=== PATIENT | female | born 1975 | race Caucasian/White ===

== ENCOUNTER 2016-08-12 08:06 | Emergency (ER) | payer OTHER ==
[2016-08-12 08:18] VITALS: BP 113/76; TEMP 98.7; BMI 28.3
--- NOTE | 2016-08-12 08:26 | PDOC ---
History of Present Illness - General Chief Complaint: Substance Abuse Stated Complaint: OVERDOSE Time Seen by Provider: 08/12/16 08:26 History Source: Patient - History of Present Illness Initial Comments: 08/12/16 09:09 Ms. Aragon is a dishevelled 40 y/o female with no reported PMH presenting to the ED today complaining of SOB. Pt. states that she has been out partying since Friday08/09/16 and stopped partying this morning 08/12/16. She states that she was drinking alcohol and experimenting with crack cocaine and dope all weekend. She denies IV drug use. Pt. states that once she stopped partying this morning she noticed she was short of breath. Pt. states she is short of breath at rest and it becomes worse with walking. Also admits to light headedness, dizziness, anxiety and palpitations. Denies chest pain, edema, N/V/ D. Pt. is an everyday smoker (10 cigarettes) with a 10 pack year history. Denies any sick contacts. In regards to her , Ms. Aragon is unsure of her LMP, but believes it to be around 05/20/16. She has not had any medical care regarding her . GENERAL/CONSTITUTIONAL: No fever or chills. No weakness. No weight change. HEAD, EYES, EARS, NOSE AND THROAT: No change in vision. No ear pain or discharge. No sore throat. CARDIOVASCULAR: No chest pain or palpitations. RESPIRATORY: (+) cough, shortness of breath, (-) wheezing. GASTROINTESTINAL: No nausea, vomiting, diarrhea or constipation. GENITOURINARY: No dysuria, frequency, or change in urination. MUSCULOSKELETAL: No joint or muscle swelling or pain. No neck or back pain. SKIN: No rash or easy bruising. NEUROLOGIC: No headache, vertigo, loss of consciousness, or loss of sensation. PSYCHIATRIC: (+) drug and alcohol abuse, anxiety. No depression. ENDOCRINE: No increased thirst. No abnormal weight change. HEMATOLOGIC/LYMPHATIC: No anemia, easy bleeding, or history of blood clots. ALLERGIC/IMMUNOLOGIC: No hives or skin allergy. No latex allergy. 08/12/16 10:52 08/12/16 13:38 Past History - Past Medical History Allergies/Adverse Reactions: Allergies Allergy/AdvReac Type Severity Reaction Status Date / Time No Known Allergies Allergy Verified 08/12/16 08:11 Home Medications: Ambulatory Orders NK [No Known Home Medication] 04/17/16 Anemia: Yes Asthma: Yes ( A CHILD-TEEN) Cancer: No Cardiac Disorders: No CVA: No COPD: No CHF: No Dementia: No Diabetes: No GI Disorders: No Disorders: No HTN: No Hypercholesterolemia: No Kidney Stones: No Liver Disease: No Suicide Attempt (Hx): No Seizures: No Thyroid Disease: No Other medical history: durg abuse - Surgical History Abdominal Surgery: Yes (gastric bypass) Appendectomy: No Cardiac Surgery: No Cholecystectomy: No Lung Surgery: No Neurologic Surgery: No Orthopedic Surgery: No - Reproductive History PID: No - Psycho/Social/Smoking Cessation Hx Anxiety: Yes Suicidal Ideation: No Smoking Status: Yes Smoking History: Current every day smoker Have you smoked in the past 12 months: Yes Number of Cigarettes Smoked Daily: 10 Information on smoking cessation initiated: Yes 'Breaking Loose' booklet given: 08/12/16 Hx Alcohol Use: Yes Drug/Substance Use Hx: Yes (alex,heroin,coccaine) Substance Use Type: Cocaine, Heroin, Marijuana Hx Substance Use Treatment: Yes ([facility] 05/01/12 TO 05/03/12) *Physical Exam - Vital Signs Last Vital Signs Temp Pulse Resp BP Pulse Ox 98.7 F 80 18 113/76 100 08/12/16 08:14 08/12/16 08:14 08/12/16 08:14 08/12/16 08:14 08/12/16 08:14 - Physical Exam Comments: 08/12/16 09:16 GENERAL: Anxious, dishevelled 40 y/o female AAOx3, pacing ED. NAD HEAD: Normal with no signs of trauma. ENT: Pupils equal, round and reactive to light, extraocular movements intact, sclera anicteric, conjunctiva clear. Neck supple. (-) erythema/ swelling in the posterior pharynx/nasal passages. LUNGS: Pt. speaking softly. Able to speak in full sentences. Clear to auscultation bilaterally. Normal excursion. No respiratory distress or use of accessory muscles. CV: RRR, S1/S2, no MRG. Cap refill < 2 sec. ABDOMEN: Soft, non-distended, non-tender. EXTREMITIES: Normal range of motion, no edema. NEUROLOGICAL: Normal speech, normal gait. CN II-XII grossly intact. PSYCH: Anxious, pacing ED. (+) opioid and alcohol abuse SKIN: Warm, dry, normal turgor, no rashes or lesions noted. ED Treatment Course - LABORATORY CBC & Chemistry Diagram: 08/12/16 09:08 08/12/16 09:08 Medical Decision Making - Medical Decision Making 08/12/16 09:20 Pt. is a 40 y/o female who is withdrawing from opioids and alcohol abuse. 1. Will order labs including CBC, CMP, Cardiac panel, EKG to rule out ACS. 2. Urine analysis with UTOX and ordered. 3. Symptomatic treatment including valium for anxiety, duoneb for shortness of breath and IV hydration 4. Will re-evaluate. 08/12/16 10:08 Pt. is at this time. Informed of status. 08/12/16 10:54 Pt. to be sent for transvaginal pelvic ultrasound to confirm status. 08/12/16 11:14 Drug screen is positive for cocaine, PCP, opiates, and marijuana. Pt. offered detox, but pt. denies needing it at this time. She is not interested in perusing detox further. 08/12/16 13:39 Transvaginal US shows a live IUP approximatley 6 weeks and 3 days in age. *DC/Admit/Observation/Transfer Diagnosis at time of Disposition: Polysubstance abuse Conjunctivitis Qualifiers: Conjunctivitis type: acute Acute conjunctivitis type: viral Laterality: bilateral Qualified Code(s): B30.9 - Viral conjunctivitis, unspecified - Discharge Dispostion Disposition: HOME Condition at time of disposition: Improved - Referrals Referrals: Betito Coy MD [Primary Care Provider] - - Patient Instructions Printed Discharge Instructions: Getting Treatment for Drug Addiction, DI for Conjunctivitis, Managing Symptoms of Additional Instructions: Blood tests today showed no acute abnormalities in the heart or lungs. The difficulty breathing was likely a reaction to the substances used this weekend. Avoid any and all drug use and alcohol use, especially since blood tests today confirmed you are (about 6 weeks based on the ultrasound). Seek help with a detox facility if needed. Consider calling our [facility] pavilion. Take over the counter benadryl for eye irritation. If symptoms persist after another 2 or 3 days, apply bacitracin twice daily to the affected eyes. Return to the Emergency Department for any new or concerning symptoms, including chest pain or shortness of breath, abdominal pain or vaginal discharge /bleeding, fever/chills, cough.
[2016-08-12] MEDS ORDERED: diazePAM CARPU-JECT 10 MG/2 ML DISP.SYRIN IVPUSH ONE (08:47)
[2016-08-12] MEDS ORDERED: SODIUM CHLORIDE 1,000 ML IV STA (08:50)
[2016-08-12] MEDS ORDERED: ALBUTEROL SO4 2.5/IPRATROPIUM 0.5 INH SOL 3 ML VIAL.NEB. NEB ONE (08:50)
[2016-08-12] MEDS ORDERED: diazePAM CARPU-JECT 10 MG/2 ML DISP.SYRIN ONE (08:56)
[2016-08-12 09:35] LABS: EOSINOPHIL 0.7 % (0-4.5); MCH 26.5 pg (25.7-33.7); MCHC 32.1 g/dl (32.0-36.0); MEAN CELL VOLUME 82.7 fl (80-96); MEAN PLT VOLUME 6.9 fl (7.5-11.1); PLATELET COUNT 287 K/MM3 (134-434); RDW 18.8 % (11.6-15.6); WHITE BLOOD COUNT 9.8 K/mm3 (4.0-10.0)
[2016-08-12 09:36] LABS: URINE APPEARANCE CLEAR; URINE BILIRUBIN NEGATIVE (NEGATIVE); URINE BLOOD NEGATIVE (NEGATIVE); URINE COLOR YELLOW; URINE GLUCOSE (UA) NEGATIVE (NEGATIVE); URINE KETONE NEGATIVE (NEGATIVE); URINE LEUK ESTERASE NEGATIVE (NEGATIVE); URINE NITRITE NEGATIVE (NEGATIVE); URINE PROTEIN NEGATIVE (NEGATIVE); URINE UROBILINOGEN NEGATIVE E.U./dl (0.2-1.0)
[2016-08-12 09:54] LABS: ALBUMIN 3.6 g/dl (3.4-5.0); ANION GAP 9 (8-16); BILIRUBIN,TOTAL 0.5 mg/dL (0.2-1.0); CALCIUM 8.2 mg/dL (8.5-10.1); CO2 25 mmol/L (21-32); CREATININE 0.5 mg/dL (0.55-1.02); GLUCOSE,RANDOM 98 mg/dL (74-106); SGOT/AST 30 U/L (15-37); SGPT/ALT 26 U/L (12-78); TOT PROT 6.9 g/dl (6.4-8.2)
[2016-08-12 09:55] LABS: TROPONIN I < 0.02 ng/ml (0.00-0.05)
--- NOTE | 2016-08-12 10:04 | PDOC ---
*Physical Exam - Vital Signs Last Vital Signs Temp Pulse Resp BP Pulse Ox 98.7 F 80 18 113/76 100 08/12/16 08:14 08/12/16 08:14 08/12/16 08:14 08/12/16 08:14 08/12/16 08:14 - Physical Exam Comments: 08/12/16 10:02 Vitals as noted. Ambulating comfortably, speaking full sentences, lungs are clear Heart Score/ECG Review #1 ECG reviewed & interpreted by me at: 09:33 General ECG Interpretation: Sinus Rhythm, Normal Rate (68), Normal Intervals ( qtc 489), No acute ischemic changes ED Treatment Course - LABORATORY CBC & Chemistry Diagram: 08/12/16 09:08 08/12/16 09:08 - ADDITIONAL ORDERS Additional order review: Laboratory Results 08/12/16 08/12/16 08/12/16 09:08 09:08 09:08 Sodium 140 Potassium 3.8 Chloride 106 Carbon Dioxide 25 Anion Gap 9 BUN 8 D Creatinine 0.5 L Creat Clearance w eGFR > 60 Random Glucose 98 Calcium 8.2 L Total Bilirubin 0.5 D AST 30 ALT 26 Creatine Kinase 581 H Troponin I < 0.02 Total Protein 6.9 Albumin 3.6 Urine Color Yellow Urine Appearance Clear Urine pH 7.0 Ur Specific [place] 1.024 Urine Protein Negative Urine Glucose (UA) Negative Urine Ketones Negative Urine Blood Negative Urine Nitrite Negative Urine Bilirubin Negative Urine Urobilinogen Negative Ur Leukocyte Esterase Negative Urine HCG, Qual 08/12/16 08:55 Sodium Potassium Chloride Carbon Dioxide Anion Gap BUN Creatinine Creat Clearance w eGFR Random Glucose Calcium Total Bilirubin AST ALT Creatine Kinase Troponin I Total Protein Albumin Urine Color Urine Appearance Urine pH Ur Specific [place] Urine Protein Urine Glucose (UA) Urine Ketones Urine Blood Urine Nitrite Urine Bilirubin Urine Urobilinogen Ur Leukocyte Esterase Urine HCG, Qual Positive 08/12/16 09:08 RBC 4.07 MCV 82.7 MCHC 32.1 RDW 18.8 H D MPV 6.9 L Neutrophils % 70.0 Lymphocytes % 19.5 Monocytes % 8.8 Eosinophils % 0.7 Basophils % 1.0 - Medications Given in the ED: ED Medications Discontinued Medications Generic Name Dose Route Start Last Admin Trade Name Freq PRN Reason Stop Dose Admin Albuterol/Ipratropium 1 amp 08/12/16 08:50 08/12/16 09:17 Duoneb - NEB 08/12/16 08:51 1 amp ONCE ONE Administration Diazepam 5 mg 08/12/16 08:47 08/12/16 09:17 Valium Injection - IVPUSH 08/12/16 08:48 5 mg ONCE ONE Administration Sodium Chloride 1,000 mls @ 1,000 mls/hr 08/12/16 08:50 08/12/16 09:17 Normal Saline - IV 08/12/16 09:49 1,000 mls/hr ASDIR STA Administration Medical Decision Making - Medical Decision Making 08/12/16 10:02 Patient seen and evaluated with the nurse practitioner. I agree with the overall evaluation, assessment, and management with the following summary of visit: 40-year-old female presents after weekend of polysubstance abuse with difficulty breathing, agitation. Rule out cardiopulmonary injury and substance abuse, likely has early withdrawal as well. Full set of labs including troponin EKG is nonischemic Chest x-ray Trial of nebulizers, Valium intravenously for withdrawal Will reassess, admission versus detox *DC/Admit/Observation/Transfer Diagnosis at time of Disposition: Polysubstance abuse - Referrals Referrals: Betito Coy MD [Primary Care Provider] -
[2016-08-12 10:12] LABS: ALK PHOS 75 U/L (45-117)
--- NOTE | 2016-08-12 10:59 | EKG ---
Test Reason : Blood Pressure : / mmHG Vent. Rate : 068 BPM Atrial Rate : 068 BPM P-R Int : 132 ms QRS Dur : 086 ms QT Int : 460 ms P-R-T Axes : 062 048 046 degrees QTc Int : 489 ms NORMAL SINUS RHYTHM PROLONGED QT ABNORMAL ECG NO PREVIOUS ECGS AVAILABLE Confirmed by MARTIN CANTRELL MD ([id number]) on 08/12/2016 10:59:14 AM Referred By: Confirmed By:MARTIN CANTRELL MD
[2016-08-12 11:01] LABS: URINE MARIJUANA THC POSITIVE ng/ml (CUTOFF=50)
[2016-08-12] MEDS ORDERED: BACITRACIN 0.9 GM PACKET ONE (13:51)
[2016-08-12 13:55] VITALS: PULSE 90
== END 2016-08-12 13:55 | disposition home or self-care (01) ==
LOC: JER 08:06
PROC: 3E0F7GC Introduction of Other Therapeutic Substance into Respiratory Tract, Via Natural or Artificial Opening (ICD-10-PCS; principal; 2016-08-12)
PROC: 3E0337Z Introduction of Electrolytic and Water Balance Substance into Peripheral Vein, Percutaneous Approach (ICD-10-PCS; 2016-08-12)
PROC: 3E033NZ Introduction of Analgesics, Hypnotics, Sedatives into Peripheral Vein, Percutaneous Approach (ICD-10-PCS; 2016-08-12)
DX: F19.10 Other psychoactive substance abuse, uncomplicated (principal); H10.33 Unspecified acute conjunctivitis, bilateral; B30.9 Viral conjunctivitis, unspecified; F17.210 Nicotine dependence, cigarettes, uncomplicated; Z3A.01 Less than 8 weeks gestation of pregnancy
CPT/HCPCS: 36415; 71020-TC; 76801-TC; 80053; 80307; 81003; 82550; 82553; 84484; 84702; 85025; 93005; 93010; 94640; 96361; 96374; 99285-25

== ENCOUNTER 2017-01-13 23:54 | Emergency (ER) | payer OTHER ==
--- NOTE | 2017-01-14 00:02 | PDOC ---
History of Present Illness - General Chief Complaint: Psychiatric Stated Complaint: STATES SHE CANT BREATHE Time Seen by Provider: 01/13/17 23:58 History Source: Patient Exam Limitations: No Limitations ((Awais rincon) - History of Present Illness Initial Comments: 01/13/17 23:58 This is a 41-year-old female who comes in with her significant other. Patient is heavily intoxicated and having an anxiety/panic attack. Patient is asking for benzos for her anxiety panic attack. Patient's significant other said she is an alcoholic and needs detox. Otherwise patient is complaining of shortness of breath. Patient is not had any recent upper respiratory tract infections. There is been no chest pain, nausea, vomiting, diarrhea, fever, chills or any other complaints. PAST MEDICAL HISTORY: Alcohol dependence PAST SURGICAL HISTORY: no significant history FAMILY HISTORY: no pertinant history SOCIAL HISTORY: Pt lives with family MEDICATIONS: reviewed ALLERGIES: As per nursing notes Review of Systems General: No fevers or chills, no weakness, no weight loss HEENT: No change in vision. No sore throat,. No ear pain CardioVascular: No chest pain or shortness of breath Respiratory:No cough, or wheezing. Gastrointestinal: no nausea, vomitting, diarrhea or constipation, No rectal bleeding Genitourinary: No dysuria, hematuria, or frequency Musculoskeletal: No joint or muscle pain or swelling Neurologic: No headache, vertigo, dizziness or loss of consciousness Psychiatric: Alcohol on breath Skin: No rashes or easy bruising Endocrine: no increased thirst or abnormal weight change Allergic: no skin or latex allergy All other systems reviewed and normal Exam: General: Well-nourished well-developed individual, no acute distress, positive alcohol on breath HEENT: Throat: Normal, tonsils normal, no erythema or exudate Neck: Supple, no meningeal signs, no lymphadenopathy Eyes::Pupils equal reactive and round, extraocular motion intact Chest: Nontender to palpation Cardiac: S1-S2 normal, regular rate and rhythm, no murmurs rubs or gallops Respiratory: Lungs clear to auscultation bilateral Abdomen: Soft, nondistended, normal bowel sounds, nontender to palpation diffusely Extremities: Warm, dry, no cyanosis, clubbing, or edema Skin: No rashes Neuro: Alert and oriented x3, nonfocal exam, grossly intact, normal gait Psych: Normal mood and affect Assessment and plan: This is a 41-year-old female with alcohol intoxication. Patient comes in with her significant other, is ambulatory in the emergency room with somewhat unsteady gait. Patient otherwise has minimally slurred speech. Patient's significant other is willing to take her home watch her overnight and take her to [facility] in the morning for alcohol detox. Past History - Past Medical History Allergies/Adverse Reactions: Allergies Allergy/AdvReac Type Severity Reaction Status Date / Time No Known Allergies Allergy Verified 01/13/17 23:55 Home Medications: Ambulatory Orders NK [No Known Home Medication] 04/17/16 Anemia: Yes Asthma: Yes ( A CHILD-TEEN) Cancer: No Cardiac Disorders: No CVA: No COPD: No CHF: No Dementia: No Diabetes: No GI Disorders: No Disorders: No HTN: No Hypercholesterolemia: No Kidney Stones: No Liver Disease: No Suicide Attempt (Hx): No Seizures: No Thyroid Disease: No - Surgical History Abdominal Surgery: Yes (gastric bypass) Appendectomy: No Cardiac Surgery: No Cholecystectomy: No Lung Surgery: No Neurologic Surgery: No Orthopedic Surgery: No - Reproductive History PID: No - Psycho/Social/Smoking Cessation Hx Anxiety: Yes Suicidal Ideation: No Smoking Status: Yes Smoking History: Current every day smoker Have you smoked in the past 12 months: Yes Number of Cigarettes Smoked Daily: 10 'Breaking Loose' booklet given: 08/12/16 Hx Alcohol Use: Yes Drug/Substance Use Hx: Yes (alex,heroin,coccaine) Substance Use Type: Cocaine, Heroin, Marijuana Hx Substance Use Treatment: Yes ([facility] 05/01/12 TO 05/03/12) *DC/Admit/Observation/Transfer Diagnosis at time of Disposition: Alcohol intoxication - Discharge Dispostion Disposition: HOME Condition at time of disposition: Stable Admit: No - Patient Instructions Additional Instructions: You need alcohol detox. In the morning go to [facility] [address] in [facility]. The phone number is [phone] Return to the emergency department immediately with ANY new, persistent or worsening symptoms. Continue any medications as previously prescribed by your physician. You should follow up with your primary doctor as soon as possible regarding today's emergency department visit. . Please make sure your doctor reviews the results of your emergency evaluation. Thank you for coming to the Emergency Department today for your care. It was a pleasure to see you today. Please note that your evaluation is INCOMPLETE until you follow-up with your doctor.
[2017-01-14 00:03] VITALS: BP 103/66; PULSE 73; TEMP 97
== END 2017-01-14 00:16 | disposition home or self-care (01) ==
LOC: FER 23:54
DX: F10.120 Alcohol abuse with intoxication, uncomplicated (principal); F17.210 Nicotine dependence, cigarettes, uncomplicated; Z98.84 Bariatric surgery status; J45.909 Unspecified asthma, uncomplicated
CPT/HCPCS: 99281-25

== ENCOUNTER 2017-04-14 09:59 | Emergency (ER) | payer OTHER ==
[2017-04-14 10:07] VITALS: BP 119/70; PULSE 76; TEMP 98.6; BMI 30.2
[2017-04-14] MEDS ORDERED: IBUPROFEN 600 MG TABLET (FP) PO ONE ×2 (12:14→12:26)
--- NOTE | 2017-04-14 12:22 | PDOC ---
History of Present Illness - General Chief Complaint: Wound Stated Complaint: RT FINGER PAIN Time Seen by Provider: 04/14/17 11:33 History Source: Patient Exam Limitations: No Limitations - History of Present Illness Initial Comments: 04/14/17 19:49 My chief complaint: Tenderness and redness around nailbed right middle finger History of present illness: Patient is a 41-year-old female with h/o anemia here today complaining of worsening tenderness or redness around her right middle nailbed for one week. Patient denies getting any manicure however despite her cuticles at times. Patient is up-to-date with tetanus. Patient denies any fever. 04/14/17 19:50 04/14/17 19:52 Timing/Duration: getting worse Severity: moderate Associated Symptoms: reports: denies symptoms Past History - Past Medical History Allergies/Adverse Reactions: Allergies Allergy/AdvReac Type Severity Reaction Status Date / Time No Known Allergies Allergy Verified 04/14/17 10:04 Home Medications: Ambulatory Orders Cephalexin Monohydrate [Keflex -] 500 mg PO Q8H #20 capsule 04/14/17 Anemia: Yes Asthma: Yes ( A CHILD-TEEN) Cancer: No Cardiac Disorders: No CVA: No COPD: No CHF: No Dementia: No Diabetes: No GI Disorders: No Disorders: No HTN: No Hypercholesterolemia: No Kidney Stones: No Liver Disease: No Seizures: No Thyroid Disease: No - Surgical History Abdominal Surgery: Yes (gastric bypass) Appendectomy: No Cardiac Surgery: No Cholecystectomy: No Lung Surgery: No Neurologic Surgery: No Orthopedic Surgery: No - Reproductive History PID: No - Immunization History Immunization Up to Date: Yes - Suicide/Smoking/Psychosocial Hx Smoking Status: Yes Smoking History: Current every day smoker Have you smoked in the past 12 months: Yes Number of Cigarettes Smoked Daily: 10 Information on smoking cessation initiated: No 'Breaking Loose' booklet given: 08/12/16 Hx Alcohol Use: No Drug/Substance Use Hx: No Substance Use Type: Cocaine, Heroin, Marijuana Hx Substance Use Treatment: Yes ([facility] 05/01/12 TO 05/03/12) Review of Systems - Review of Systems Able to Perform ROS?: Yes Constitutional: No: Symptoms Reported HEENTM: No: Symptoms Reported Respiratory: No: Symptoms reported Cardiac (ROS): No: Symptoms Reported ABD/GI: No: Symptoms Reported : No: Symptoms Reported Musculoskeletal: No: Symptoms Reported Integumentary: Yes: Other (redness and edema rt. middle finger around nailbed) Neurological: No: Symptoms reported *Physical Exam - Vital Signs Last Vital Signs Temp Pulse Resp BP Pulse Ox 98.6 F 76 18 119/70 98 04/14/17 10:04 04/14/17 10:04 04/14/17 10:04 04/14/17 10:04 04/14/17 10:04 - Physical Exam General Appearance: Yes: Appropriately Dressed Integumentary: positive: Erythema (edema, tenderness eponchium rt. middle finger ), Swelling (rt. middle finger around nailbed) Procedures - Consent Consent obtained: From Patient - Incision and Drainage I&D Site: Right: Other (around nailbed middle) Betadine cleansed: Yes Attempts: 1 (18 gauge) Progress: 04/14/17 12:20 Medical Decision Making - Medical Decision Making 04/14/17 19:51 Patient is a 41-year-old female with h/'o anemia here today complaining of worsening tenderness or redness around her right middle nailbed for one week. Patient denies getting any manicure however despite her cuticles at times. Patient is up-to-date with tetanus. Patient denies any fever. Middle finger Paronychiium PLAN: Wound C& S right middle finger I&D of right middle finger abscess around nailbed using an 18-gauge needle with moderate amount of purulent discharge. Keflex 500 mg by mouth now then every 8 hours 7 days Patient instructed to go home and soak finger in warm salt water every few hours today 04/14/17 19:53 *DC/Admit/Observation/Transfer Diagnosis at time of Disposition: Paronychia of right middle finger - Discharge Dispostion Disposition: HOME Condition at time of disposition: Stable - Prescriptions Prescriptions: Cephalexin Monohydrate [Keflex -] 500 mg PO Q8H #20 capsule - Referrals Referrals: Betito Coy MD [Primary Care Provider] - - Patient Instructions Additional Instructions: Follow up with your primary care provider in 2 days ' Your finger in warm salt water mix half a teaspoon of salt with 8 ounces of water every 2 hours today while awake and gently squeeze the area around her nail to help drainage of finger Return to emergency room if any increased swelling of finger or redness or fever Take ibuprofen as needed as to by documentation spec for pain thank you for choosing [facility] emergency room for your medical needs today - Post Discharge Activity Forms/Work/School Notes: Back to Work
[2017-04-14] MEDS ORDERED: CEPHALEXIN MONOHYDRATE 500 MG CAPSULE (UD) PO ONE (12:26)
== END 2017-04-14 12:31 | disposition home or self-care (01) ==
LOC: JERFT 09:59
PROC: 0H9QXZZ Drainage of Finger Nail, External Approach (ICD-10-PCS; principal; 2017-04-14)
DX: L03.011 Cellulitis of right finger (principal)
CPT/HCPCS: 10160; 87070; 87186; 87205; 99281-25

== ENCOUNTER 2017-05-26 15:40 | Inpatient (IN) | payer OTHER ==
[2017-05-26 17:22] VITALS: BMI 30.9
--- NOTE | 2017-05-26 19:44 | HP ---
Admission ROS [facility] Chief Complaint: I WANT TO GO TO REHAB Allergies/Adverse Reactions: Allergies Allergy/AdvReac Type Severity Reaction Status Date / Time No Known Allergies Allergy Verified 05/26/17 17:46 History of Present Illness: 41 YEARS OLD FEMALE WITH LONG HISTORY OF ALCOHOL, COCAINE NICOTINE DEPENDENCE DENIES MEDICAL ISSUE HAS ANXIETY CONSTIPATION IS ADMITTED TO REHAB Exam Limitations: No Limitations - Ebola screening Have you traveled outside of the country in the last 21 days: No Have you had contact with anyone from an Ebola affected area: No Have you been sick,other than usual withdrawal symptoms: No Do you have a fever: No - Review of Systems Constitutional: No Symptoms Reported EENT: reports: No Symptoms Reported Respiratory: reports: No Symptoms reported Cardiac: reports: No Symptoms Reported GI: reports: Constipated : reports: No Symptoms Reported Musculoskeletal: reports: No Symptoms Reported Integumentary: reports: No Symptoms Reported Neuro: reports: No Symptoms reported Endocrine: reports: No Symptoms Reported Hematology: reports: No Symptoms Reported Psychiatric: reports: No Sypmtoms Reported, Judgement Intact, Mood/Affect Appropiate, Orientated x3 Other Systems: Reviewed and Negative Patient History - Patient Medical History Hx Anemia: Yes (NO TREATMENT) Hx Asthma: Yes ( A CHILD-TEEN) Hx Chronic Obstructive Pulmonary Disease (COPD): No Hx Cancer: No Hx Cardiac Disorders: No Hx Congestive Heart Failure: No Hx Hypertension: No Hx Hypercholesterolemia: No Hx Pacemaker: No HX Cerebrovascular Accident: No Hx Seizures: No Hx Dementia: No Hx Diabetes: No Hx Gastrointestinal Disorders: No Hx Liver Disease: No Hx Genitourinary Disorders: No Hx Sexually Transmitted Disorders: No Hx Renal Disease (ESRD): No Hx Thyroid Disease: No Hx Human Immunodeficiency Virus (HIV): No (LAST 02/02 NEGATIVE) Hx Hepatitis C: No Hx Depression: Yes Hx Suicide Attempt: Yes (2006 OVERDOSE) Hx Bipolar Disorder: No Hx Schizophrenia: No - Patient Surgical History Past Surgical History: Yes Hx Neurologic Surgery: No Hx Cataract Extraction: No Hx Cardiac Surgery: No Hx Lung Surgery: No Hx Breast Surgery: No Hx Breast Biopsy: No Hx Abdominal Surgery: Yes (gastric bypass 2002) Hx Appendectomy: No Hx Cholecystectomy: No Hx Genitourinary Surgery: No Hx Section: Yes (2) Hx Orthopedic Surgery: No Hx Hysterectomy: No Other Surgical History: Gastric bypass in 2002,surgery for carpel tunnel left wrist Anesthesia Reaction: No - PPD History Previous Implant?: Yes Documented Results: Negative w/proof Implanted On Prior [facility] Admission?: Yes Date: 02/25/16 PPD to be Administered?: Yes - Reproductive History Patient is a Female of Child Bearing Age (11 -55 yrs old): Yes Last Menstrual Period: 04/25/17 Patient : No - Smoking Cessation Smoking history: Current every day smoker Have you smoked in the past 12 months: Yes Aproximately how many cigarettes per day: 10 Cigars Per Day: 0 Hx Chewing Tobacco Use: No Initiated information on smoking cessation: Yes 'Breaking Loose' booklet given: 05/26/17 - Substance & Tx. History Hx Alcohol Use: Yes Hx Substance Use: Yes Substance Use Type: Alcohol, Cocaine Hx Substance Use Treatment: Yes (2015 [facility]) - Substances Abused Alcohol Route: Oral Frequency: 3-6 times per week (2 PINT) Amount used: PINTS VODKA Age of first use: 28 Date of Last Use: 05/22/17 Family Disease History - Family Disease History Family Disease History: CA: Father (), Other: Father Admission Physical Exam S - Vital Signs Vital Signs: Vital Signs - 24 hr 05/26/17 17:20 Temperature 98.2 F Pulse Rate 122 H Respiratory 20 Rate Blood Pressure 106/67 - Physical General Appearance: Yes: No Apparent Distress, Appropriately Dressed, Obese HEENTM: Yes: Hearing grossly Normal, Normal ENT Inspection, Normocephalic, Normal Voice Respiratory: Yes: Chest Non-Tender, Lungs Clear, Normal Breath Sounds, No Respiratory Distress, No Accessory Muscle Use Neck: Yes: Supple, Trachea in good position Breast: Yes: Breasts Symetrical Cardiology: Yes: Regular Rhythm, S1, S2, Tachycardia Abdominal: Yes: Non Tender, Soft, Decreased BS Genitourinary: Yes: Within Normal Limits Back: Yes: Normal Inspection Musculoskeletal: Yes: full range of Motion, Gait Steady Extremities: Yes: Normal Inspection, Normal Range of Motion, Non-Tender Neurological: Yes: Fully Oriented, Alert, Motor Strength 5/5, Normal Mood/Affect , Normal Response Integumentary: Yes: Warm Lymphatic: Yes: Within Normal Limits - Diagnostic (1) Alcohol dependence with uncomplicated withdrawal Current Visit: Yes Status: Acute (2) Nicotine dependence Current Visit: Yes Status: Acute Qualifiers: Nicotine product type: cigarettes Substance use status: in withdrawal Qualified Code(s): F17.213 - Nicotine dependence, cigarettes, with withdrawal; F17.213 - Nicotine dependence, cigarettes, with withdrawal (3) Constipation Current Visit: Yes Status: Chronic Qualifiers: Constipation type: slow transit constipation Qualified Code(s): K59.01 - Slow transit constipation; K59.01 - Slow transit constipation (4) Depression (emotion) Current Visit: Yes Status: Suspected Qualifiers: Depression Type: dysthymia Qualified Code(s): F34.1 - Dysthymic disorder; F34.1 - Dysthymic disorder; F34.1 - Dysthymic disorder Cleared for Admission [facility] - Detox or Rehab [facility] Level of Care: Observation Bed Detox Regimen/Protocol: Not Applicable Claeared for Rehab Admission: Yes [facility] Breath Alcohol Content Breath Alcohol Content: 0 Urine Pregancy Test - Result Urine Test Results: Negative- NO Line Present Urine Drug Screen - Results Drug Screen Negative: Yes Inpatient Rehab Admission - Initial Determination Are CD services needed?: Yes Free of communicable disease: Yes Not in need of hospitalization: Yes - Rehab Admission Criteria Previous failed treatment: Yes Poor recovery environment: Yes Comorbidities: Yes Lacks judgement: No Patient is meeting Inpatient Rehab admission criteria:: Yes
[2017-05-26] MEDS ORDERED: guaiFENesin/D-METHORPHAN HB 10 ML UNIT-DOSE CUPS PO PRN (19:50)
[2017-05-26] MEDS ORDERED: MAG HYDROX/AL HYDROX/SIMETH 30 ML UNIT-DOSE CUP PO PRN (19:50)
[2017-05-26] MEDS ORDERED: ACETAMINOPHEN 325 MG TABLET (FP) PO PRN (19:50)
[2017-05-26] MEDS ORDERED: MAGNESIUM CITRATE 300 ML BOTTLE PO PRN (19:50)
[2017-05-26] MEDS ORDERED: MENTHOL/PHENOL 1 EACH UD MM PRN (19:50)
[2017-05-26] MEDS ORDERED: P-EPHED 60MG/TRIPROLIDI 2.5MG TABLET PO PRN (19:50)
[2017-05-26] MEDS ORDERED: LOPERAMIDE HCL 2 MG CAPSULE PO PRN (19:50)
[2017-05-26] MEDS: DOCUSATE SODIUM 100 MG CAPSULE (FP) PO SCH (22:21)
[2017-05-26] MEDS: GABAPENTIN 300 MG CAPSULE (FP) PO SCH (22:21)
[2017-05-26] MEDS: THIAMINE HCL 100 MG TABLET (FP) PO SCH (22:22)
[2017-05-26] MEDS ORDERED: hydrOXYzine PAMOATE 50 MG CAPSULE (FP) PO ONE (22:31)
[2017-05-27 00:28] LABS: PH,URINE 5.5 (5.0-8.0); URINE APPEARANCE CLEAR; URINE BILIRUBIN NEGATIVE (NEGATIVE); URINE BLOOD TRACE-INTA (NEGATIVE); URINE COLOR LT. YELLOW; URINE GLUCOSE (UA) NEGATIVE (NEGATIVE); URINE KETONE NEGATIVE (NEGATIVE); URINE NITRITE NEGATIVE (NEGATIVE); URINE PROTEIN NEGATIVE (NEGATIVE); URINE UROBILINOGEN 0.2 mg/dL (0.2-1.0)
[2017-05-27] MEDS: GABAPENTIN 300 MG CAPSULE (FP) PO SCH ×3 (06:51→21:18)
[2017-05-27 09:35] LABS: URINE LEUK ESTERASE 1+ (NEGATIVE); URINE RBC 0-3 /hpf (0-3)
[2017-05-27 09:36] LABS: URINE BACTERIA FEW /hpf (NEGATIVE)
[2017-05-27] MEDS: PRENATAL VITAMINS W/ FOLIC ACID TABLET (FP) PO SCH (10:04)
[2017-05-27] MEDS: DOCUSATE SODIUM 100 MG CAPSULE (FP) PO SCH ×2 (10:04→21:18)
[2017-05-27] MEDS: NICOTINE 14 MG/24 HOURS TOPICAL PATCH TD SCH (10:05)
[2017-05-27] MEDS: DULoxetine HCL 60 MG CAPSULE.DR PO SCH (12:37)
[2017-05-27 14:36] LABS: MCH 20.7 pg (25.7-33.7); MCHC 29.9 g/dl (32.0-36.0); MEAN CELL VOLUME 69.3 fl (80-96); MEAN PLT VOLUME 7.2 fl (7.5-11.1); PLATELET COUNT 340 K/MM3 (134-434); RDW 21.4 % (11.6-15.6); WHITE BLOOD COUNT 8.6 K/mm3 (4.0-10.0)
[2017-05-27 15:17] LABS: ALBUMIN 3.6 g/dl (3.4-5.0); ALK PHOS 81 U/L (45-117); ANION GAP 11 (8-16); BILIRUBIN,TOTAL 0.2 mg/dL (0.2-1.0); CALCIUM 8.3 mg/dL (8.5-10.1); CO2 21 mmol/L (21-32); CREATININE 0.7 mg/dL (0.55-1.02); GLUCOSE,RANDOM 53 mg/dL (74-106); SGOT/AST 15 U/L (15-37); SGPT/ALT 19 U/L (12-78); TOT PROT 7.2 g/dl (6.4-8.2)
[2017-05-27] MEDS: THIAMINE HCL 100 MG TABLET (FP) PO SCH (21:18)
[2017-05-27] MEDS: MIRTAZAPINE 15 MG TABLET (FP) PO SCH (21:21)
--- NOTE | 2017-05-27 21:30 | EKG ---
Test Reason : Blood Pressure : / mmHG Vent. Rate : 091 BPM Atrial Rate : 091 BPM P-R Int : 142 ms QRS Dur : 082 ms QT Int : 372 ms P-R-T Axes : 071 056 054 degrees QTc Int : 457 ms NORMAL SINUS RHYTHM BASELINE ARTIFACTS WHEN COMPARED WITH ECG OF 12-AUG-2016 09:33, NO SIGNIFICANT CHANGE WAS FOUND Confirmed by LIAM SAWANT MD ([id number]) on 05/27/2017 9:29:29 PM Referred By: Confirmed By:LIAM SAWANT MD
[2017-05-27] MEDS ORDERED: traZODone HCL 50 MG TABLET (FP) PO SCH (22:00)
[2017-05-28] MEDS: GABAPENTIN 300 MG CAPSULE (FP) PO SCH ×2 (07:29→13:12)
[2017-05-28] MEDS ORDERED: PT OWN MED DRAWER 7, Y5N ONE (08:42)
[2017-05-28] MEDS: PRENATAL VITAMINS W/ FOLIC ACID TABLET (FP) PO SCH (10:20)
[2017-05-28] MEDS: DOCUSATE SODIUM 100 MG CAPSULE (FP) PO SCH ×2 (10:20→21:19)
[2017-05-28] MEDS: DULoxetine HCL 60 MG CAPSULE.DR PO SCH (10:21)
[2017-05-28] MEDS: NICOTINE 14 MG/24 HOURS TOPICAL PATCH TD SCH (10:21)
[2017-05-28] MEDS: FERROUS SO4 325 MG TABLET (FP) PO SCH ×2 (12:15→17:33)
[2017-05-28 13:44] LABS: HIV 1 & 2 AB NEGATIVE; HIV 1 AGp24 NEGATIVE
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
[2017-05-28] MEDS ORDERED: GABAPENTIN 300 MG CAPSULE (FP) PO PRN (14:02)
[2017-05-28] MEDS ORDERED: hydrOXYzine PAMOATE 50 MG CAPSULE (FP) PO PRN (14:04)
[2017-05-28] MEDS: traZODone HCL 50 MG TABLET (FP) PO SCH (21:19)
[2017-05-28] MEDS: MIRTAZAPINE 15 MG TABLET (FP) PO SCH (21:19)
[2017-05-28] MEDS: THIAMINE HCL 100 MG TABLET (FP) PO SCH (21:20)
[2017-05-29] MEDS: FERROUS SO4 325 MG TABLET (FP) PO SCH ×3 (07:33→17:54)
[2017-05-29] MEDS: NICOTINE 14 MG/24 HOURS TOPICAL PATCH TD SCH (10:09)
[2017-05-29] MEDS: PRENATAL VITAMINS W/ FOLIC ACID TABLET (FP) PO SCH (10:09)
[2017-05-29] MEDS: DOCUSATE SODIUM 100 MG CAPSULE (FP) PO SCH ×2 (10:09→21:17)
[2017-05-29] MEDS: DULoxetine HCL 60 MG CAPSULE.DR PO SCH (10:09)
[2017-05-29] MEDS ORDERED: FLUCONAZOLE 100 MG TABLET (UD) PO ONE (14:37)
--- NOTE | 2017-05-29 14:43 | PN ---
S Progress Note (SOAP) Subjective: c/o vaginal discharge , lightheaded Objective: 05/29/17 14:39 Vital Signs - 8 hr 05/29/17 07:05 Temperature 97.8 F Pulse Rate 87 Respiratory 18 Rate Blood Pressure 111/74 Laboratory Tests 05/26/17 05/27/17 05/27/17 22:43 08:30 08:30 WBC 8.6 RBC 4.41 Hgb 9.1 L D Hct 30.5 L MCV 69.3 L MCH 20.7 L MCHC 29.9 L RDW 21.4 H D Plt Count 340 MPV 7.2 L Hypersegmented Neuts Cancelled Hypochromia Cancelled Toxic Granulation Cancelled Dohle Bodies Cancelled Polychromasia Cancelled Poikilocytosis Cancelled Basophilic Stippling Cancelled Anisocytosis Cancelled Microcytosis Cancelled Macrocytosis Cancelled Spherocytes Cancelled Siderocytes Cancelled Sickle Cells Cancelled Target Cells Cancelled Tear Drop Cells Cancelled Ovalocytes Cancelled Stomatocytes Cancelled Helmet Cells Cancelled [place] Bodies Cancelled [place] Rings Cancelled [place] Cells Cancelled Acanthocytes (Spur) Cancelled Rouleaux Cancelled Fragmented RBCs Cancelled Schistocytes Cancelled Morphology Comment Cancelled Sodium Potassium Chloride Carbon Dioxide Anion Gap BUN Creatinine Creat Clearance w eGFR Random Glucose Calcium Total Bilirubin AST ALT Alkaline Phosphatase Total Protein Albumin Urine Color Lt. yellow Urine Appearance Clear Urine pH 5.5 D Ur Specific [place] >= 1.030 Urine Protein Negative Urine Glucose (UA) Negative Urine Ketones Negative Urine Blood Trace-inta Urine Nitrite Negative Urine Bilirubin Negative Urine Urobilinogen 0.2 Ur Leukocyte Esterase 1+ H Urine RBC 0-3 Urine WBC 3-5 Ur Epithelial Cells Few Urine Bacteria Few RPR Titer HIV 1&2 Antibody Screen Negative HIV P24 Antigen Negative 05/27/17 05/27/17 08:30 08:30 WBC RBC Hgb Hct MCV MCH MCHC RDW Plt Count MPV Hypersegmented Neuts Hypochromia Toxic Granulation Dohle Bodies Polychromasia Poikilocytosis Basophilic Stippling Anisocytosis Microcytosis Macrocytosis Spherocytes Siderocytes Sickle Cells Target Cells Tear Drop Cells Ovalocytes Stomatocytes Helmet Cells [place]val[place] Bodies [place] Rings Mineral Cells Acanthocytes (Spur) Rouleaux Fragmented RBCs Schistocytes Morphology Comment Sodium 139 Potassium 4.0 Chloride 107 Carbon Dioxide 21 Anion Gap 11 BUN 14 D Creatinine 0.7 D Creat Clearance w eGFR > 60 Random Glucose 53 L D Calcium 8.3 L Total Bilirubin 0.2 D AST 15 D ALT 19 D Alkaline Phosphatase 81 Total Protein 7.2 Albumin 3.6 Urine Color Urine Appearance Urine pH Ur Specific [place] Urine Protein Urine Glucose (UA) Urine Ketones Urine Blood Urine Nitrite Urine Bilirubin Urine Urobilinogen Ur Leukocyte Esterase Urine RBC Urine WBC Ur Epithelial Cells Urine Bacteria RPR Titer Nonreactive HIV 1&2 Antibody Screen HIV P24 Antigen hypoglycemic, anemic Assessment: 05/29/17 14:40 iron deficiency anemia, hypoglycemia, yeast/bacterial vaginosis Plan: ferrous suphate tid, senna added for constipation, diflucan for yeast, metrogel for bacterial vaginosis, will review psych meds with psychiatrist
[2017-05-29] MEDS ORDERED: PT OWN MED DRAWER 7, Y5N ONE ×3 (15:56→22:07)
[2017-05-29] MEDS: VITAMINS A AND D TOPICAL OINTMENT 60 GM TUBE TP SCH ×2 (16:02→17:54)
[2017-05-29] MEDS: metroNIDAZOLE 0.75% VAGINAL GEL 70 GM TUBE VG SCH ×2 (16:03→22:07)
[2017-05-29] MEDS: MIRTAZAPINE 15 MG TABLET (FP) PO SCH (21:17)
[2017-05-29] MEDS: THIAMINE HCL 100 MG TABLET (FP) PO SCH (21:17)
[2017-05-29] MEDS: SENNOSIDES 8.6MG TABLET (FP) PO SCH (21:18)
[2017-05-29] MEDS: traZODone HCL 50 MG TABLET (FP) PO SCH (21:18)
[2017-05-30] MEDS: VITAMINS A AND D TOPICAL OINTMENT 60 GM TUBE TP SCH ×4 (00:30→17:54)
[2017-05-30] MEDS: FERROUS SO4 325 MG TABLET (FP) PO SCH ×3 (06:59→17:53)
[2017-05-30] MEDS: NICOTINE 14 MG/24 HOURS TOPICAL PATCH TD SCH (10:12)
[2017-05-30] MEDS: DOCUSATE SODIUM 100 MG CAPSULE (FP) PO SCH ×2 (10:13→22:00)
[2017-05-30] MEDS: DULoxetine HCL 60 MG CAPSULE.DR PO SCH (10:13)
[2017-05-30] MEDS: PRENATAL VITAMINS W/ FOLIC ACID TABLET (FP) PO SCH (10:13)
[2017-05-30] MEDS ORDERED: ONDANSETRON *ODT* 4 MG TABLET SL PRN (11:19)
[2017-05-30] MEDS ORDERED: ONDANSETRON *ODT* 4 MG TABLET SL ONE (11:19)
[2017-05-30] MEDS ORDERED: PT OWN MED DRAWER 7, Y5N ONE ×2 (12:13→19:31)
[2017-05-30] MEDS: metroNIDAZOLE 0.75% VAGINAL GEL 70 GM TUBE VG SCH (21:23)
[2017-05-30] MEDS: THIAMINE HCL 100 MG TABLET (FP) PO SCH (21:24)
[2017-05-30] MEDS: traZODone HCL 50 MG TABLET (FP) PO SCH (21:24)
[2017-05-30] MEDS: MIRTAZAPINE 15 MG TABLET (FP) PO SCH (21:24)
[2017-05-30] MEDS: SENNOSIDES 8.6MG TABLET (FP) PO SCH (21:24)
[2017-05-31] MEDS: VITAMINS A AND D TOPICAL OINTMENT 60 GM TUBE TP SCH ×4 (00:15→17:12)
[2017-05-31] MEDS: FERROUS SO4 325 MG TABLET (FP) PO SCH ×3 (07:05→17:11)
[2017-05-31] MEDS: PRENATAL VITAMINS W/ FOLIC ACID TABLET (FP) PO SCH (09:43)
[2017-05-31] MEDS: DULoxetine HCL 60 MG CAPSULE.DR PO SCH (09:43)
[2017-05-31] MEDS: NICOTINE 14 MG/24 HOURS TOPICAL PATCH TD SCH (09:43)
[2017-05-31] MEDS: DOCUSATE SODIUM 100 MG CAPSULE (FP) PO SCH ×2 (09:44→21:23)
[2017-05-31] MEDS: MAGNESIUM HYDROX 2400MG/30ML ORAL SUSPENSION 30 ML CUP PO PRN (12:38)
[2017-05-31] MEDS: MIRTAZAPINE 15 MG TABLET (FP) PO SCH (21:23)
[2017-05-31] MEDS: traZODone HCL 50 MG TABLET (FP) PO SCH (21:23)
[2017-05-31] MEDS: THIAMINE HCL 100 MG TABLET (FP) PO SCH (21:23)
[2017-05-31] MEDS: SENNOSIDES 8.6MG TABLET (FP) PO SCH (21:23)
[2017-05-31] MEDS: metroNIDAZOLE 0.75% VAGINAL GEL 70 GM TUBE VG SCH (21:25)
[2017-06-01] MEDS: VITAMINS A AND D TOPICAL OINTMENT 60 GM TUBE TP SCH ×4 (00:15→18:20)
[2017-06-01] MEDS: FERROUS SO4 325 MG TABLET (FP) PO SCH ×3 (07:03→17:25)
[2017-06-01] MEDS: DULoxetine HCL 60 MG CAPSULE.DR PO SCH (09:51)
[2017-06-01] MEDS: PRENATAL VITAMINS W/ FOLIC ACID TABLET (FP) PO SCH (09:51)
[2017-06-01] MEDS: DOCUSATE SODIUM 100 MG CAPSULE (FP) PO SCH ×2 (09:52→21:26)
[2017-06-01] MEDS: NICOTINE 14 MG/24 HOURS TOPICAL PATCH TD SCH (09:52)
[2017-06-01] MEDS: COLLOIDAL OATMEAL 1 BAR EACH TP PRN (10:21)
[2017-06-01] MEDS: MAGNESIUM HYDROX 2400MG/30ML ORAL SUSPENSION 30 ML CUP PO PRN (12:36)
[2017-06-01] MEDS: THIAMINE HCL 100 MG TABLET (FP) PO SCH (21:25)
[2017-06-01] MEDS: MIRTAZAPINE 15 MG TABLET (FP) PO SCH (21:25)
[2017-06-01] MEDS: traZODone HCL 50 MG TABLET (FP) PO SCH (21:26)
[2017-06-01] MEDS: metroNIDAZOLE 0.75% VAGINAL GEL 70 GM TUBE VG SCH (21:28)
[2017-06-01] MEDS: SENNOSIDES 8.6MG TABLET (FP) PO SCH (21:28)
[2017-06-02] MEDS: VITAMINS A AND D TOPICAL OINTMENT 60 GM TUBE TP SCH ×4 (01:16→19:25)
[2017-06-02] MEDS: FERROUS SO4 325 MG TABLET (FP) PO SCH ×3 (07:01→16:45)
[2017-06-02] MEDS: PRENATAL VITAMINS W/ FOLIC ACID TABLET (FP) PO SCH (10:03)
[2017-06-02] MEDS: DOCUSATE SODIUM 100 MG CAPSULE (FP) PO SCH ×2 (10:03→21:14)
[2017-06-02] MEDS: DULoxetine HCL 60 MG CAPSULE.DR PO SCH (10:03)
[2017-06-02] MEDS: NICOTINE 14 MG/24 HOURS TOPICAL PATCH TD SCH (10:04)
[2017-06-02] MEDS ORDERED: PT OWN MED DRAWER 7, Y5N ONE ×2 (11:07→12:09)
[2017-06-02] MEDS: POLYETHYLENE GLYCOL 3350 119 GM BTL PO SCH (15:28)
[2017-06-02] MEDS: MIRTAZAPINE 15 MG TABLET (FP) PO SCH (21:13)
[2017-06-02] MEDS: THIAMINE HCL 100 MG TABLET (FP) PO SCH (21:13)
[2017-06-02] MEDS: SENNOSIDES 8.6MG TABLET (FP) PO SCH (21:14)
[2017-06-02] MEDS: traZODone HCL 50 MG TABLET (FP) PO SCH (21:14)
[2017-06-03] MEDS: VITAMINS A AND D TOPICAL OINTMENT 60 GM TUBE TP SCH ×4 (00:29→18:00)
[2017-06-03] MEDS: FERROUS SO4 325 MG TABLET (FP) PO SCH ×3 (07:17→17:00)
[2017-06-03] MEDS ORDERED: PT OWN MED DRAWER 7, Y5N ONE (08:40)
[2017-06-03] MEDS: DULoxetine HCL 60 MG CAPSULE.DR PO SCH (10:07)
[2017-06-03] MEDS: DOCUSATE SODIUM 100 MG CAPSULE (FP) PO SCH ×2 (10:07→21:19)
[2017-06-03] MEDS: NICOTINE 14 MG/24 HOURS TOPICAL PATCH TD SCH (10:08)
[2017-06-03] MEDS: POLYETHYLENE GLYCOL 3350 119 GM BTL PO SCH (10:08)
[2017-06-03] MEDS: PRENATAL VITAMINS W/ FOLIC ACID TABLET (FP) PO SCH (10:08)
[2017-06-03] MEDS: traZODone HCL 50 MG TABLET (FP) PO SCH (21:19)
[2017-06-03] MEDS: SENNOSIDES 8.6MG TABLET (FP) PO SCH (21:19)
[2017-06-03] MEDS: THIAMINE HCL 100 MG TABLET (FP) PO SCH (21:20)
[2017-06-03] MEDS: MIRTAZAPINE 15 MG TABLET (FP) PO SCH (21:20)
[2017-06-04] MEDS: VITAMINS A AND D TOPICAL OINTMENT 60 GM TUBE TP SCH ×4 (00:35→18:30)
[2017-06-04] MEDS: FERROUS SO4 325 MG TABLET (FP) PO SCH ×2 (07:17→17:30)
[2017-06-04] MEDS ORDERED: PT OWN MED DRAWER 7, Y5N ONE ×2 (08:47→19:50)
[2017-06-04] MEDS: DOCUSATE SODIUM 100 MG CAPSULE (FP) PO SCH ×2 (09:47→21:23)
[2017-06-04] MEDS: DULoxetine HCL 60 MG CAPSULE.DR PO SCH (09:47)
[2017-06-04] MEDS: PRENATAL VITAMINS W/ FOLIC ACID TABLET (FP) PO SCH (09:47)
[2017-06-04] MEDS: POLYETHYLENE GLYCOL 3350 119 GM BTL PO SCH (09:48)
[2017-06-04] MEDS: NICOTINE 14 MG/24 HOURS TOPICAL PATCH TD SCH (09:49)
[2017-06-04] MEDS: IBUPROFEN 400 MG TABLET (FP) PO PRN (11:15)
[2017-06-04] MEDS: MIRTAZAPINE 15 MG TABLET (FP) PO SCH (21:23)
[2017-06-04] MEDS: SENNOSIDES 8.6MG TABLET (FP) PO SCH (21:23)
[2017-06-04] MEDS: THIAMINE HCL 100 MG TABLET (FP) PO SCH (21:23)
[2017-06-04] MEDS: traZODone HCL 50 MG TABLET (FP) PO SCH (21:23)
[2017-06-05] MEDS: VITAMINS A AND D TOPICAL OINTMENT 60 GM TUBE TP SCH ×4 (00:13→17:15)
[2017-06-05] MEDS: FERROUS SO4 325 MG TABLET (FP) PO SCH ×2 (07:06→17:14)
[2017-06-05] MEDS: IBUPROFEN 400 MG TABLET (FP) PO PRN ×2 (09:17→14:47)
[2017-06-05] MEDS: DULoxetine HCL 60 MG CAPSULE.DR PO SCH (09:17)
[2017-06-05] MEDS: NICOTINE 14 MG/24 HOURS TOPICAL PATCH TD SCH (09:18)
[2017-06-05] MEDS: DOCUSATE SODIUM 100 MG CAPSULE (FP) PO SCH ×2 (09:18→21:28)
[2017-06-05] MEDS: PRENATAL VITAMINS W/ FOLIC ACID TABLET (FP) PO SCH (09:18)
[2017-06-05] MEDS: POLYETHYLENE GLYCOL 3350 119 GM BTL PO SCH (09:19)
[2017-06-05] MEDS: traZODone HCL 50 MG TABLET (FP) PO SCH (21:28)
[2017-06-05] MEDS: MIRTAZAPINE 15 MG TABLET (FP) PO SCH (21:28)
[2017-06-05] MEDS: THIAMINE HCL 100 MG TABLET (FP) PO SCH (21:28)
[2017-06-05] MEDS: SENNOSIDES 8.6MG TABLET (FP) PO SCH (21:29)
[2017-06-06] MEDS: VITAMINS A AND D TOPICAL OINTMENT 60 GM TUBE TP SCH ×4 (00:15→18:30)
[2017-06-06] MEDS: IBUPROFEN 400 MG TABLET (FP) PO PRN (05:09)
[2017-06-06] MEDS: COLLOIDAL OATMEAL 1 BAR EACH TP PRN (06:51)
[2017-06-06] MEDS: FERROUS SO4 325 MG TABLET (FP) PO SCH ×2 (07:12→17:30)
[2017-06-06] MEDS: DOCUSATE SODIUM 100 MG CAPSULE (FP) PO SCH ×2 (10:31→21:11)
[2017-06-06] MEDS: PRENATAL VITAMINS W/ FOLIC ACID TABLET (FP) PO SCH (10:32)
[2017-06-06] MEDS: DULoxetine HCL 60 MG CAPSULE.DR PO SCH (10:32)
[2017-06-06] MEDS: NICOTINE 14 MG/24 HOURS TOPICAL PATCH TD SCH (10:32)
[2017-06-06] MEDS: POLYETHYLENE GLYCOL 3350 119 GM BTL PO SCH (11:23)
[2017-06-06] MEDS: SENNOSIDES 8.6MG TABLET (FP) PO SCH (21:11)
[2017-06-06] MEDS: MIRTAZAPINE 15 MG TABLET (FP) PO SCH (21:11)
[2017-06-06] MEDS: THIAMINE HCL 100 MG TABLET (FP) PO SCH (21:11)
[2017-06-06] MEDS: traZODone HCL 50 MG TABLET (FP) PO SCH (21:11)
[2017-06-07] MEDS: VITAMINS A AND D TOPICAL OINTMENT 60 GM TUBE TP SCH ×5 (00:30→23:16)
[2017-06-07] MEDS ORDERED: PT OWN MED DRAWER 7, Y5N ONE (06:41)
[2017-06-07] MEDS: NICOTINE POLACRILEX 2 MG GUM BUC PRN (06:42)
[2017-06-07] MEDS: FERROUS SO4 325 MG TABLET (FP) PO SCH ×2 (07:04→16:49)
[2017-06-07] MEDS: PRENATAL VITAMINS W/ FOLIC ACID TABLET (FP) PO SCH (09:44)
[2017-06-07] MEDS: DULoxetine HCL 60 MG CAPSULE.DR PO SCH (09:44)
[2017-06-07] MEDS: DOCUSATE SODIUM 100 MG CAPSULE (FP) PO SCH ×2 (09:44→21:24)
[2017-06-07] MEDS: POLYETHYLENE GLYCOL 3350 119 GM BTL PO SCH (09:45)
[2017-06-07] MEDS: NICOTINE 14 MG/24 HOURS TOPICAL PATCH TD SCH (09:45)
[2017-06-07] MEDS: MIRTAZAPINE 15 MG TABLET (FP) PO SCH (21:22)
[2017-06-07] MEDS: traZODone HCL 50 MG TABLET (FP) PO SCH (21:23)
[2017-06-07] MEDS: SENNOSIDES 8.6MG TABLET (FP) PO SCH (21:23)
[2017-06-07] MEDS: THIAMINE HCL 100 MG TABLET (FP) PO SCH (21:23)
[2017-06-08] MEDS ORDERED: PT OWN MED DRAWER 7, Y5N ONE (06:26)
[2017-06-08] MEDS: FERROUS SO4 325 MG TABLET (FP) PO SCH ×3 (07:04→16:56)
[2017-06-08] MEDS: VITAMINS A AND D TOPICAL OINTMENT 60 GM TUBE TP SCH ×3 (07:04→17:25)
[2017-06-08] MEDS ORDERED: DULoxetine HCL 30 MG CAPSULE.DR (FP) PO ONE (08:09)
[2017-06-08] MEDS: DULoxetine HCL 60 MG CAPSULE.DR PO SCH (09:28)
[2017-06-08] MEDS: DOCUSATE SODIUM 100 MG CAPSULE (FP) PO SCH ×2 (09:28→21:01)
[2017-06-08] MEDS: PRENATAL VITAMINS W/ FOLIC ACID TABLET (FP) PO SCH (09:29)
[2017-06-08] MEDS: NICOTINE 14 MG/24 HOURS TOPICAL PATCH TD SCH (09:29)
[2017-06-08] MEDS: POLYETHYLENE GLYCOL 3350 119 GM BTL PO SCH (09:30)
[2017-06-08] MEDS: traZODone HCL 50 MG TABLET (FP) PO SCH (21:01)
[2017-06-08] MEDS: SENNOSIDES 8.6MG TABLET (FP) PO SCH (21:01)
[2017-06-08] MEDS: THIAMINE HCL 100 MG TABLET (FP) PO SCH (21:01)
[2017-06-08] MEDS: MIRTAZAPINE 15 MG TABLET (FP) PO SCH (21:02)
[2017-06-09] MEDS: VITAMINS A AND D TOPICAL OINTMENT 60 GM TUBE TP SCH ×4 (00:59→17:05)
[2017-06-09] MEDS ORDERED: DULoxetine HCL 30 MG CAPSULE.DR (FP) PO ONE (08:30)
[2017-06-09] MEDS: DULoxetine HCL 60 MG CAPSULE.DR PO SCH (10:18)
[2017-06-09] MEDS: FERROUS SO4 325 MG TABLET (FP) PO SCH ×2 (10:18→17:04)
[2017-06-09] MEDS: PRENATAL VITAMINS W/ FOLIC ACID TABLET (FP) PO SCH (10:18)
[2017-06-09] MEDS: DOCUSATE SODIUM 100 MG CAPSULE (FP) PO SCH ×2 (10:19→21:31)
[2017-06-09] MEDS: POLYETHYLENE GLYCOL 3350 119 GM BTL PO SCH (10:22)
[2017-06-09] MEDS: NICOTINE 14 MG/24 HOURS TOPICAL PATCH TD SCH (10:22)
[2017-06-09] MEDS ORDERED: PT OWN MED DRAWER 7, Y5N ONE ×3 (10:22→14:51)
--- NOTE | 2017-06-09 13:38 | PN ---
[facility] Progress Note (SOAP) Subjective: c/o vaginal discharge and irritation after metronidazole gel course, dizziness, rash on forhead, ears itchy Objective: 06/09/17 13:35 Vital Signs - 8 hr 06/09/17 06:54 Temperature 97.8 F Pulse Rate 79 Respiratory 18 Rate Blood Pressure 110/76 Laboratory Tests 05/26/17 05/27/17 05/27/17 22:43 08:30 08:30 WBC 8.6 RBC 4.41 Hgb 9.1 L D Hct 30.5 L MCV 69.3 L MCH 20.7 L MCHC 29.9 L RDW 21.4 H D Plt Count 340 MPV 7.2 L Hypersegmented Neuts Cancelled Hypochromia Cancelled Toxic Granulation Cancelled Dohle Bodies Cancelled Polychromasia Cancelled Poikilocytosis Cancelled Basophilic Stippling Cancelled Anisocytosis Cancelled Microcytosis Cancelled Macrocytosis Cancelled Spherocytes Cancelled Siderocytes Cancelled Sickle Cells Cancelled Target Cells Cancelled Tear Drop Cells Cancelled Ovalocytes Cancelled Stomatocytes Cancelled Helmet Cells Cancelled [place] Bodies Cancelled [place] Rings Cancelled [place] Cells Cancelled Acanthocytes (Spur) Cancelled Rouleaux Cancelled Fragmented RBCs Cancelled Schistocytes Cancelled Morphology Comment Cancelled Sodium Potassium Chloride Carbon Dioxide Anion Gap BUN Creatinine Creat Clearance w eGFR Random Glucose Calcium Total Bilirubin AST ALT Alkaline Phosphatase Total Protein Albumin Urine Color Lt. yellow Urine Appearance Clear Urine pH 5.5 D Ur Specific [place] >= 1.030 Urine Protein Negative Urine Glucose (UA) Negative Urine Ketones Negative Urine Blood Trace-inta Urine Nitrite Negative Urine Bilirubin Negative Urine Urobilinogen 0.2 Ur Leukocyte Esterase 1+ H Urine RBC 0-3 Urine WBC 3-5 Ur Epithelial Cells Few Urine Bacteria Few RPR Titer HIV 1&2 Antibody Screen Negative HIV P24 Antigen Negative 05/27/17 05/27/17 08:30 08:30 WBC RBC Hgb Hct MCV MCH MCHC RDW Plt Count MPV Hypersegmented Neuts Hypochromia Toxic Granulation Dohle Bodies Polychromasia Poikilocytosis Basophilic Stippling Anisocytosis Microcytosis Macrocytosis Spherocytes Siderocytes Sickle Cells Target Cells Tear Drop Cells Ovalocytes Stomatocytes Helmet Cells [place] Bodies [place] Rings [place] Cells Acanthocytes (Spur) Rouleaux Fragmented RBCs Schistocytes Morphology Comment Sodium 139 Potassium 4.0 Chloride 107 Carbon Dioxide 21 Anion Gap 11 BUN 14 D Creatinine 0.7 D Creat Clearance w eGFR > 60 Random Glucose 53 L D Calcium 8.3 L Total Bilirubin 0.2 D AST 15 D ALT 19 D Alkaline Phosphatase 81 Total Protein 7.2 Albumin 3.6 Urine Color Urine Appearance Urine pH Ur Specific [place] Urine Protein Urine Glucose (UA) Urine Ketones Urine Blood Urine Nitrite Urine Bilirubin Urine Urobilinogen Ur Leukocyte Esterase Urine RBC Urine WBC Ur Epithelial Cells Urine Bacteria RPR Titer Nonreactive HIV 1&2 Antibody Screen HIV P24 Antigen non specific rash on forehead, no excoriations or lesions, no discharge, good light reflex, no discharge membrane intact, slight redness r ear canal, throat without exudate afeb no ln Assessment: 06/09/17 13:37 1. rash - steroid cream 2. ear canal - slight erythem prn advil 3. vaginitis - oral diflucan and monistat topical
[2017-06-09] MEDS ORDERED: FLUCONAZOLE 50 MG TABLET PO ONE (13:59)
[2017-06-09] MEDS: MICONAZOLE NITRATE 14 GM/TUBE TUBE TP SCH ×2 (15:32→21:32)
[2017-06-09] MEDS: ACAMPROSATE CALCIUM 333 MG TABLET.DR PO SCH ×2 (17:04→21:32)
[2017-06-09] MEDS: THIAMINE HCL 100 MG TABLET (FP) PO SCH (21:31)
[2017-06-09] MEDS: traZODone HCL 50 MG TABLET (FP) PO SCH (21:31)
[2017-06-09] MEDS: MIRTAZAPINE 15 MG TABLET (FP) PO SCH (21:32)
[2017-06-09] MEDS: SENNOSIDES 8.6MG TABLET (FP) PO SCH (21:32)
[2017-06-10] MEDS: VITAMINS A AND D TOPICAL OINTMENT 60 GM TUBE TP SCH ×4 (00:15→17:20)
[2017-06-10] MEDS: ACAMPROSATE CALCIUM 333 MG TABLET.DR PO SCH ×3 (06:48→21:32)
[2017-06-10] MEDS: HYDROCORTISONE 0.5% TOPICAL CREAM 30 GM TUBE TP PRN (06:55)
[2017-06-10] MEDS: COLLOIDAL OATMEAL 1 BAR EACH TP PRN (06:57)
[2017-06-10] MEDS ORDERED: DULoxetine HCL 30 MG CAPSULE.DR (FP) PO ONE (08:39)
[2017-06-10] MEDS ORDERED: MICONAZOLE NITRATE 14 GM/TUBE TUBE TP SCH (10:04)
[2017-06-10] MEDS: FERROUS SO4 325 MG TABLET (FP) PO SCH ×3 (10:11→17:20)
[2017-06-10] MEDS: DOCUSATE SODIUM 100 MG CAPSULE (FP) PO SCH ×2 (10:11→21:32)
[2017-06-10] MEDS: DULoxetine HCL 60 MG CAPSULE.DR PO SCH (10:11)
[2017-06-10] MEDS: PRENATAL VITAMINS W/ FOLIC ACID TABLET (FP) PO SCH (10:11)
[2017-06-10] MEDS: POLYETHYLENE GLYCOL 3350 119 GM BTL PO SCH (10:12)
[2017-06-10] MEDS: NICOTINE 14 MG/24 HOURS TOPICAL PATCH TD SCH (10:13)
[2017-06-10] MEDS ORDERED: MICONAZOLE NITRATE 14 GM/TUBE TUBE TP ONE (10:33)
[2017-06-10] MEDS ORDERED: PT OWN MED DRAWER 7, Y5N ONE ×2 (10:56→18:02)
[2017-06-10] MEDS: MICONAZOLE NITRATE 14 GM/TUBE TUBE TP SCH ×2 (11:38→18:07)
[2017-06-10 15:17] LABS: MCH 20.8 pg (25.7-33.7); MCHC 29.4 g/dl (32.0-36.0); MEAN CELL VOLUME 70.7 fl (80-96); MEAN PLT VOLUME 7.8 fl (7.5-11.1); NEUTROPHILS 65.9 % (42.8-82.8); PLATELET COUNT 379 K/MM3 (134-434); RDW 22.7 % (11.6-15.6); WHITE BLOOD COUNT 6.9 K/mm3 (4.0-10.0)
[2017-06-10 16:00] LABS: ALBUMIN 3.5 g/dl (3.4-5.0); ANION GAP 8 (8-16); BILIRUBIN,TOTAL 0.4 mg/dL (0.2-1.0); CALCIUM 8.5 mg/dL (8.5-10.1); CO2 24 mmol/L (21-32); CREATININE 0.8 mg/dL (0.55-1.02); GLUCOSE,RANDOM 71 mg/dL (74-106); SGOT/AST 14 U/L (15-37); SGPT/ALT 24 U/L (12-78); TOT PROT 6.7 g/dl (6.4-8.2)
[2017-06-10 16:01] LABS: ALK PHOS 77 U/L (45-117)
[2017-06-10 18:27] LABS: HYPOCHROMIA 2+; POLYCHROMASIA RARE
[2017-06-10 18:28] LABS: ANISOCYTOSIS 2+; MACROCYTOSIS 1+; POIKILOCYTOSIS 1+; TARGET CELLS 1+
[2017-06-10] MEDS: THIAMINE HCL 100 MG TABLET (FP) PO SCH (21:32)
[2017-06-10] MEDS: SENNOSIDES 8.6MG TABLET (FP) PO SCH (21:33)
[2017-06-10] MEDS: MIRTAZAPINE 15 MG TABLET (FP) PO SCH (21:33)
[2017-06-10] MEDS: traZODone HCL 50 MG TABLET (FP) PO SCH (21:33)
[2017-06-11] MEDS: VITAMINS A AND D TOPICAL OINTMENT 60 GM TUBE TP SCH ×5 (00:50→23:20)
[2017-06-11] MEDS ORDERED: PT OWN MED DRAWER 7, Y5N ONE ×2 (03:26→08:35)
[2017-06-11] MEDS: ACAMPROSATE CALCIUM 333 MG TABLET.DR PO SCH ×3 (06:43→21:20)
[2017-06-11] MEDS: MICONAZOLE NITRATE 14 GM/TUBE TUBE TP SCH ×2 (06:44→18:05)
[2017-06-11] MEDS: FERROUS SO4 325 MG TABLET (FP) PO SCH ×4 (07:23→18:00)
[2017-06-11] MEDS: POLYETHYLENE GLYCOL 3350 119 GM BTL PO SCH (10:07)
[2017-06-11] MEDS: DULoxetine HCL 60 MG CAPSULE.DR PO SCH (10:08)
[2017-06-11] MEDS: DOCUSATE SODIUM 100 MG CAPSULE (FP) PO SCH ×2 (10:08→21:21)
[2017-06-11] MEDS: PRENATAL VITAMINS W/ FOLIC ACID TABLET (FP) PO SCH (10:08)
[2017-06-11] MEDS: NICOTINE 14 MG/24 HOURS TOPICAL PATCH TD SCH (10:09)
[2017-06-11] MEDS: THIAMINE HCL 100 MG TABLET (FP) PO SCH (21:18)
[2017-06-11] MEDS: SENNOSIDES 8.6MG TABLET (FP) PO SCH (21:19)
[2017-06-11] MEDS: MIRTAZAPINE 15 MG TABLET (FP) PO SCH (21:19)
[2017-06-11] MEDS: traZODone HCL 50 MG TABLET (FP) PO SCH (21:19)
[2017-06-12] MEDS: MICONAZOLE NITRATE 14 GM/TUBE TUBE TP SCH ×2 (07:30→18:20)
[2017-06-12] MEDS: ACAMPROSATE CALCIUM 333 MG TABLET.DR PO SCH ×3 (07:31→21:17)
[2017-06-12] MEDS: VITAMINS A AND D TOPICAL OINTMENT 60 GM TUBE TP SCH ×3 (07:31→18:20)
[2017-06-12] MEDS: FERROUS SO4 325 MG TABLET (FP) PO SCH ×3 (07:32→18:30)
[2017-06-12] MEDS ORDERED: PT OWN MED DRAWER 7, Y5N ONE ×3 (07:33→10:05)
[2017-06-12] MEDS: POLYETHYLENE GLYCOL 3350 119 GM BTL PO SCH (09:41)
[2017-06-12] MEDS: PRENATAL VITAMINS W/ FOLIC ACID TABLET (FP) PO SCH (09:42)
[2017-06-12] MEDS: DOCUSATE SODIUM 100 MG CAPSULE (FP) PO SCH ×2 (09:43→21:18)
[2017-06-12] MEDS: DULoxetine HCL 60 MG CAPSULE.DR PO SCH (09:43)
[2017-06-12] MEDS: NICOTINE 14 MG/24 HOURS TOPICAL PATCH TD SCH (09:43)
[2017-06-12] MEDS: SENNOSIDES 8.6MG TABLET (FP) PO SCH (21:17)
[2017-06-12] MEDS: THIAMINE HCL 100 MG TABLET (FP) PO SCH (21:19)
[2017-06-12] MEDS: MIRTAZAPINE 15 MG TABLET (FP) PO SCH (21:20)
[2017-06-12] MEDS: traZODone HCL 50 MG TABLET (FP) PO SCH (21:21)
[2017-06-13] MEDS: VITAMINS A AND D TOPICAL OINTMENT 60 GM TUBE TP SCH ×4 (00:19→17:57)
[2017-06-13] MEDS: ACAMPROSATE CALCIUM 333 MG TABLET.DR PO SCH ×3 (06:18→21:02)
[2017-06-13] MEDS: MICONAZOLE NITRATE 14 GM/TUBE TUBE TP SCH ×2 (06:19→17:57)
[2017-06-13] MEDS: FERROUS SO4 325 MG TABLET (FP) PO SCH ×3 (07:49→17:28)
[2017-06-13] MEDS ORDERED: PT OWN MED DRAWER 7, Y5N ONE ×2 (08:42→17:56)
[2017-06-13] MEDS: PRENATAL VITAMINS W/ FOLIC ACID TABLET (FP) PO SCH (10:00)
[2017-06-13] MEDS: DULoxetine HCL 60 MG CAPSULE.DR PO SCH (10:00)
[2017-06-13] MEDS: DOCUSATE SODIUM 100 MG CAPSULE (FP) PO SCH ×2 (10:01→21:02)
[2017-06-13] MEDS: NICOTINE 14 MG/24 HOURS TOPICAL PATCH TD SCH (10:02)
[2017-06-13] MEDS: POLYETHYLENE GLYCOL 3350 119 GM BTL PO SCH (10:02)
[2017-06-13] MEDS: HYDROCORTISONE 0.5% TOPICAL CREAM 30 GM TUBE TP PRN (10:03)
[2017-06-13] MEDS: THIAMINE HCL 100 MG TABLET (FP) PO SCH (21:02)
[2017-06-13] MEDS: SENNOSIDES 8.6MG TABLET (FP) PO SCH (21:02)
[2017-06-13] MEDS: MIRTAZAPINE 15 MG TABLET (FP) PO SCH (23:00)
[2017-06-13] MEDS: traZODone HCL 50 MG TABLET (FP) PO SCH (23:00)
[2017-06-14] MEDS: VITAMINS A AND D TOPICAL OINTMENT 60 GM TUBE TP SCH ×5 (00:20→23:05)
[2017-06-14] MEDS: ACAMPROSATE CALCIUM 333 MG TABLET.DR PO SCH ×3 (06:24→22:03)
[2017-06-14] MEDS: MICONAZOLE NITRATE 14 GM/TUBE TUBE TP SCH ×2 (06:25→18:03)
[2017-06-14] MEDS: FERROUS SO4 325 MG TABLET (FP) PO SCH ×3 (07:18→18:02)
[2017-06-14] MEDS ORDERED: PT OWN MED DRAWER 7, Y5N ONE (08:26)
[2017-06-14] MEDS: DULoxetine HCL 60 MG CAPSULE.DR PO SCH (09:43)
[2017-06-14] MEDS: POLYETHYLENE GLYCOL 3350 119 GM BTL PO SCH (09:43)
[2017-06-14] MEDS: PRENATAL VITAMINS W/ FOLIC ACID TABLET (FP) PO SCH (09:44)
[2017-06-14] MEDS: DOCUSATE SODIUM 100 MG CAPSULE (FP) PO SCH ×2 (09:44→22:03)
[2017-06-14] MEDS: NICOTINE 14 MG/24 HOURS TOPICAL PATCH TD SCH (09:44)
[2017-06-14] MEDS: traZODone HCL 50 MG TABLET (FP) PO SCH (22:03)
[2017-06-14] MEDS: THIAMINE HCL 100 MG TABLET (FP) PO SCH (22:04)
[2017-06-14] MEDS: SENNOSIDES 8.6MG TABLET (FP) PO SCH (22:04)
[2017-06-14] MEDS: MIRTAZAPINE 15 MG TABLET (FP) PO SCH (22:04)
[2017-06-14] MEDS: NICOTINE POLACRILEX 2 MG GUM BUC PRN (22:12)
[2017-06-14] MEDS: COLLOIDAL OATMEAL 1 BAR EACH TP PRN (22:12)
[2017-06-15] MEDS ORDERED: PT OWN MED DRAWER 7, Y5N ONE ×3 (05:51→16:22)
[2017-06-15] MEDS: ACAMPROSATE CALCIUM 333 MG TABLET.DR PO SCH ×3 (06:09→21:51)
[2017-06-15] MEDS: VITAMINS A AND D TOPICAL OINTMENT 60 GM TUBE TP SCH ×4 (06:10→23:03)
[2017-06-15] MEDS: MICONAZOLE NITRATE 14 GM/TUBE TUBE TP SCH ×2 (06:10→17:36)
[2017-06-15 07:14] VITALS: TEMP 97.8
[2017-06-15] MEDS: FERROUS SO4 325 MG TABLET (FP) PO SCH ×3 (07:48→17:35)
[2017-06-15] MEDS: PRENATAL VITAMINS W/ FOLIC ACID TABLET (FP) PO SCH (09:51)
[2017-06-15] MEDS: DOCUSATE SODIUM 100 MG CAPSULE (FP) PO SCH ×2 (09:51→21:50)
[2017-06-15] MEDS: DULoxetine HCL 60 MG CAPSULE.DR PO SCH (09:51)
[2017-06-15] MEDS: NICOTINE 14 MG/24 HOURS TOPICAL PATCH TD SCH (09:52)
[2017-06-15] MEDS: POLYETHYLENE GLYCOL 3350 119 GM BTL PO SCH (09:52)
--- NOTE | 2017-06-15 13:30 | PN ---
[facility] Progress Note Note: irritation in right eye,no discharge,no tearing,vision ok,no discharge,no trauma , artificial tear drop 1 gtt right eye tid,
[2017-06-15] MEDS: NICOTINE POLACRILEX 2 MG GUM BUC PRN (15:00)
[2017-06-15] MEDS: ARTIFICIAL TEARS (POLYVINYL ALCOHOL 1.4%) OPTH DROPS OD SCH ×2 (17:36→21:52)
[2017-06-15] MEDS: MAGNESIUM HYDROX 2400MG/30ML ORAL SUSPENSION 30 ML CUP PO PRN (17:38)
[2017-06-15] MEDS: THIAMINE HCL 100 MG TABLET (FP) PO SCH (21:50)
[2017-06-15] MEDS: traZODone HCL 50 MG TABLET (FP) PO SCH (21:51)
[2017-06-15] MEDS: SENNOSIDES 8.6MG TABLET (FP) PO SCH (21:51)
[2017-06-15] MEDS: MIRTAZAPINE 15 MG TABLET (FP) PO SCH (21:51)
[2017-06-16] MEDS: ACAMPROSATE CALCIUM 333 MG TABLET.DR PO SCH (06:41)
[2017-06-16] MEDS: ARTIFICIAL TEARS (POLYVINYL ALCOHOL 1.4%) OPTH DROPS OD SCH (06:41)
[2017-06-16] MEDS: MICONAZOLE NITRATE 14 GM/TUBE TUBE TP SCH (06:42)
[2017-06-16] MEDS: VITAMINS A AND D TOPICAL OINTMENT 60 GM TUBE TP SCH (06:42)
[2017-06-16 07:00] VITALS: BP 102/70; PULSE 98
[2017-06-16] MEDS: FERROUS SO4 325 MG TABLET (FP) PO SCH (07:38)
--- NOTE | 2017-06-16 09:00 | PN ---
Psychiatric Progress Note Vital Signs: Vital Signs Period Temp Pulse Resp BP Sys/Pathak Pulse Ox Last 24 Hr 97.8 F 98 18-18 102/70 Date of Session: 06/16/17 Chief Complaint:: Discharge visit HPI: Patient addressed Alcohol,Cocaine dependence comorbid with Bipolar II Disorder. ROS: Significant for H/O Gastic bypass. Current Medications: Active Medications Generic Name Dose Route Start Last Admin Trade Name Freq PRN Reason Stop Dose Admin Acamprosate 666 mg 06/09/17 17:00 06/16/17 06:41 Campral - PO 666 mg TID GISSELLE Administration Acetaminophen 650 mg 05/26/17 19:50 Tylenol - PO Q4H PRN PAIN Al Hydroxide/Mg Hydroxide 30 ml 05/26/17 19:50 Mylanta Oral Suspension - PO Q6H PRN DYSPEPSIA Artificial Tears 1 drop 06/15/17 14:00 06/16/17 06:41 Artificial Tears OD 1 drop TID GISSELLE Administration Colloidal Oatmeal 1 applic 05/30/17 10:58 06/14/17 22:12 Aveeno Soap - TP 1 applic DAILY PRN Administration HYGEINE Docusate Sodium 200 mg 05/29/17 22:00 06/15/17 21:50 Colace - PO 200 mg BID GISSELLE Administration Duloxetine HCl 60 mg 05/27/17 12:15 06/15/17 09:51 Cymbalta - PO 60 mg DAILY GISSELLE Administration Eucalyptus/Menthol/Phenol/Sorbitol 1 each 05/26/17 19:50 Cepastat Lozenge - MM Q4H PRN SORE THROAT Ferrous Sulfate 325 mg 06/10/17 15:45 06/16/17 07:38 Feosol - PO 325 mg TIDCM GISSELLE Administration Gabapentin 300 mg 05/28/17 14:02 05/28/17 21:19 Neurontin - PO 300 mg TID PRN Administration ANXIETY Guaifenesin 10 ml 05/26/17 19:50 Robitussin Dm - PO Q6H PRN COUGH Hydrocortisone 1 applic 06/09/17 13:39 06/13/17 10:03 Hytone 0.5% Cream - TP 1 applic DAILY PRN Administration FOR ITCHING Hydroxyzine Pamoate 50 mg 05/28/17 14:04 Vistaril - PO Q4H PRN ANXIETY Ibuprofen 400 mg 05/26/17 19:50 06/06/17 05:09 Motrin - PO 400 mg Q6H PRN Administration SEVERE PAIN Loperamide HCl 4 mg 05/26/17 19:50 Imodium - PO Q6H PRN DIARRHEA Magnesium Citrate 300 ml 05/26/17 19:50 06/02/17 21:16 Citroma - PO 300 ml Q2D PRN Administration CONSTIPATION Magnesium Hydroxide 30 ml 05/26/17 19:50 06/15/17 17:38 Milk Of Magnesia - PO 30 ml DAILY PRN Administration CONSTIPATION Miconazole Nitrate 1 applic 06/10/17 18:00 06/16/17 06:42 Monistat Topical Cream - TP Not Given BID@0600,1800 GISSELLE Mirtazapine 45 mg 05/27/17 22:00 06/15/17 21:51 Remeron - PO Not Given HS GISSELLE Nicotine 14 mg 05/27/17 10:00 06/15/17 09:52 Nicoderm Patch - TD 14 mg DAILY GISSELLE Administration Nicotine Polacrilex 2 mg 05/26/17 19:50 06/15/17 15:00 Nicorette Gum - BUC 2 mg Q2H PRN Administration NICOTINE REPLACEMENT RX Ondansetron HCl 8 mg 05/30/17 11:19 Zofran Odt - SL Q8H PRN NAUSEA AND/OR VOMITING Polyethylene Glycol 17 gm 06/02/17 13:02 06/15/17 09:52 Miralax (For Daily Use) - PO 17 gm DAILY GISSELLE Administration Multivit/Folic Acid/Iron 1 tab 05/27/17 10:00 06/15/17 09:51 Vitamins ([facility]) - PO 1 tab DAILY GISSELLE Administration Pseudoephedrine/Triprolidine 1 combo 05/26/17 19:50 Actifed - PO TID PRN NASAL CONGESTION Senna 2 tab 05/29/17 22:00 06/15/17 21:51 Senna - PO 2 tab HS GISSELLE Administration Thiamine HCl 100 mg 05/26/17 22:00 06/15/17 21:50 Vitamin B1 - PO 100 mg HS GISSELLE Administration Trazodone HCl 150 mg 05/28/17 22:00 06/15/17 21:51 Desyrel - PO Not Given HS GISSELLE Vitamin A/Vitamin D 1 applic 05/29/17 15:41 06/16/17 06:42 Vitamin A & D Top Oint - TP Not Given Q6HPO [facility] Current Side Effect: No Lab tests ordered: No Lab tests reviewed: Yes Provider note:: Patient completed this program today.She has met her treatment goals and will continue to address her issues on outpatient basis at [facility].PAtient reports finding that current medications: Campral 666 mg po tid,Trazodone 150 mg po hs,Remeron 45 mg po hs,Cymbalta 60 mg po daily and Neurontin 300 mg po tid help to cope with mood instability, depression,insomnia.Scripts provided. Supportive thherapy provided focusing on relapse prevention. Patient is stable for discharge today. Total face to face time:: 30 Mental Status Exam - Mental Status Exam Alert and Oriented to: Time, Place, Person Cognitive Function: Grossly Intact Patient Appearance: Well Groomed Mood: Hopeful, Euthymic Affect: Mood Congruent Patient Behavior: Appropriate, Cooperative Speech Pattern: Clear Voice Loudness: Normal Thought Process: Goal Oriented Thought Disorder: Not Present Hallucinations: Denies Suicidal Ideation: Denies Homicidal Ideation: Denies Insight/Judgement: Fair Sleep: Fair Appetite: Good Muscle strength/Tone: Normal Gait/Station: Normal Psychiatric Treatment Plan - Problem List (1) Nicotine dependence Qualifiers:
[2017-06-16] MEDS: PRENATAL VITAMINS W/ FOLIC ACID TABLET (FP) PO SCH (09:06)
[2017-06-16] MEDS: DOCUSATE SODIUM 100 MG CAPSULE (FP) PO SCH (09:06)
[2017-06-16] MEDS: DULoxetine HCL 60 MG CAPSULE.DR PO SCH (09:06)
[2017-06-16] MEDS: POLYETHYLENE GLYCOL 3350 119 GM BTL PO SCH (09:07)
[2017-06-16] MEDS: NICOTINE 14 MG/24 HOURS TOPICAL PATCH TD SCH (09:08)
== END 2017-06-16 09:13 | disposition home or self-care (01) | DRG 772 ==
LOC: YASAS 15:40 → Y3E 18:08
PROVIDERS: ADMIT Psychiatry & Neurology Psychiatry; ATTEND Psychiatry & Neurology Psychiatry
PROC: HZ42ZZZ Group Counseling for Substance Abuse Treatment, Cognitive-Behavioral (ICD-10-PCS; principal; 2017-05-26)
DX: F10.20 Alcohol dependence, uncomplicated (principal); F14.20 Cocaine dependence, uncomplicated; F17.210 Nicotine dependence, cigarettes, uncomplicated; F31.81 Bipolar II disorder; F34.1 Dysthymic disorder; D50.9 Iron deficiency anemia, unspecified; B37.3 Candidiasis of vulva and vagina; N76.0 Acute vaginitis; B96.89 Other specified bacterial agents as the cause of diseases classified elsewhere; R00.0 Tachycardia, unspecified; R21 Rash and other nonspecific skin eruption; R73.9 Hyperglycemia, unspecified; K59.01 Slow transit constipation; E66.9 Obesity, unspecified; Z68.30 Body mass index [BMI] 30.0-30.9, adult; Z87.09 Personal history of other diseases of the respiratory system; Z98.84 Bariatric surgery status; Z91.5 Personal history of self-harm
CPT/HCPCS: 36415; 80053; 81003; 81015; 85025; 85027; 86593; 87086; 87389; 93005; 93010

== ENCOUNTER 2017-06-24 09:53 | Emergency (ER) | payer OTHER ==
[2017-06-24 10:00] VITALS: TEMP 97.8; BMI 27.4
[2017-06-24] MEDS ORDERED: SODIUM CHLORIDE 1,000 ML IV STA (10:10)
[2017-06-24] MEDS ORDERED: KETOROLAC TROMETHAMINE 30 MG/1 ML VIAL IVPUSH ONE (10:11)
[2017-06-24] MEDS ORDERED: KETOROLAC TROMETHAMINE 30 MG/1 ML VIAL ONE (10:16)
--- NOTE | 2017-06-24 10:16 | PDOC ---
History of Present Illness - General Chief Complaint: Lightheaded Stated Complaint: FALL, LIGHTHEADED Time Seen by Provider: 06/24/17 10:04 History Source: Patient - History of Present Illness Timing/Duration: other (yesterday) Associated Symptoms: reports: chest pain. denies: cough, headaches, nausea/ vomiting, shortness of breath Past History - Past Medical History Allergies/Adverse Reactions: Allergies Allergy/AdvReac Type Severity Reaction Status Date / Time No Known Allergies Allergy Verified 06/24/17 09:54 Home Medications: Ambulatory Orders Duloxetine HCl [Cymbalta -] 60 mg PO DAILY 05/26/17 Gabapentin [Neurontin -] 300 mg PO Q8H 05/26/17 Mirtazapine [Remeron -] 45 mg PO HS 05/26/17 Trazodone HCl [Desyrel -] 150 mg PO HS 05/26/17 Duloxetine HCl [Cymbalta -] 60 mg PO DAILY #30 capsule. 06/13/17 Gabapentin [Neurontin -] 300 mg PO TID PRN #90 capsule 06/13/17 Mirtazapine [Remeron -] 45 mg PO HS #90 tablet 06/13/17 Trazodone HCl [Desyrel -] 150 mg PO HS #90 tablet 06/13/17 Ibuprofen [Motrin -] 600 mg PO QID #28 tablet 06/24/17 Nitrofurantoin Monohyd/M-Cryst [Macrobid -] 100 mg PO BID #14 capsule 06/24/17 Anemia: Yes Asthma: No Cancer: No Cardiac Disorders: No CVA: No COPD: No CHF: No Dementia: No Diabetes: No GI Disorders: No Disorders: No HTN: No Hypercholesterolemia: No Kidney Stones: No Liver Disease: No Psychiatric Problems: Yes (depression, anxiety) Seizures: No Thyroid Disease: No - Surgical History Abdominal Surgery: Yes (gastric bypass 2002) Appendectomy: No Cardiac Surgery: No Cholecystectomy: No Lung Surgery: No Neurologic Surgery: No Orthopedic Surgery: No - Reproductive History PID: No - Immunization History Immunization Up to Date: Yes - Suicide/Smoking/Psychosocial Hx Smoking Status: Yes Smoking History: Current every day smoker Have you smoked in the past 12 months: Yes Number of Cigarettes Smoked Daily: 6 Cigars Per Day: 0 Information on smoking cessation initiated: Yes 'Breaking Loose' booklet given: 06/24/17 Hx Alcohol Use: No Drug/Substance Use Hx: No Substance Use Type: Alcohol, Cocaine, Heroin Hx Substance Use Treatment: Yes (completed inpatient rehabilitation about 5 yo, longest abstinence 9 monhts) Review of Systems - Review of Systems Constitutional: No: Chills, Fever Respiratory: No: Cough, Shortness of Breath Cardiac (ROS): Yes: Chest Pain, Lightheadedness. No: Palpitations, Syncope Neurological: Yes: Dizziness. No: Headache *Physical Exam - Vital Signs Last Vital Signs Temp Pulse Resp BP Pulse Ox 97.8 F 82 18 104/63 100 06/24/17 09:54 06/24/17 09:54 06/24/17 09:54 06/24/17 09:54 06/24/17 09:54 - Physical Exam General Appearance: Yes: Appropriately Dressed. No: Apparent Distress HEENT: positive: Normal Voice Neck: positive: Supple Respiratory/Chest: positive: Chest Tender (to R mid chest in MAL, no crepitus or step offs), Lungs Clear, Normal Breath Sounds. negative: Respiratory Distress Cardiovascular: positive: Regular Rate, S1, S2 Gastrointestinal/Abdominal: positive: Soft. negative: Tender Integumentary: positive: Dry, Warm Neurologic: positive: Fully Oriented, Alert, Motor Strength / ED Treatment Course - LABORATORY CBC & Chemistry Diagram: 06/24/17 10:25 06/24/17 10:25 - RADIOLOGY Radiology Studies Ordered: Category Date Time Status RIBS BILATERAL [RAD] Stat Radiology 06/24/17 10:10 Ordered Medical Decision Making - Medical Decision Making 06/24/17 10:11 41-year-old female, history of bipolar disorder, anxiety, polysubstance abuse, here with right chest wall pain status post fall. Patient states approximately 1 PM yesterday while descending steps, she became lightheaded and fell, hitting right chest into banister. Denies hitting head or loss of consciousness. States she stayed all day in bed yesterday due to right chest wall pain. No headache, visual changes, nausea, vomiting or shortness of breath. States she is anemic and has been transfused in the past and worried that her dizziness could be secondary to her anemia as she has had similar dizziness in the past. States last time used ETOH or cocaine was 2 weeks ago See exam Fall in setting of dizziness yesterday Denies hitting head, not on blood thinners Unlikely ACS or CVA Reports transfusions for anemia in past +R chest wall injury -pain control -rib series -ekg -labs 06/24/17 10:15 06/24/17 12:58 Labs unremarkable. There are non-displaced fractures of the right ninth and 10th ribs on x-ray. Pt well-appearing, ambulating throughout ED and tolerating po. Reports no dizziness at this time. Pt now reports that she has had dizziness for over a month, describes as the room spinning and usually when getting up too quickly from a sitting position. For unclear reasons, has not seen her primary doctor. Patient evaluated by Dr. Herrera and plan is to discharge and have patient follow up with neurologist. Patient also complaining of possible dysuria today. No flank pain, hematuria, nausea, vomiting, fever or chills. UA unremarkable. Ucx sent. Will consider treating 06/24/17 13:29 *DC/Admit/Observation/Transfer Diagnosis at time of Disposition: Dizziness Rib fractures Qualifiers: Encounter type: initial encounter Rib fracture type: multiple ribs Fracture type: closed Laterality: right Qualified Code(s): S22.41XA - Multiple fractures of ribs, right side, initial encounter for closed fracture - Discharge Dispostion Disposition: HOME Condition at time of disposition: Improved - Prescriptions Prescriptions: Ibuprofen [Motrin -] 600 mg PO QID #28 tablet Nitrofurantoin Monohyd/M-Cryst [Macrobid -] 100 mg PO BID #14 capsule - Referrals Referrals: Betito Coy MD [Primary Care Provider] - Jose Garcia MD [Staff Physician] - - Patient Instructions Printed Discharge Instructions: DI for Rib Fracture Additional Instructions: For your dizziness, please follow-up with Dr. Garcia. Also follow-up with your PMD. If symptoms worsen, return to ER - Post Discharge Activity Forms/Work/School Notes: Back to Work
[2017-06-24 10:56] LABS: URINE APPEARANCE CLEAR; URINE BILIRUBIN NEGATIVE (NEGATIVE); URINE BLOOD NEGATIVE (NEGATIVE); URINE COLOR LTYELLOW; URINE GLUCOSE (UA) NEGATIVE (NEGATIVE); URINE KETONE NEGATIVE (NEGATIVE); URINE NITRITE NEGATIVE (NEGATIVE); URINE PROTEIN NEGATIVE (NEGATIVE); URINE UROBILINOGEN NEGATIVE mg/dL (0.2-1.0)
[2017-06-24 10:58] LABS: BASOPHIL 0.8 % (0-2.0); EOSINOPHIL 2.1 % (0-4.5); MCH 21.2 pg (25.7-33.7); MCHC 29.8 g/dl (32.0-36.0); MEAN CELL VOLUME 71.1 fl (80-96); NEUTROPHILS 70.9 % (42.8-82.8); PLATELET COUNT 232 K/MM3 (134-434); RDW 22.3 % (11.6-15.6); WHITE BLOOD COUNT 7.8 K/mm3 (4.0-10.0)
[2017-06-24 11:18] LABS: URINE MARIJUANA THC NEGATIVE ng/ml (CUTOFF=50)
[2017-06-24 11:23] LABS: ALBUMIN 3.2 g/dl (3.4-5.0); ANION GAP 10 (8-16); CALCIUM 8.5 mg/dL (8.5-10.1); CO2 23 mmol/L (21-32); CREATININE 0.6 mg/dL (0.55-1.02); GLUCOSE,RANDOM 88 mg/dL (74-106); SGOT/AST 37 U/L (15-37); SGPT/ALT 41 U/L (12-78)
[2017-06-24 11:25] LABS: ALK PHOS 85 U/L (45-117); BILIRUBIN,TOTAL 0.4 mg/dL (0.2-1.0); TOT PROT 6.6 g/dl (6.4-8.2)
[2017-06-24] MEDS ORDERED: ACETAMINOPHEN 325 MG TABLET (FP) PO ONE (11:30)
[2017-06-24] MEDS ORDERED: LORazepam 1 MG TABLET PO ONE (11:30)
[2017-06-24] MEDS ORDERED: ACETAMINOPHEN 325 MG TABLET (FP) ONE (11:35)
[2017-06-24] MEDS ORDERED: LORazepam 0.5 MG TABLET ONE (11:35)
[2017-06-24 12:07] LABS: ANISOCYTOSIS 2+; HYPOCHROMIA 2+; MACROCYTOSIS 1+; MICROCYTOSIS 1+
[2017-06-24] MEDS ORDERED: traMADol HCL 50 MG TABLET PO ONE (13:15)
[2017-06-24] MEDS ORDERED: traMADol HCL 50 MG TABLET ONE (13:24)
[2017-06-24 13:48] VITALS: BP 110/72; PULSE 78
[2017-06-24 17:21] LABS: URINE LEUK ESTERASE Negative (NEGATIVE)
--- NOTE | 2017-06-25 07:40 | EKG ---
Test Reason : Blood Pressure : / mmHG Vent. Rate : 068 BPM Atrial Rate : 068 BPM P-R Int : 136 ms QRS Dur : 082 ms QT Int : 432 ms P-R-T Axes : 060 052 047 degrees QTc Int : 459 ms NORMAL SINUS RHYTHM LOW VOLTAGE QRS BORDERLINE ECG WHEN COMPARED WITH ECG OF 27-MAY-2017 00:55, NO SIGNIFICANT CHANGE WAS FOUND Confirmed by Maral Lakhani ([id number]) on 06/24/2017 2:28:49 PM Also confirmed by MD Lakhani Daniel ([id number]), film editor MARAL GILLESPIE ([id number]) on 06/25/2017 7:39:54 AM Referred By: Confirmed By:Maral Lakhani MD
== END 2017-06-24 14:00 | disposition home or self-care (01) ==
LOC: JER 09:53
PROC: 3E0333Z Introduction of Anti-inflammatory into Peripheral Vein, Percutaneous Approach (ICD-10-PCS; principal; 2017-06-24)
PROC: 3E0337Z Introduction of Electrolytic and Water Balance Substance into Peripheral Vein, Percutaneous Approach (ICD-10-PCS; 2017-06-24)
DX: R42 Dizziness and giddiness (principal); S22.41XA Multiple fractures of ribs, right side, initial encounter for closed fracture; W18.39XA Other fall on same level, initial encounter; Y93.9 Activity, unspecified; Y92.9 Unspecified place or not applicable; Z98.84 Bariatric surgery status; F41.8 Other specified anxiety disorders; F17.210 Nicotine dependence, cigarettes, uncomplicated
CPT/HCPCS: 36415; 71111-TC; 80053; 80307; 81003; 84703; 85025; 93005; 93010; 96361; 96374; 99282-25

== ENCOUNTER 2017-10-13 12:06 | Inpatient (IN) | payer OTHER ==
[2017-10-13 13:15] VITALS: BMI 31.8
--- NOTE | 2017-10-13 16:37 | HP ---
CIWA Score - CIWA Score Nausea/Vomitin-No Nausea/No Vomiting Muscle Tremors: 1-None Visible, but [place] Anxiety: 3 Agitation: 1-Slight > Activity Paroxysmal Sweats: 2 Orientation: 0-Oriented Tacttile Disturbances: 2-Mild Itch/Numbness/Burn (reports generalize itch overher body) Auditory Disturbances: 2-Mild Harshness/Frighten Visual Disturbances: 1-Very Mild Sensitivity Headache: 0-None Present CIWA-Ar Total Score: 12 Admission [facility] - HPI Chief Complaint: alcohol withdrawal symptoms Allergies/Adverse Reactions: Allergies Allergy/AdvReac Type Severity Reaction Status Date / Time No Known Allergies Allergy Verified 10/13/17 16:14 History of Present Illness: Patient is 42 yo female nicotine and alcohol dependence is here seeking detox. Currently smokes 1 pack of cigarettes per day. PMHX: depression, anxiety, insomnia, bipolar d/o, and constipation. Denies suicidal / homicidal ideation or suicide attempts. Last rehab at [facility] May 2017. Longest period of 2.5 weeks. Denies any hx of seizures related to alcohol, reports blackouts when drinking. Patient currently has no after care plans. Exam Limitations: No Limitations - Ebola screening Have you traveled outside of the country in the last 21 days: No Have you had contact with anyone from an Ebola affected area: No Have you been sick,other than usual withdrawal symptoms: No Do you have a fever: No - Review of Systems Constitutional: Chills, Loss of Appetite, Unexplained wgt Loss EENT: reports: Throat Pain (reports throat pain due to frequent engament in oral sex) Respiratory: reports: No Symptoms reported Cardiac: reports: Syncope (last episode 2 months ago) GI: reports: Constipated, Nausea, Poor Appetite, Poor Fluid Intake : reports: Burning, Discharge (reports cottage cheese discharge with vaginal itch) Musculoskeletal: reports: Back Pain Integumentary: reports: No Symptoms Reported Neuro: reports: Weakness Endocrine: reports: Excessive Sweating Hematology: reports: Anemia Psychiatric: reports: Orientated x3, Agitated, Depressed Other Systems: Reviewed and Negative Patient History - Patient Medical History Hx Anemia: Yes Hx Asthma: Yes (Pt states she has asthma but does not use MDI.) Hx Chronic Obstructive Pulmonary Disease (COPD): No Hx Cancer: No Hx Cardiac Disorders: No Hx Congestive Heart Failure: No Hx Hypertension: No Hx Hypercholesterolemia: No Hx Pacemaker: No HX Cerebrovascular Accident: No Hx Seizures: No Hx Dementia: No Hx Diabetes: No Hx Gastrointestinal Disorders: No Hx Liver Disease: No Hx Genitourinary Disorders: No Hx Sexually Transmitted Disorders: No Hx Renal Disease (ESRD): No Hx Thyroid Disease: No Hx Human Immunodeficiency Virus (HIV): No (reports last tested May 2017) Hx Hepatitis C: No Hx Depression: Yes Hx Suicide Attempt: No Hx Bipolar Disorder: Yes Hx Schizophrenia: No Other Medical History: reports hx of Hep B - Patient Surgical History Past Surgical History: Yes Hx Neurologic Surgery: No Hx Cataract Extraction: No Hx Cardiac Surgery: No Hx Lung Surgery: No Hx Breast Surgery: No Hx Breast Biopsy: No Hx Abdominal Surgery: Yes (gastric bypass 2002) Hx Appendectomy: No Hx Cholecystectomy: No Hx Genitourinary Surgery: No Hx Section: Yes (2x ) Hx Orthopedic Surgery: No Hx Hysterectomy: No Other Surgical History: Gastric bypass in 2002,surgery for carpel tunnel left wrist Anesthesia Reaction: No - PPD History Previous Implant?: Yes Documented Results: Negative w/proof Implanted On Prior [facility] Admission?: Yes Date: 05/28/17 Results: 0 MM PPD to be Administered?: No - Reproductive History Patient is a Female of Child Bearing Age (11 -55 yrs old): Yes Last Menstrual Period: 08/23/17 Patient : No - Smoking Cessation Smoking history: Current every day smoker Have you smoked in the past 12 months: Yes Aproximately how many cigarettes per day: 20 Cigars Per Day: 0 Hx Chewing Tobacco Use: No Initiated information on smoking cessation: Yes 'Breaking Loose' booklet given: 10/13/17 - Substance & Tx. History Hx Alcohol Use: Yes Hx Substance Use: Yes Substance Use Type: Alcohol Hx Substance Use Treatment: Yes ([facility] May 2017) - Substances Abused Alcohol Route: Oral Frequency: Daily Amount used: 1 PINT IVONNE Age of first use: 28 Date of Last Use: 10/13/17 Family Disease History - Family Disease History Family Disease History: [place]: Father (), Other: Father Admission Physical Exam BHS - Vital Signs Vital Signs: Vital Signs - 24 hr 10/13/17 13:11 Temperature 97.1 F L Pulse Rate 126 H Respiratory 20 Rate Blood Pressure 137/77 - Physical General Appearance: Yes: Disheveled, Alcohol on Breath, Irritable, Anxious HEENTM: Yes: EOMI, Hearing grossly Normal, Normal ENT Inspection, Normocephalic , Pharynx Normal, Tm's normal Respiratory: Yes: Chest Non-Tender, Lungs Clear, Normal Breath Sounds, No Respiratory Distress, No Accessory Muscle Use Neck: Yes: No masses,lesions,Nodules, Trachea in good position Breast: Yes: Breast Exam Deferred Cardiology: Yes: Regular Rhythm, Regular Rate Abdominal: Yes: Normal Bowel Sounds, Non Tender, Soft, Protuberent Genitourinary: Yes: Burning Back: Yes: Muscle Spasm Musculoskeletal: Yes: full range of Motion, Gait Steady, Back pain Extremities: Yes: Normal Capillary Refill, Normal Inspection, Normal Range of Motion, Non-Tender Neurological: Yes: superintendent marine II-XII NML intact, Fully Oriented, Alert, Motor Strength 5/5, Depressed Affect (patient was tearful during assesment) Integumentary: Yes: Normal Color, Warm, Moist Lymphatic: Yes: Within Normal Limits - Addiitonal Findings: [employer] : Reference #: [id number] . Patient reports take oxycodone for chronic pain prescribed by Bhanu Greenwoody 90 tabs , utox negative for oxy. - Diagnostic (1) Depressed mood Current Visit: Yes Status: Acute (2) Alcohol dependence with uncomplicated withdrawal Current Visit: Yes Status: Acute (3) Iron deficiency anemia Current Visit: Yes Status: Chronic Qualifiers: Iron deficiency anemia type: unspecified iron deficiency Qualified Code(s) : D50.9 - Iron deficiency anemia, unspecified (4) Lower back pain Current Visit: Yes Status: Chronic Qualifiers: Chronicity: chronic Sciatica presence: with sciatica (5) Constipation Current Visit: Yes Status: Chronic Qualifiers: Constipation type: slow transit constipation Qualified Code(s): K59.01 - Slow transit constipation (6) Difficulty sleeping Current Visit: Yes Status: Acute Cleared for Admission [facility] - Detox or Rehab [facility] Level of Care: Medically Managed Detox Regimen/Protocol: Librium [facility] Breath Alcohol Content Breath Alcohol Content: 0.261 Urine Pregancy Test - Result Urine Test Results: Negative- NO Line Present Urine Drug Screen - Results Drug Screen Negative: Yes
[2017-10-13] MEDS ORDERED: LOPERAMIDE HCL 2 MG CAPSULE PO PRN (16:47)
[2017-10-13] MEDS ORDERED: MAG HYDROX/AL HYDROX/SIMETH 30 ML UNIT-DOSE CUP PO PRN (16:47)
[2017-10-13] MEDS ORDERED: MAGNESIUM HYDROX 2400MG/30ML ORAL SUSPENSION 30 ML CUP PO PRN (16:47)
[2017-10-13] MEDS ORDERED: P-EPHED 60MG/TRIPROLIDI 2.5MG TABLET PO PRN (16:47)
[2017-10-13] MEDS ORDERED: ACETAMINOPHEN 325 MG TABLET (FP) PO PRN (16:47)
[2017-10-13] MEDS ORDERED: IBUPROFEN 400 MG TABLET (FP) PO PRN (16:47)
[2017-10-13] MEDS ORDERED: diazePAM 5 MG TABLET PO PRN (16:47)
[2017-10-13] MEDS ORDERED: guaiFENesin/D-METHORPHAN HB 10 ML UNIT-DOSE CUPS PO PRN (16:47)
[2017-10-13] MEDS ORDERED: hydrOXYzine PAMOATE 50 MG CAPSULE (FP) PO PRN (16:47)
[2017-10-13] MEDS ORDERED: NICOTINE POLACRILEX 2 MG GUM BC PRN (16:47)
[2017-10-13] MEDS ORDERED: MENTHOL/PHENOL 1 EACH UD MM PRN (16:47)
[2017-10-13] MEDS ORDERED: MAGNESIUM CITRATE 300 ML BOTTLE PO PRN (16:47)
[2017-10-13] MEDS ORDERED: diazePAM 5 MG TABLET PO ONE (18:15)
[2017-10-13] MEDS ORDERED: chlordiazePOXIDE HCL 25 MG CAPSULE PO ONE (18:38)
--- NOTE | 2017-10-13 20:22 | PN ---
S Progress Note Note: Patient with abnormal EKG : Sinus tachy rate 107, patient symptomatic Vital Signs Period Temp Pulse Resp BP Sys/Pathak Pulse Ox Last 24 Hr 97.1 F-98.4 F 107-126 18-20 102-137/68-77 Lab pending Plan: Increase fluids Continue detox Continue to monitor repeat EKG
[2017-10-13] MEDS ORDERED: diazePAM 5 MG TABLET PO SCH (22:00)
[2017-10-13] MEDS ORDERED: MELATONIN 5 MG TABLETS PO PRN (22:00)
[2017-10-13] MEDS: THIAMINE HCL 100 MG TABLET (FP) PO SCH (22:09)
[2017-10-13] MEDS: chlordiazePOXIDE HCL 25 MG CAPSULE PO SCH (22:09)
[2017-10-14 02:04] LABS: URINE APPEARANCE CLOUDY; URINE BILIRUBIN NEGATIVE (<2.0 mg/dL); URINE BLOOD NEGATIVE (NEGATIVE); URINE COLOR YELLOW; URINE GLUCOSE (UA) NEGATIVE (NEGATIVE); URINE KETONE NEGATIVE (NEGATIVE); URINE LEUK ESTERASE TRACE (NEGATIVE); URINE NITRITE NEGATIVE (NEGATIVE); URINE PROTEIN NEGATIVE (NEGATIVE); URINE UROBILINOGEN NEGATIVE mg/dL (0.2-1.0)
[2017-10-14 03:16] LABS: EPI CELLS MANY /HPF (FEW)
[2017-10-14 03:17] LABS: URINE BACTERIA MODERATE /hpf (NONE SEEN)
[2017-10-14] MEDS: chlordiazePOXIDE HCL 25 MG CAPSULE PO SCH ×4 (05:55→22:12)
[2017-10-14] MEDS: chlordiazePOXIDE HCL 25 MG CAPSULE PO PRN ×3 (07:52→21:16)
--- NOTE | 2017-10-14 08:56 | PN ---
S CIWA - CIWA Score Nausea/Vomitin-No Nausea/No Vomiting Muscle Tremors: 4-Moderate,w/Arms Extend Anxiety: 3 Agitation: 3 Paroxysmal Sweats: 1-Minimal Palms Moist Orientation: 0-Oriented Tacttile Disturbances: 0-None Auditory Disturbances: 0-None Visual Disturbances: 0-None Headache: 0-None Present CIWA-Ar Total Score: 11 BHS Progress Note (SOAP) Subjective: sweat tremor anxiety restlessness sleeplessness Objective: 10/14/17 08:55 Vital Signs Temperature 98.1 F 10/14/17 06:28 Pulse Rate 90 10/14/17 07:29 Respiratory Rate 18 10/14/17 07:29 Blood Pressure 113/64 10/14/17 06:28 O2 Sat by Pulse Oximetry (%) Laboratory Last Values Urine Color Yellow 10/13/17 22:00 Urine Appearance Cloudy 10/13/17 22:00 Urine pH 5.0 (5.0-8.0) D 10/13/17 22:00 Ur Specific [place] 1.012 (1.001-1.035) 10/13/17 22:00 Urine Protein Negative (NEGATIVE) 10/13/17 22:00 Urine Glucose (UA) Negative (NEGATIVE) 10/13/17 22:00 Urine Ketones Negative (NEGATIVE) 10/13/17 22:00 Urine Blood Negative (NEGATIVE) 10/13/17 22:00 Urine Nitrite Negative (NEGATIVE) 10/13/17 22:00 Urine Bilirubin Negative (<2.0 mg/dL) 10/13/17 22:00 Urine Urobilinogen Negative mg/dL (0.2-1.0) 10/13/17 22:00 Ur Leukocyte Esterase Trace (NEGATIVE) 10/13/17 22:00 Urine WBC (Auto) 10-15 /hpf (3-5) 10/13/17 22:00 Urine RBC (Auto) None /hpf (0-3) 10/13/17 22:00 Ur Epithelial Cells Many /HPF (FEW) 10/13/17 22:00 Urine Bacteria Moderate /hpf (NONE SEEN) 10/13/17 22:00 lab noted repeat ua Assessment: 10/14/17 08:56 withdrawal sx Plan: continue detox
[2017-10-14 10:00] LABS: HEMATOCRIT 30.9 % (32.4-45.2); HEMOGLOBIN 9.1 GM/dL (10.7-15.3); MCH 20.2 pg (25.7-33.7); MCHC 29.5 g/dl (32.0-36.0); MEAN CELL VOLUME 68.5 fl (80-96); MEAN PLT VOLUME 7.5 fl (7.5-11.1); PLATELET COUNT 344 K/MM3 (134-434); RBC 4.51 M/mm3 (3.60-5.2); RDW 21.3 % (11.6-15.6); WHITE BLOOD COUNT 10.5 K/mm3 (4.0-10.0)
[2017-10-14] MEDS ORDERED: GABAPENTIN 300 MG CAPSULE (FP) PO SCH (10:00)
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
[2017-10-14 10:19] LABS: ALBUMIN 3.8 g/dl (3.4-5.0); ALK PHOS 80 U/L (45-117); ANION GAP 11 (8-16); BILIRUBIN,TOTAL 0.3 mg/dL (0.2-1.0); BLOOD UREA NITROGEN 9 mg/dL (7-18); CALCIUM 8.1 mg/dL (8.5-10.1); CHLORIDE 108 mmol/L (98-107); CO2 21 mmol/L (21-32); CREATININE 0.8 mg/dL (0.55-1.02); GLUCOSE,RANDOM 133 mg/dL (74-106); POTASSIUM 3.3 mmol/L (3.5-5.1); SGOT/AST 14 U/L (15-37); SGPT/ALT 22 U/L (12-78); SODIUM 140 mmol/L (136-145); TOT PROT 7.5 g/dl (6.4-8.2)
[2017-10-14] MEDS: PRENATAL VITAMINS W/ FOLIC ACID TABLET (FP) PO SCH (10:32)
[2017-10-14] MEDS: DULoxetine HCL 20 MG CAPSULE.DR (FP) PO SCH (10:33)
[2017-10-14] MEDS: NICOTINE 14 MG/24 HOURS TOPICAL PATCH TD SCH (10:34)
[2017-10-14] MEDS: GABAPENTIN 300 MG CAPSULE (FP) PO SCH ×2 (13:29→22:13)
--- NOTE | 2017-10-14 16:44 | EKG ---
Test Reason : Blood Pressure : / mmHG Vent. Rate : 092 BPM Atrial Rate : 092 BPM P-R Int : 130 ms QRS Dur : 082 ms QT Int : 368 ms P-R-T Axes : 063 056 049 degrees QTc Int : 455 ms NORMAL SINUS RHYTHM NORMAL ECG WHEN COMPARED WITH ECG OF 13-OCT-2017 17:39, NO SIGNIFICANT CHANGE WAS FOUND Confirmed by MD Aguilera Edward ([id number]) on 10/14/2017 4:44:03 PM Referred By: Confirmed By:John Aguilera MD
--- NOTE | 2017-10-14 16:50 | EKG ---
Test Reason : Blood Pressure : / mmHG Vent. Rate : 107 BPM Atrial Rate : 107 BPM P-R Int : 136 ms QRS Dur : 084 ms QT Int : 348 ms P-R-T Axes : 076 055 057 degrees QTc Int : 464 ms SINUS TACHYCARDIA OTHERWISE NORMAL ECG WHEN COMPARED WITH ECG OF 24-JUN-2017 10:54, VENT. RATE HAS INCREASED BY 39 BPM Confirmed by MD Ale, John ([id number]) on 10/14/2017 4:49:57 PM Referred By: Confirmed By:John Aguilera MD
[2017-10-14] MEDS ORDERED: traZODone HCL 100 MG TABLET (FP) PO SCH (22:00)
[2017-10-14] MEDS: MIRTAZAPINE 15 MG TABLET (FP) PO SCH (22:12)
[2017-10-14] MEDS: THIAMINE HCL 100 MG TABLET (FP) PO SCH (22:12)
[2017-10-15] MEDS: chlordiazePOXIDE HCL 25 MG CAPSULE PO PRN ×2 (02:01→07:45)
[2017-10-15] MEDS: chlordiazePOXIDE HCL 25 MG CAPSULE PO SCH ×3 (05:25→18:52)
[2017-10-15] MEDS: GABAPENTIN 300 MG CAPSULE (FP) PO SCH ×3 (05:25→22:22)
[2017-10-15] MEDS ORDERED: diazePAM 5 MG TABLET PO SCH (10:00)
[2017-10-15] MEDS: DULoxetine HCL 20 MG CAPSULE.DR (FP) PO SCH (10:33)
[2017-10-15] MEDS: PRENATAL VITAMINS W/ FOLIC ACID TABLET (FP) PO SCH (10:33)
[2017-10-15] MEDS: NICOTINE 14 MG/24 HOURS TOPICAL PATCH TD SCH (10:35)
--- NOTE | 2017-10-15 11:53 | PN ---
S CIWA - CIWA Score Nausea/Vomitin Muscle Tremors: 2 Anxiety: 1-Mildly Anxious Agitation: 1-Slight > Activity Paroxysmal Sweats: 3 Orientation: 0-Oriented Tacttile Disturbances: 1-Very Mild Itch/Numbness Auditory Disturbances: 0-None Visual Disturbances: 0-None Headache: 1-Very Mild CIWA-Ar Total Score: 12 BHS Progress Note (SOAP) Subjective: nausa, sweats, interrupted sleep, anxiety, tremors, c/o constipation from psych med started. Objective: 10/15/17 11:51 Vital Signs - 24 hr 10/14/17 10/14/17 10/14/17 12:00 12:30 13:00 Temperature Pulse Rate 80 72 80 Respiratory 18 18 18 Rate Blood Pressure 10/14/17 10/14/17 10/14/17 13:30 14:00 14:30 Temperature Pulse Rate 80 101 H 101 H Respiratory 18 Rate Blood Pressure 10/14/17 10/14/17 10/14/17 15:00 17:26 22:35 Temperature 97.9 F 97.9 F Pulse Rate 99 H 94 H 88 Respiratory 19 18 Rate Blood Pressure 107/69 122/75 10/15/17 10/15/17 10/15/17 00:30 03:30 06:45 Temperature 98.1 F Pulse Rate 78 Respiratory 18 18 18 Rate Blood Pressure 91/58 10/15/17 10:00 Temperature 98.1 F Pulse Rate 111 H Respiratory 18 Rate Blood Pressure 113/66 tachycardia, dehydration, Laboratory Tests 10/13/17 10/13/17 10/14/17 05:50 22:00 05:50 WBC 10.5 H D RBC 4.51 Hgb 9.1 L Hct 30.9 L MCV 68.5 L MCH 20.2 L MCHC 29.5 L RDW 21.3 H Plt Count 344 D MPV 7.5 Sodium Potassium Chloride Carbon Dioxide Anion Gap BUN Creatinine Creat Clearance w eGFR Random Glucose Calcium Total Bilirubin AST ALT Alkaline Phosphatase Total Protein Albumin Urine Color Yellow Urine Appearance Cloudy Urine pH 5.0 D Ur Specific [place] 1.012 Urine Protein Negative Urine Glucose (UA) Negative Urine Ketones Negative Urine Blood Negative Urine Nitrite Negative Urine Bilirubin Negative Urine Urobilinogen Negative Ur Leukocyte Esterase Trace Urine WBC (Auto) 10-15 Urine RBC (Auto) None Ur Epithelial Cells Many Urine Bacteria Moderate RPR Titer HIV 1&2 Antibody Screen Negative HIV P24 Antigen Negative 10/14/17 10/14/17 05:50 05:50 WBC RBC Hgb Hct MCV MCH MCHC RDW Plt Count MPV Sodium 140 Potassium 3.3 L Chloride 108 H Carbon Dioxide 21 Anion Gap 11 BUN 9 Creatinine 0.8 Creat Clearance w eGFR > 60 Random Glucose 133 H Calcium 8.1 L Total Bilirubin 0.3 D AST 14 L ALT 22 Alkaline Phosphatase 80 Total Protein 7.5 Albumin 3.8 Urine Color Urine Appearance Urine pH Ur Specific [place] Urine Protein Urine Glucose (UA) Urine Ketones Urine Blood Urine Nitrite Urine Bilirubin Urine Urobilinogen Ur Leukocyte Esterase Urine WBC (Auto) Urine RBC (Auto) Ur Epithelial Cells Urine Bacteria RPR Titer Nonreactive HIV 1&2 Antibody Screen HIV P24 Antigen hypokalemia, appers sedated from psych meds, a and ox3 Assessment: 10/15/17 11:52 withdrwal sx, hypokalemia, dehydration motor retardation from psych medications - cont detox, reduce non essential centrally acting sedating meds including sleep aids, fludis, encourage ambualtion suppplement k
[2017-10-15] MEDS: POTASSIUM CHLORIDE TABS 20 MEQ TABLET.ER (FP) PO SCH ×2 (12:29→22:22)
--- NOTE | 2017-10-15 16:32 | PN ---
[facility] Progress Note Note: patient requesting to be discharged to rehab in AM when bed availanble, medicallys table at present will accelearate detox schedule and give regualr discharge for tomrorow.
[2017-10-15] MEDS ORDERED: SENNOSIDES 8.6MG TABLET (FP) PO SCH (22:00)
[2017-10-15] MEDS ORDERED: traZODone HCL 50 MG TABLET (FP) PO SCH (22:00)
[2017-10-15] MEDS ORDERED: DOCUSATE SODIUM 100 MG CAPSULE (FP) PO SCH (22:00)
[2017-10-15] MEDS ORDERED: metroNIDAZOLE 0.75% VAGINAL GEL 70 GM TUBE VG SCH (22:00)
[2017-10-15] MEDS: THIAMINE HCL 100 MG TABLET (FP) PO SCH (22:23)
[2017-10-15] MEDS: MIRTAZAPINE 15 MG TABLET (FP) PO SCH (22:23)
[2017-10-15] MEDS ORDERED: chlordiazePOXIDE 5 MG CAPSULE PO SCH (23:00)
[2017-10-15] MEDS: chlordiazePOXIDE HCL 10 MG CAPSULE PO SCH (23:13)
[2017-10-16] MEDS: GABAPENTIN 300 MG CAPSULE (FP) PO SCH (05:34)
[2017-10-16] MEDS: chlordiazePOXIDE HCL 10 MG CAPSULE PO SCH ×2 (05:34→10:22)
--- NOTE | 2017-10-16 09:42 | PN ---
[facility] Progress Note (SOAP) Subjective: no comp;aiints, would like medicaton fro sleep and constipation, aveeno soap for skin in rehab Objective: 10/16/17 09:41 Vital Signs - 24 hr 10/15/17 10/15/17 10/15/17 10:00 14:02 17:16 Temperature 98.1 F 98.1 F 98.6 F Pulse Rate 111 H 90 96 H Respiratory 18 18 20 Rate Blood Pressure 113/66 121/83 106/66 10/15/17 10/16/17 10/16/17 21:58 03:30 06:00 Temperature 97.7 F 97.9 F Pulse Rate 92 H 91 H Respiratory 18 18 18 Rate Blood Pressure 108/16 108/60 Laboratory Tests 10/13/17 10/13/17 10/14/17 05:50 22:00 05:50 WBC 10.5 H D RBC 4.51 Hgb 9.1 L Hct 30.9 L MCV 68.5 L MCH 20.2 L MCHC 29.5 L RDW 21.3 H Plt Count 344 D MPV 7.5 Sodium Potassium Chloride Carbon Dioxide Anion Gap BUN Creatinine Creat Clearance w eGFR Random Glucose Calcium Total Bilirubin AST ALT Alkaline Phosphatase Total Protein Albumin Urine Color Yellow Urine Appearance Cloudy Urine pH 5.0 D Ur Specific [place] 1.012 Urine Protein Negative Urine Glucose (UA) Negative Urine Ketones Negative Urine Blood Negative Urine Nitrite Negative Urine Bilirubin Negative Urine Urobilinogen Negative Ur Leukocyte Esterase Trace Urine WBC (Auto) 10-15 Urine RBC (Auto) None Ur Epithelial Cells Many Urine Bacteria Moderate RPR Titer HIV 1&2 Antibody Screen Negative HIV P24 Antigen Negative 10/14/17 10/14/17 05:50 05:50 WBC RBC Hgb Hct MCV MCH MCHC RDW Plt Count MPV Sodium 140 Potassium 3.3 L Chloride 108 H Carbon Dioxide 21 Anion Gap 11 BUN 9 Creatinine 0.8 Creat Clearance w eGFR > 60 Random Glucose 133 H Calcium 8.1 L Total Bilirubin 0.3 D AST 14 L ALT 22 Alkaline Phosphatase 80 Total Protein 7.5 Albumin 3.8 Urine Color Urine Appearance Urine pH Ur Specific [place] Urine Protein Urine Glucose (UA) Urine Ketones Urine Blood Urine Nitrite Urine Bilirubin Urine Urobilinogen Ur Leukocyte Esterase Urine WBC (Auto) Urine RBC (Auto) Ur Epithelial Cells Urine Bacteria RPR Titer Nonreactive HIV 1&2 Antibody Screen HIV P24 Antigen Assessment: 10/16/17 09:42 completed detox, medically stable, low k, low iron recieving supplementation.
[2017-10-16] MEDS ORDERED: MAGNESIUM CITRATE 300 ML BOTTLE PO ONE (09:45)
--- NOTE | 2017-10-16 09:46 | DS ---
[facility] Detox Discharge Summary Admission Date: 10/13/17 Discharge Date: 10/16/17 - History Present History: Alcohol Dependence Additional Comments: pateint requested early discharge and accelrated detox schedule as she was feeling well enought to go torehab Pertinent Past History: anxiety, depression and insomnia, bialteral carpla tunnel surgery, nicotien dependence. - Physical Exam Results Vital Signs: Vital Signs Temperature 97.9 F 10/16/17 06:00 Pulse Rate 91 H 10/16/17 06:00 Respiratory Rate 18 10/16/17 06:00 Blood Pressure 108/60 10/16/17 06:00 O2 Sat by Pulse Oximetry (%) Laboratory Tests 10/13/17 10/13/17 10/14/17 05:50 22:00 05:50 WBC 10.5 H D RBC 4.51 Hgb 9.1 L Hct 30.9 L MCV 68.5 L MCH 20.2 L MCHC 29.5 L RDW 21.3 H Plt Count 344 D MPV 7.5 Sodium Potassium Chloride Carbon Dioxide Anion Gap BUN Creatinine Creat Clearance w eGFR Random Glucose Calcium Total Bilirubin AST ALT Alkaline Phosphatase Total Protein Albumin Urine Color Yellow Urine Appearance Cloudy Urine pH 5.0 D Ur Specific [place] 1.012 Urine Protein Negative Urine Glucose (UA) Negative Urine Ketones Negative Urine Blood Negative Urine Nitrite Negative Urine Bilirubin Negative Urine Urobilinogen Negative Ur Leukocyte Esterase Trace Urine WBC (Auto) 10-15 Urine RBC (Auto) None Ur Epithelial Cells Many Urine Bacteria Moderate RPR Titer HIV 1&2 Antibody Screen Negative HIV P24 Antigen Negative 10/14/17 10/14/17 05:50 05:50 WBC RBC Hgb Hct MCV MCH MCHC RDW Plt Count MPV Sodium 140 Potassium 3.3 L Chloride 108 H Carbon Dioxide 21 Anion Gap 11 BUN 9 Creatinine 0.8 Creat Clearance w eGFR > 60 Random Glucose 133 H Calcium 8.1 L Total Bilirubin 0.3 D AST 14 L ALT 22 Alkaline Phosphatase 80 Total Protein 7.5 Albumin 3.8 Urine Color Urine Appearance Urine pH Ur Specific [place] Urine Protein Urine Glucose (UA) Urine Ketones Urine Blood Urine Nitrite Urine Bilirubin Urine Urobilinogen Ur Leukocyte Esterase Urine WBC (Auto) Urine RBC (Auto) Ur Epithelial Cells Urine Bacteria RPR Titer Nonreactive HIV 1&2 Antibody Screen HIV P24 Antigen Pertinent Admission Physical Exam Findings: withdrawal sx - Treatment Hospital Course: Detox Protocol Followed, Detoxed Safely, Responded well, Discharged Condition Good, Rehab Referral Accepted Patient has Accepted a Rehab Referral to: Yes - Medication Discharge Medications: Ambulatory Orders Docusate Sodium [Colace -] 300 mg PO HS capsule 10/16/17 Melatonin 5 mg PO HS PRN tab 10/16/17 Potassium Chloride [K-Dur -] 20 meq PO BID tablet.er 10/16/17 Sennosides [Senna -] 2 tab PO HS tablet 10/16/17 metroNIDAZOLE 0.75% VAG. GEL [Metrogel 0.75% Vaginal Gel -] 1 applic VG HS tube 10/16/17 - Diagnosis (1) Alcohol dependence with uncomplicated withdrawal Current Visit: Yes Status: Acute (2) Bipolar II disorder Current Visit: Yes Status: Chronic (3) BV (bacterial vaginosis) Current Visit: No Status: Acute (4) Cocaine dependence Current Visit: No Status: Chronic (5) Constipation Current Visit: Yes Status: Chronic Qualifiers: Constipation type: slow transit constipation Qualified Code(s): K59.01 - Slow transit constipation (6) History of carpal tunnel surgery of left wrist Current Visit: No Status: Resolved (7) History of carpal tunnel surgery of right wrist Current Visit: No Status: Resolved (8) History of gastric bypass Current Visit: Yes Status: Resolved (9) Insomnia Current Visit: Yes Status: Acute (10) Iron deficiency anemia Current Visit: Yes Status: Chronic Qualifiers: Iron deficiency anemia type: unspecified iron deficiency Qualified Code(s) : D50.9 - Iron deficiency anemia, unspecified (11) Lower back pain Current Visit: Yes Status: Chronic Qualifiers: Chronicity: chronic Sciatica presence: with sciatica (12) Nicotine dependence Current Visit: No Status: Chronic Qualifiers: (13) S/P gastric bypass Current Visit: No Status: Acute (14) Sciatic nerve pain Current Visit: No Status: Chronic (15) Substance induced mood disorder Current Visit: Yes Status: Acute - AMA Did Patient Leave Against Medical Advice: No
--- NOTE | 2017-10-16 09:46 | HP ---
SYD RODRIGUEZ Rehab Assess/Revision - Admission History Admitted to Rehab from: [facility] [place] Date of Admission to Rehab: 10/16/2017 - Vital signs Vital Signs: Vital Signs Period Temp Pulse Resp BP Sys/Pathak Pulse Ox Last 24 Hr 97.7 F-98.6 F 90-111 18-20 106-121/16-83 - Findings Detox History & Physical reviewed: Yes Concur with findings: Yes Inpatient Rehab Admission - Initial Determination Are CD services needed?: Yes Free of communicable disease: Yes Not in need of hospitalization: Yes - Rehab Admission Criteria Previous failed treatment: Yes Patient is meeting Inpatient Rehab admission criteria:: Yes (needs treatment for bacterial vaginaosis)
[2017-10-16] MEDS ORDERED: MAG HYDROX/AL HYDROX/SIMETH 30 ML UNIT-DOSE CUP PO PRN (09:47)
[2017-10-16] MEDS ORDERED: MENTHOL/PHENOL 1 EACH UD MM PRN (09:47)
[2017-10-16] MEDS ORDERED: IBUPROFEN 400 MG TABLET (FP) PO PRN (09:47)
[2017-10-16] MEDS ORDERED: MAGNESIUM CITRATE 300 ML BOTTLE PO PRN (09:47)
[2017-10-16] MEDS ORDERED: LOPERAMIDE HCL 2 MG CAPSULE PO PRN (09:47)
[2017-10-16] MEDS ORDERED: guaiFENesin/D-METHORPHAN HB 10 ML UNIT-DOSE CUPS PO PRN (09:47)
[2017-10-16] MEDS ORDERED: P-EPHED 60MG/TRIPROLIDI 2.5MG TABLET PO PRN (09:47)
[2017-10-16] MEDS ORDERED: MAGNESIUM HYDROX 2400MG/30ML ORAL SUSPENSION 30 ML CUP PO PRN (09:47)
[2017-10-16] MEDS ORDERED: ACETAMINOPHEN 325 MG TABLET (FP) PO PRN (09:47)
[2017-10-16] MEDS ORDERED: PRENATAL VITAMINS W/ FOLIC ACID TABLET (FP) PO SCH (10:00)
[2017-10-16] MEDS: DULoxetine HCL 20 MG CAPSULE.DR (FP) PO SCH (10:22)
[2017-10-16] MEDS: POTASSIUM CHLORIDE TABS 20 MEQ TABLET.ER (FP) PO SCH (10:22)
[2017-10-16] MEDS: PRENATAL VITAMINS W/ FOLIC ACID TABLET (FP) PO SCH (10:22)
[2017-10-16 10:23] LABS: URINE APPEARANCE CLEAR; URINE BILIRUBIN NEGATIVE (<2.0 mg/dL); URINE BLOOD NEGATIVE (NEGATIVE); URINE COLOR STRAW; URINE GLUCOSE (UA) NEGATIVE (NEGATIVE); URINE KETONE NEGATIVE (NEGATIVE); URINE LEUK ESTERASE NEGATIVE (NEGATIVE); URINE NITRITE NEGATIVE (NEGATIVE); URINE PROTEIN NEGATIVE (NEGATIVE); URINE UROBILINOGEN NEGATIVE mg/dL (0.2-1.0)
[2017-10-16] MEDS: NICOTINE 14 MG/24 HOURS TOPICAL PATCH TD SCH (10:23)
[2017-10-16 11:08] VITALS: BP 93/62; PULSE 112; TEMP 98.2
[2017-10-16] MEDS ORDERED: THIAMINE HCL 100 MG TABLET (FP) PO SCH (22:00)
[2017-10-16] MEDS ORDERED: MELATONIN 5 MG TABLETS PO PRN (22:00)
[2017-10-16] MEDS ORDERED: chlordiazePOXIDE HCL 10 MG CAPSULE PO SCH (23:00)
[2017-10-17] MEDS ORDERED: diazePAM 5 MG TABLET PO SCH (10:00)
== END 2017-10-16 10:53 | disposition other institution (70) | DRG 774 ==
LOC: YASAS 12:06 → Y6N 17:26
PROVIDERS: ADMIT Internal Medicine; ATTEND Internal Medicine
PROC: HZ2ZZZZ Detoxification Services for Substance Abuse Treatment (ICD-10-PCS; principal; 2017-10-13)
DX: F10.230 Alcohol dependence with withdrawal, uncomplicated (principal); F14.20 Cocaine dependence, uncomplicated; F17.210 Nicotine dependence, cigarettes, uncomplicated; F31.81 Bipolar II disorder; F41.8 Other specified anxiety disorders; F19.24 Other psychoactive substance dependence with psychoactive substance-induced mood disorder; G47.00 Insomnia, unspecified; M54.30 Sciatica, unspecified side; D50.9 Iron deficiency anemia, unspecified; K59.01 Slow transit constipation; N76.0 Acute vaginitis; B37.9 Candidiasis, unspecified; Z98.84 Bariatric surgery status; Z98.890 Other specified postprocedural states
CPT/HCPCS: 36415; 80053; 81003; 81015; 85027; 86593; 87389; 93005; 93010

== ENCOUNTER 2017-10-16 11:00 | Inpatient (IN) | payer OTHER ==
--- NOTE | 2017-10-16 15:13 | PN ---
[facility] Progress Note Note: was called by a nurse to enter orders for medications, chart reviewed, patient is a 42 year old with history of Bipolar II, insomnia, alcohol dependence, several 3 e admission, was seen at [facility] by JANICE Campbell and currently on cymbalta 40mg + Gabapentin 300mg TID + Trazodone 100mg qhs + Mirtzapine 15mg qhs, will place orders, psychiatric evaluation in am.
[2017-10-16] MEDS ORDERED: MENTHOL/PHENOL 1 EACH UD MM PRN (16:20)
[2017-10-16] MEDS ORDERED: LOPERAMIDE HCL 2 MG CAPSULE PO PRN (16:20)
[2017-10-16] MEDS ORDERED: NICOTINE POLACRILEX 2 MG GUM BUC PRN (16:20)
[2017-10-16] MEDS ORDERED: guaiFENesin/D-METHORPHAN HB 10 ML UNIT-DOSE CUPS PO PRN (16:20)
[2017-10-16] MEDS ORDERED: IBUPROFEN 400 MG TABLET (FP) PO PRN (16:20)
[2017-10-16] MEDS ORDERED: P-EPHED 60MG/TRIPROLIDI 2.5MG TABLET PO PRN (16:20)
[2017-10-16] MEDS ORDERED: ACETAMINOPHEN 325 MG TABLET (FP) PO PRN (16:20)
[2017-10-16] MEDS ORDERED: MAG HYDROX/AL HYDROX/SIMETH 30 ML UNIT-DOSE CUP PO PRN (16:20)
[2017-10-16] MEDS ORDERED: MAGNESIUM CITRATE 300 ML BOTTLE PO PRN (16:20)
--- NOTE | 2017-10-16 16:22 | HP ---
SYD RODRIGUE[facility] Rehab Assess/Revision - Admission History Admitted to Rehab from: [facility] [place] Date of Admission to Rehab: 10/16/17 - Vital signs Vital Signs: Vital Signs Period Temp Pulse Resp BP Sys/Pathak Pulse Ox Last 24 Hr 98.2 F 106 16 106/71 - Findings Detox History & Physical reviewed: Yes Concur with findings: Yes Inpatient Rehab Admission - Initial Determination Are CD services needed?: Yes Free of communicable disease: Yes Not in need of hospitalization: Yes - Rehab Admission Criteria Previous failed treatment: Yes Poor recovery environment: Yes Comorbidities: Yes Lacks judgement: Yes Patient is meeting Inpatient Rehab admission criteria:: Yes
[2017-10-16] MEDS ORDERED: MIRTAZAPINE 15 MG TABLET (FP) PO SCH (22:00)
[2017-10-16] MEDS ORDERED: traZODone HCL 50 MG TABLET (FP) PO SCH (22:00)
[2017-10-16] MEDS ORDERED: MELATONIN 5 MG TABLETS PO PRN (22:00)
[2017-10-16] MEDS: DOCUSATE SODIUM 100 MG CAPSULE (FP) PO SCH (22:30)
[2017-10-16] MEDS: GABAPENTIN 300 MG CAPSULE (FP) PO SCH (22:30)
[2017-10-16] MEDS: THIAMINE HCL 100 MG TABLET (FP) PO SCH (22:35)
[2017-10-16] MEDS: SENNOSIDES 8.6MG TABLET (FP) PO SCH (22:35)
[2017-10-17] MEDS: GABAPENTIN 300 MG CAPSULE (FP) PO SCH ×3 (06:30→21:23)
[2017-10-17] MEDS ORDERED: DULoxetine HCL 20 MG CAPSULE.DR (FP) PO SCH (10:00)
[2017-10-17] MEDS: NICOTINE 14 MG/24 HOURS TOPICAL PATCH TD SCH (10:20)
[2017-10-17] MEDS: PRENATAL VITAMINS W/ FOLIC ACID TABLET (FP) PO SCH (10:21)
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
[2017-10-17] MEDS: DOCUSATE SODIUM 100 MG CAPSULE (FP) PO SCH (21:23)
[2017-10-17] MEDS: MIRTAZAPINE 15 MG TABLET (FP) PO SCH (21:23)
[2017-10-17] MEDS: traZODone HCL 50 MG TABLET (FP) PO SCH (21:23)
[2017-10-17] MEDS: ACAMPROSATE CALCIUM 333 MG TABLET.DR PO SCH (21:23)
[2017-10-17] MEDS: THIAMINE HCL 100 MG TABLET (FP) PO SCH (21:23)
[2017-10-17] MEDS: SENNOSIDES 8.6MG TABLET (FP) PO SCH (21:24)
[2017-10-18] MEDS: GABAPENTIN 300 MG CAPSULE (FP) PO SCH ×3 (06:43→21:59)
[2017-10-18] MEDS: ACAMPROSATE CALCIUM 333 MG TABLET.DR PO SCH ×3 (06:43→22:00)
[2017-10-18] MEDS: NICOTINE 14 MG/24 HOURS TOPICAL PATCH TD SCH (09:42)
[2017-10-18] MEDS: DULoxetine HCL 60 MG CAPSULE.DR PO SCH (09:43)
[2017-10-18] MEDS: PRENATAL VITAMINS W/ FOLIC ACID TABLET (FP) PO SCH (09:43)
[2017-10-18] MEDS: SENNOSIDES 8.6MG TABLET (FP) PO SCH (21:59)
[2017-10-18] MEDS: MIRTAZAPINE 15 MG TABLET (FP) PO SCH (21:59)
[2017-10-18] MEDS: THIAMINE HCL 100 MG TABLET (FP) PO SCH (21:59)
[2017-10-18] MEDS: DOCUSATE SODIUM 100 MG CAPSULE (FP) PO SCH (22:00)
[2017-10-18] MEDS: traZODone HCL 50 MG TABLET (FP) PO SCH (22:00)
[2017-10-19] MEDS: GABAPENTIN 300 MG CAPSULE (FP) PO SCH ×3 (06:39→22:45)
[2017-10-19] MEDS: ACAMPROSATE CALCIUM 333 MG TABLET.DR PO SCH ×3 (06:39→22:45)
--- NOTE | 2017-10-19 09:38 | PN ---
[facility] Progress Note Note: sensitive skin,aveeno soap ordered,hydrocortisone cream 0.05% bid
[2017-10-19] MEDS: NICOTINE 14 MG/24 HOURS TOPICAL PATCH TD SCH (10:00)
[2017-10-19] MEDS: PRENATAL VITAMINS W/ FOLIC ACID TABLET (FP) PO SCH (10:00)
[2017-10-19] MEDS: COLLOIDAL OATMEAL 1 BAR EACH TP PRN (10:00)
[2017-10-19] MEDS: DULoxetine HCL 60 MG CAPSULE.DR PO SCH (10:01)
[2017-10-19] MEDS: HYDROCORTISONE 0.5% TOPICAL CREAM 30 GM TUBE TP SCH ×2 (12:27→22:48)
[2017-10-19] MEDS: THIAMINE HCL 100 MG TABLET (FP) PO SCH (22:45)
[2017-10-19] MEDS: DOCUSATE SODIUM 100 MG CAPSULE (FP) PO SCH (22:45)
[2017-10-19] MEDS: traZODone HCL 50 MG TABLET (FP) PO SCH (22:45)
[2017-10-19] MEDS: SENNOSIDES 8.6MG TABLET (FP) PO SCH (22:45)
[2017-10-19] MEDS: MIRTAZAPINE 15 MG TABLET (FP) PO SCH (22:45)
[2017-10-20] MEDS: GABAPENTIN 300 MG CAPSULE (FP) PO SCH ×3 (06:33→21:22)
[2017-10-20] MEDS: ACAMPROSATE CALCIUM 333 MG TABLET.DR PO SCH ×3 (07:14→21:22)
[2017-10-20] MEDS ORDERED: PT OWN MED DRAWER 7, Y5N ONE (08:00)
[2017-10-20] MEDS: DULoxetine HCL 60 MG CAPSULE.DR PO SCH (09:35)
[2017-10-20] MEDS: NICOTINE 14 MG/24 HOURS TOPICAL PATCH TD SCH (09:35)
[2017-10-20] MEDS: PRENATAL VITAMINS W/ FOLIC ACID TABLET (FP) PO SCH (09:35)
[2017-10-20] MEDS: HYDROCORTISONE 0.5% TOPICAL CREAM 30 GM TUBE TP SCH ×2 (09:36→21:23)
--- NOTE | 2017-10-20 12:10 | PN ---
[facility] Progress Note Note: Patient continues to c/o constipation Laboratory Tests 10/17/17 06:00 HIV 1&2 Antibody Screen Negative HIV P24 Antigen Negative Vital Signs Temp 98.0 F 10/20/17 07:26 Pulse 87 10/20/17 07:26 Resp 18 10/20/17 07:26 BP 100/68 10/20/17 07:26 Pulse Ox Subj: +constipation, no N/V/D. Last BM last night, hard stool. Obj: Awake and alert x 3. GI soft, no distention noted. A/P: Constipation Pt is currently on Colace and Senna. Citroma and MOM prn. Continue same regimen, increase oral fluids Continue to monitor clinically
[2017-10-20] MEDS: MIRTAZAPINE 15 MG TABLET (FP) PO SCH (21:22)
[2017-10-20] MEDS: DOCUSATE SODIUM 100 MG CAPSULE (FP) PO SCH (21:22)
[2017-10-20] MEDS: traZODone HCL 50 MG TABLET (FP) PO SCH (21:22)
[2017-10-20] MEDS: THIAMINE HCL 100 MG TABLET (FP) PO SCH (21:22)
[2017-10-20] MEDS: SENNOSIDES 8.6MG TABLET (FP) PO SCH (21:23)
[2017-10-21] MEDS: GABAPENTIN 300 MG CAPSULE (FP) PO SCH ×3 (06:25→21:46)
[2017-10-21] MEDS: ACAMPROSATE CALCIUM 333 MG TABLET.DR PO SCH ×3 (06:25→21:46)
[2017-10-21] MEDS: NICOTINE 14 MG/24 HOURS TOPICAL PATCH TD SCH (10:22)
[2017-10-21] MEDS: DULoxetine HCL 60 MG CAPSULE.DR PO SCH (10:22)
[2017-10-21] MEDS: HYDROCORTISONE 0.5% TOPICAL CREAM 30 GM TUBE TP SCH ×2 (10:22→21:49)
[2017-10-21] MEDS: PRENATAL VITAMINS W/ FOLIC ACID TABLET (FP) PO SCH (10:22)
[2017-10-21] MEDS: MAGNESIUM HYDROX 2400MG/30ML ORAL SUSPENSION 30 ML CUP PO PRN (10:23)
--- NOTE | 2017-10-21 13:36 | PN ---
[facility] Progress Note Note: Patient reports vaginal itch with white thick discharge x "several days" with dysurian, denies hematuria or urgency Vital Signs Temperature 98.0 F 10/21/17 07:12 Pulse Rate 87 10/21/17 07:12 Respiratory Rate 18 10/21/17 07:12 Blood Pressure 103/71 10/21/17 07:12 O2 Sat by Pulse Oximetry (%) Laboratory Last Values HIV 1&2 Antibody Screen Negative 10/17/17 06:00 HIV P24 Antigen Negative 10/17/17 06:00 Patient in no apparent distress ambulating in the unit. + vaginal discomfort A/P: vaginitis metronidazole vag cream x 5 days labs pending increase oral fluids continue to monitor clinically
[2017-10-21 15:14] LABS: CHLORIDE 112 mmol/L (98-107); POTASSIUM 4.2 mmol/L (3.5-5.1); SODIUM 142 mmol/L (136-145)
[2017-10-21 15:39] LABS: ANION GAP 8 (8-16); BLOOD UREA NITROGEN 14 mg/dL (7-18); CO2 22 mmol/L (21-32); CREATININE 0.7 mg/dL (0.55-1.02); GLUCOSE,RANDOM 66 mg/dL (74-106)
[2017-10-21] MEDS: DOCUSATE SODIUM 100 MG CAPSULE (FP) PO SCH (21:46)
[2017-10-21] MEDS: MIRTAZAPINE 15 MG TABLET (FP) PO SCH (21:46)
[2017-10-21] MEDS: SENNOSIDES 8.6MG TABLET (FP) PO SCH (21:47)
[2017-10-21] MEDS: traZODone HCL 50 MG TABLET (FP) PO SCH (21:47)
[2017-10-21] MEDS: metroNIDAZOLE 0.75% VAGINAL GEL 70 GM TUBE VG SCH (21:50)
[2017-10-21] MEDS: THIAMINE HCL 100 MG TABLET (FP) PO SCH (21:51)
[2017-10-22] MEDS: ACAMPROSATE CALCIUM 333 MG TABLET.DR PO SCH ×3 (06:34→22:08)
[2017-10-22] MEDS: GABAPENTIN 300 MG CAPSULE (FP) PO SCH ×3 (06:34→22:07)
[2017-10-22] MEDS: NICOTINE 14 MG/24 HOURS TOPICAL PATCH TD SCH (10:10)
[2017-10-22] MEDS: HYDROCORTISONE 0.5% TOPICAL CREAM 30 GM TUBE TP SCH ×2 (10:10→22:09)
[2017-10-22] MEDS: DULoxetine HCL 60 MG CAPSULE.DR PO SCH (10:12)
[2017-10-22] MEDS: PRENATAL VITAMINS W/ FOLIC ACID TABLET (FP) PO SCH (10:13)
--- NOTE | 2017-10-22 13:59 | PN ---
S Progress Note Note: Notified by staff patient lost her balance while taking out tray from refridgerator. Laboratory Tests 10/17/17 10/21/17 06:00 08:30 Sodium 142 Potassium 4.2 Chloride 112 H Carbon Dioxide 22 Anion Gap 8 BUN 14 Creatinine 0.7 Random Glucose 66 L Calcium 8.0 L HIV 1&2 Antibody Screen Negative HIV P24 Antigen Negative Vital Signs Temperature 98 F 10/22/17 13:00 Pulse Rate 103 H 10/22/17 13:00 Respiratory Rate 19 10/22/17 13:00 Blood Pressure 114/75 10/22/17 13:00 O2 Sat by Pulse Oximetry (%) Subj: pt denies hitting head on floor/object, back pain, leg/arm pain and dizziness. States she lost her balance and fell on buttocks but feels fine. Complain of constipation and hard stool. Obj: HEENT: normocephalic, +PERRLA, hearing normal Neck: supple, no JVD Car: S1S2. RRR. No murmurs Resp: CTA BL GI: soft BS+, NT EXT: no edema, FROM, no visible injuries A/P s/p fall, no visible injuries Constipation Will order fall protocol #2 Increase oral fluids Metamucil packet daily continue to monitor
[2017-10-22] MEDS: DOCUSATE SODIUM 100 MG CAPSULE (FP) PO SCH (22:07)
[2017-10-22] MEDS: THIAMINE HCL 100 MG TABLET (FP) PO SCH (22:07)
[2017-10-22] MEDS: SENNOSIDES 8.6MG TABLET (FP) PO SCH (22:07)
[2017-10-22] MEDS: traZODone HCL 50 MG TABLET (FP) PO SCH (22:08)
[2017-10-22] MEDS: MIRTAZAPINE 15 MG TABLET (FP) PO SCH (22:08)
[2017-10-22] MEDS: metroNIDAZOLE 0.75% VAGINAL GEL 70 GM TUBE VG SCH (22:09)
[2017-10-23] MEDS: GABAPENTIN 300 MG CAPSULE (FP) PO SCH ×3 (06:33→21:47)
[2017-10-23] MEDS: ACAMPROSATE CALCIUM 333 MG TABLET.DR PO SCH ×3 (06:33→21:47)
[2017-10-23] MEDS ORDERED: PT OWN MED DRAWER 7, Y5N ONE ×3 (08:40→21:55)
[2017-10-23] MEDS: HYDROCORTISONE 0.5% TOPICAL CREAM 30 GM TUBE TP SCH ×2 (09:59→21:46)
[2017-10-23] MEDS: PRENATAL VITAMINS W/ FOLIC ACID TABLET (FP) PO SCH (09:59)
[2017-10-23] MEDS: PSYLLIUM 5.85 GM PACKET PO SCH (09:59)
[2017-10-23] MEDS: NICOTINE 14 MG/24 HOURS TOPICAL PATCH TD SCH (09:59)
[2017-10-23] MEDS: DULoxetine HCL 60 MG CAPSULE.DR PO SCH (09:59)
[2017-10-23] MEDS: MAGNESIUM HYDROX 2400MG/30ML ORAL SUSPENSION 30 ML CUP PO PRN (10:02)
[2017-10-23] MEDS: THIAMINE HCL 100 MG TABLET (FP) PO SCH (21:46)
[2017-10-23] MEDS: DOCUSATE SODIUM 100 MG CAPSULE (FP) PO SCH (21:46)
[2017-10-23] MEDS: SENNOSIDES 8.6MG TABLET (FP) PO SCH (21:47)
[2017-10-23] MEDS: MIRTAZAPINE 15 MG TABLET (FP) PO SCH (21:47)
[2017-10-23] MEDS: traZODone HCL 50 MG TABLET (FP) PO SCH (21:47)
[2017-10-23] MEDS: metroNIDAZOLE 0.75% VAGINAL GEL 70 GM TUBE VG SCH (21:48)
[2017-10-24] MEDS: ACAMPROSATE CALCIUM 333 MG TABLET.DR PO SCH ×3 (06:40→22:45)
[2017-10-24] MEDS: GABAPENTIN 300 MG CAPSULE (FP) PO SCH ×3 (06:40→22:50)
[2017-10-24] MEDS: DULoxetine HCL 60 MG CAPSULE.DR PO SCH (09:43)
[2017-10-24] MEDS: HYDROCORTISONE 0.5% TOPICAL CREAM 30 GM TUBE TP SCH ×2 (09:43→22:50)
[2017-10-24] MEDS: NICOTINE 14 MG/24 HOURS TOPICAL PATCH TD SCH (09:43)
[2017-10-24] MEDS: PRENATAL VITAMINS W/ FOLIC ACID TABLET (FP) PO SCH (09:43)
[2017-10-24] MEDS: PSYLLIUM 5.85 GM PACKET PO SCH (09:44)
[2017-10-24] MEDS ORDERED: PT OWN MED DRAWER 7, Y5N ONE (18:07)
[2017-10-24] MEDS: MIRTAZAPINE 15 MG TABLET (FP) PO SCH (22:50)
[2017-10-24] MEDS: SENNOSIDES 8.6MG TABLET (FP) PO SCH (22:50)
[2017-10-24] MEDS: DOCUSATE SODIUM 100 MG CAPSULE (FP) PO SCH (22:50)
[2017-10-24] MEDS: metroNIDAZOLE 0.75% VAGINAL GEL 70 GM TUBE VG SCH (22:50)
[2017-10-24] MEDS: THIAMINE HCL 100 MG TABLET (FP) PO SCH (22:50)
[2017-10-24] MEDS: traZODone HCL 50 MG TABLET (FP) PO SCH (22:50)
[2017-10-25] MEDS: COLLOIDAL OATMEAL 1 BAR EACH TP PRN (07:04)
[2017-10-25] MEDS: ACAMPROSATE CALCIUM 333 MG TABLET.DR PO SCH ×3 (07:04→21:48)
[2017-10-25] MEDS: GABAPENTIN 300 MG CAPSULE (FP) PO SCH ×3 (07:04→21:47)
[2017-10-25] MEDS ORDERED: PT OWN MED DRAWER 7, Y5N ONE (08:53)
[2017-10-25] MEDS: HYDROCORTISONE 0.5% TOPICAL CREAM 30 GM TUBE TP SCH ×2 (09:39→21:57)
[2017-10-25] MEDS: PRENATAL VITAMINS W/ FOLIC ACID TABLET (FP) PO SCH (09:40)
[2017-10-25] MEDS: NICOTINE 14 MG/24 HOURS TOPICAL PATCH TD SCH (09:40)
[2017-10-25] MEDS: DULoxetine HCL 60 MG CAPSULE.DR PO SCH (09:40)
[2017-10-25] MEDS: PSYLLIUM 5.85 GM PACKET PO SCH (09:41)
[2017-10-25] MEDS: THIAMINE HCL 100 MG TABLET (FP) PO SCH (21:48)
[2017-10-25] MEDS: SENNOSIDES 8.6MG TABLET (FP) PO SCH (21:49)
[2017-10-25] MEDS: DOCUSATE SODIUM 100 MG CAPSULE (FP) PO SCH (21:49)
[2017-10-25] MEDS: traZODone HCL 50 MG TABLET (FP) PO SCH (21:50)
[2017-10-25] MEDS: MIRTAZAPINE 15 MG TABLET (FP) PO SCH (21:50)
[2017-10-25] MEDS: metroNIDAZOLE 0.75% VAGINAL GEL 70 GM TUBE VG SCH (21:57)
[2017-10-26] MEDS: GABAPENTIN 300 MG CAPSULE (FP) PO SCH ×3 (06:31→21:44)
[2017-10-26] MEDS: ACAMPROSATE CALCIUM 333 MG TABLET.DR PO SCH ×3 (06:31→21:43)
[2017-10-26] MEDS: DULoxetine HCL 60 MG CAPSULE.DR PO SCH (09:36)
[2017-10-26] MEDS: PRENATAL VITAMINS W/ FOLIC ACID TABLET (FP) PO SCH (09:36)
[2017-10-26] MEDS: PSYLLIUM 5.85 GM PACKET PO SCH (09:36)
[2017-10-26] MEDS: HYDROCORTISONE 0.5% TOPICAL CREAM 30 GM TUBE TP SCH ×2 (09:37→21:46)
[2017-10-26] MEDS: NICOTINE 14 MG/24 HOURS TOPICAL PATCH TD SCH (09:37)
[2017-10-26] MEDS: DOCUSATE SODIUM 100 MG CAPSULE (FP) PO SCH (21:43)
[2017-10-26] MEDS: traZODone HCL 50 MG TABLET (FP) PO SCH (21:43)
[2017-10-26] MEDS: MIRTAZAPINE 15 MG TABLET (FP) PO SCH (21:43)
[2017-10-26] MEDS: SENNOSIDES 8.6MG TABLET (FP) PO SCH (21:43)
[2017-10-26] MEDS: THIAMINE HCL 100 MG TABLET (FP) PO SCH (21:44)
[2017-10-27] MEDS: GABAPENTIN 300 MG CAPSULE (FP) PO SCH ×3 (06:35→21:41)
[2017-10-27] MEDS: ACAMPROSATE CALCIUM 333 MG TABLET.DR PO SCH ×3 (06:35→21:41)
[2017-10-27] MEDS ORDERED: PT OWN MED DRAWER 7, Y5N ONE (08:19)
[2017-10-27] MEDS: NICOTINE 14 MG/24 HOURS TOPICAL PATCH TD SCH (10:03)
[2017-10-27] MEDS: PRENATAL VITAMINS W/ FOLIC ACID TABLET (FP) PO SCH (10:03)
[2017-10-27] MEDS: PSYLLIUM 5.85 GM PACKET PO SCH (10:03)
[2017-10-27] MEDS: DULoxetine HCL 60 MG CAPSULE.DR PO SCH (10:03)
[2017-10-27] MEDS: HYDROCORTISONE 0.5% TOPICAL CREAM 30 GM TUBE TP SCH ×2 (10:04→23:18)
[2017-10-27] MEDS: COLLOIDAL OATMEAL 1 BAR EACH TP PRN (16:19)
[2017-10-27] MEDS: MIRTAZAPINE 15 MG TABLET (FP) PO SCH (21:41)
[2017-10-27] MEDS: DOCUSATE SODIUM 100 MG CAPSULE (FP) PO SCH (21:41)
[2017-10-27] MEDS: THIAMINE HCL 100 MG TABLET (FP) PO SCH (21:41)
[2017-10-27] MEDS: traZODone HCL 50 MG TABLET (FP) PO SCH (21:41)
[2017-10-27] MEDS: SENNOSIDES 8.6MG TABLET (FP) PO SCH (21:41)
[2017-10-28] MEDS: GABAPENTIN 300 MG CAPSULE (FP) PO SCH ×3 (07:03→22:05)
[2017-10-28] MEDS: ACAMPROSATE CALCIUM 333 MG TABLET.DR PO SCH ×3 (07:03→22:05)
[2017-10-28] MEDS: hydrOXYzine PAMOATE 50 MG CAPSULE (FP) PO PRN (07:15)
[2017-10-28 07:29] VITALS: TEMP 98
[2017-10-28] MEDS: PRENATAL VITAMINS W/ FOLIC ACID TABLET (FP) PO SCH (10:05)
[2017-10-28] MEDS: NICOTINE 14 MG/24 HOURS TOPICAL PATCH TD SCH (10:05)
[2017-10-28] MEDS: DULoxetine HCL 60 MG CAPSULE.DR PO SCH (10:05)
[2017-10-28] MEDS: PSYLLIUM 5.85 GM PACKET PO SCH (10:06)
[2017-10-28] MEDS: HYDROCORTISONE 0.5% TOPICAL CREAM 30 GM TUBE TP SCH ×2 (10:07→22:07)
[2017-10-28] MEDS: MAGNESIUM HYDROX 2400MG/30ML ORAL SUSPENSION 30 ML CUP PO PRN (13:57)
[2017-10-28] MEDS: THIAMINE HCL 100 MG TABLET (FP) PO SCH (22:04)
[2017-10-28] MEDS: MIRTAZAPINE 15 MG TABLET (FP) PO SCH (22:05)
[2017-10-28] MEDS: SENNOSIDES 8.6MG TABLET (FP) PO SCH (22:05)
[2017-10-28] MEDS: traZODone HCL 50 MG TABLET (FP) PO SCH (22:05)
[2017-10-28] MEDS: DOCUSATE SODIUM 100 MG CAPSULE (FP) PO SCH (22:05)
[2017-10-29] MEDS: GABAPENTIN 300 MG CAPSULE (FP) PO SCH ×3 (06:44→21:27)
[2017-10-29] MEDS: ACAMPROSATE CALCIUM 333 MG TABLET.DR PO SCH ×3 (06:44→21:25)
[2017-10-29] MEDS: COLLOIDAL OATMEAL 1 BAR EACH TP PRN (07:36)
[2017-10-29] MEDS: PRENATAL VITAMINS W/ FOLIC ACID TABLET (FP) PO SCH (10:13)
[2017-10-29] MEDS: HYDROCORTISONE 0.5% TOPICAL CREAM 30 GM TUBE TP SCH ×2 (10:13→23:03)
[2017-10-29] MEDS: NICOTINE 14 MG/24 HOURS TOPICAL PATCH TD SCH (10:13)
[2017-10-29] MEDS: PSYLLIUM 5.85 GM PACKET PO SCH (10:14)
[2017-10-29] MEDS: DULoxetine HCL 60 MG CAPSULE.DR PO SCH (10:14)
--- NOTE | 2017-10-29 11:45 | PN ---
Psychiatric Progress Note Vital Signs: Vital Signs Period Temp Pulse Resp BP Sys/Pathak Pulse Ox Last 24 Hr 98.0 F 90 18-18 95/64 Date of Session: 10/29/17 Chief Complaint:: Discharge HPI: Pt. admitted to for cocaine and alcohol dependence. ROS: Unremarkable Current Medications: Active Medications Generic Name Dose Route Start Last Admin Trade Name Freq PRN Reason Stop Dose Admin Acamprosate 666 mg 10/17/17 22:00 10/29/17 06:44 Campral - PO 666 mg TID GISSELLE Administration Acetaminophen 650 mg 10/16/17 16:20 Tylenol - PO Q4H PRN FEVER Al Hydroxide/Mg Hydroxide 30 ml 10/16/17 16:20 Mylanta Oral Suspension - PO Q6H PRN DYSPEPSIA Colloidal Oatmeal 1 applic 10/19/17 09:36 10/29/17 07:36 Aveeno Soap - TP 1 applic DAILY PRN Administration HYGEINE Docusate Sodium 300 mg 10/16/17 22:00 10/28/17 22:05 Colace - PO 300 mg HS GISSELLE Administration Duloxetine HCl 60 mg 10/18/17 10:00 10/29/17 10:14 Cymbalta - PO 60 mg DAILY GISSELLE Administration Eucalyptus/Menthol/Phenol/Sorbitol 1 each 10/16/17 16:20 Cepastat Lozenge - MM Q4H PRN SORE THROAT Gabapentin 300 mg 10/16/17 22:00 10/29/17 06:44 Neurontin - PO 300 mg TID GISSELLE Administration Guaifenesin 10 ml 10/16/17 16:20 Robitussin Dm - PO Q6H PRN COUGH Hydrocortisone 1 applic 10/19/17 10:00 10/29/17 10:13 Hytone 0.5% Cream - TP Not Given BID GISSELLE Hydroxyzine Pamoate 50 mg 10/16/17 16:20 10/28/17 07:15 Vistaril - PO 50 mg Q4H PRN Administration AGITATION Ibuprofen 400 mg 10/16/17 16:20 10/25/17 07:08 Motrin - PO 400 mg Q6H PRN Administration Pain Level 4-6 Loperamide HCl 4 mg 10/16/17 16:20 Imodium - PO Q6H PRN DIARRHEA Magnesium Citrate 300 ml 10/16/17 16:20 Citroma - PO Q48H PRN CONSTIPATION Magnesium Hydroxide 30 ml 10/16/17 16:20 10/28/17 13:57 Milk Of Magnesia - PO 30 ml DAILY PRN Administration CONSTIPATION Melatonin 5 mg 10/16/17 22:00 Melatonin PO HS PRN INSOMNIA Mirtazapine 45 mg 10/17/17 22:00 10/28/17 22:05 Remeron - PO 45 mg HS GISSELLE Administration Nicotine 14 mg 10/17/17 10:00 10/29/17 10:13 Nicoderm Patch - TD 14 mg DAILY GISSELLE Administration Nicotine Polacrilex 2 mg 10/16/17 16:20 Nicorette Gum - BUC Q2H PRN NICOTINE REPLACEMENT RX Multivit/Folic Acid/Iron 1 tab 10/17/17 10:00 10/29/17 10:13 Vitamins (Sjr) - PO 1 tab DAILY GISSELLE Administration Pseudoephedrine/Triprolidine 1 combo 10/16/17 16:20 Actifed - PO TID PRN NASAL CONGESTION Psyllium Hydrophilic Mucilloid 5.85 gm 10/23/17 10:00 10/29/17 10:14 Metamucil (Sugar-Free) - PO 5.85 gm DAILY GISSELLE Administration Senna 2 tab 10/20/17 22:00 10/28/17 22:05 Senna - PO 2 tab HS GISSELLE Administration Thiamine HCl 100 mg 10/16/17 22:00 10/28/17 22:04 Vitamin B1 - PO 100 mg HS GISSELLE Administration Trazodone HCl 150 mg 10/17/17 22:00 10/28/17 22:05 Desyrel - PO 150 mg HS GISSELLE Administration Medication(s) Change(s): No. Current Side Effect: No Lab tests ordered: No Lab tests reviewed: Yes Provider note:: Patient will complete the rehabilitation program on 10/30/17. She has met the treatment goals and will continue to address her issues at the [facility] outpatient treatment program. She is able to focus on insights gained in treatment including importance to changing attitude and states she will be able to seek additional assistance through her support system to maintain recovery.A 30 day supply of trazodone 150mg +Mirtazapine 45mg + Gabapentin 300mg TID + Cybalta 60mg + Campral 666 TID was electrically sent to [facility] [facility] at [address] [place] [address] # [phone] Pt. is stable for discharge. Total face to face time:: 35 Mental Status Exam - Mental Status Exam Alert and Oriented to: Time, Place, Person Cognitive Function: Good Patient Appearance: Well Groomed Mood: Hopeful Affect: Appropriate, Mood Congruent Patient Behavior: Appropriate, Cooperative Speech Pattern: Clear, Appropriate Voice Loudness: Normal Thought Process: Intact Thought Disorder: Not Present Hallucinations: Denies Suicidal Ideation: Denies Homicidal Ideation: Denies Insight/Judgement: Good Sleep: Well Appetite: Good Muscle strength/Tone: Normal Gait/Station: Normal Psychiatric Treatment Plan - Problem List (1) Alcohol dependence Current Visit: Yes (2) Bipolar II disorder Current Visit: Yes (3) Cocaine dependence Current Visit: Yes (4) Iron deficiency anemia Current Visit: Yes Qualifiers: Iron deficiency anemia type: unspecified iron deficiency Qualified Code(s) : D50.9 - Iron deficiency anemia, unspecified
[2017-10-29] MEDS: THIAMINE HCL 100 MG TABLET (FP) PO SCH (21:25)
[2017-10-29] MEDS: traZODone HCL 50 MG TABLET (FP) PO SCH (21:26)
[2017-10-29] MEDS: DOCUSATE SODIUM 100 MG CAPSULE (FP) PO SCH (21:26)
[2017-10-29] MEDS: MIRTAZAPINE 15 MG TABLET (FP) PO SCH (21:26)
[2017-10-29] MEDS: SENNOSIDES 8.6MG TABLET (FP) PO SCH (21:26)
[2017-10-29] MEDS: hydrOXYzine PAMOATE 50 MG CAPSULE (FP) PO PRN (23:05)
[2017-10-30] MEDS: ACAMPROSATE CALCIUM 333 MG TABLET.DR PO SCH (06:41)
[2017-10-30] MEDS: GABAPENTIN 300 MG CAPSULE (FP) PO SCH (06:42)
[2017-10-30 07:14] VITALS: BP 102/75; PULSE 82
[2017-10-30] MEDS: DULoxetine HCL 60 MG CAPSULE.DR PO SCH (09:11)
[2017-10-30] MEDS: PRENATAL VITAMINS W/ FOLIC ACID TABLET (FP) PO SCH (09:11)
[2017-10-30] MEDS: HYDROCORTISONE 0.5% TOPICAL CREAM 30 GM TUBE TP SCH (09:12)
[2017-10-30] MEDS: PSYLLIUM 5.85 GM PACKET PO SCH (09:12)
[2017-10-30] MEDS: NICOTINE 14 MG/24 HOURS TOPICAL PATCH TD SCH (09:13)
== END 2017-10-30 09:45 | disposition home or self-care (01) | DRG 772 ==
LOC: YASAS 11:00 → Y3E 11:01
PROVIDERS: ADMIT Psychiatry & Neurology Psychiatry; ATTEND Psychiatry & Neurology Psychiatry
PROC: HZ42ZZZ Group Counseling for Substance Abuse Treatment, Cognitive-Behavioral (ICD-10-PCS; principal; 2017-10-16)
DX: F10.20 Alcohol dependence, uncomplicated (principal); F14.20 Cocaine dependence, uncomplicated; F31.81 Bipolar II disorder; D50.9 Iron deficiency anemia, unspecified; N76.0 Acute vaginitis; B96.89 Other specified bacterial agents as the cause of diseases classified elsewhere; K59.01 Slow transit constipation; Z98.890 Other specified postprocedural states; Z98.84 Bariatric surgery status
CPT/HCPCS: 36415; 80048; 87389; 87491; 87591; 87661

== ENCOUNTER → 2017-11-12 | Emergency (ER) | payer OTHER ==
[2017-11-12 19:01] VITALS: BP 102/56; PULSE 88; TEMP 97.4; BMI 31.1
--- NOTE | 2017-11-12 19:02 | PDOC ---
History of Present Illness - General History Source: Patient Exam Limitations: No Limitations, Intoxication - History of Present Illness Initial Comments: 11/12/17 21:21 The patient is a 42 year old female with past medical history of anemia, asthma , depression and bipolar disorder Is brought to the emergency department from [facility] due to alcohol intoxication. The patient was checked into [facility] for detox for alcohol and cocaine The patient reports she had too much to drink and reports the use of cocaine via smoking. The patient reports a friend gave her something that dissolves under her tongue. The patient had an BAL of .384 earlier today. The patient denies any recent fall or head injuries. Denies injecting any recreational drugs. Denies chest pain, SOB, headache. Denies any cough, nausea, vomiting, diarrhea and constipation Denies any dysuria, hematuria, or frequency or urgency to urinate. Social History: reports the use of alcohol and cocaine. Denies the use of meth, heroin, and marijuana. Allergies: NKDA Surg History: Gastric bypass (2002) and carpal tunnel left wrist. PCP: Anneliese <Glenis Gutierrez - Last Filed: 11/12/17 21:36> <Meredith Murillo - Last Filed: 11/13/17 02:07> - General Chief Complaint: Alcohol intoxication Stated Complaint: INTOXICATED Time Seen by Provider: 11/12/17 18:56 Past History <Gelnis Gutierrez - Last Filed: 11/12/17 21:36> - Past Medical History Anemia: Yes Asthma: Yes Cancer: No Cardiac Disorders: No CVA: No COPD: No CHF: No Dementia: No Diabetes: No GI Disorders: No Disorders: No HTN: No Hypercholesterolemia: No Kidney Stones: No Liver Disease: No Psychiatric Problems: Yes (depression, anxiety) Seizures: No Thyroid Disease: No - Surgical History Abdominal Surgery: Yes (gastric bypass 2002) Appendectomy: No Cardiac Surgery: No Cholecystectomy: No Lung Surgery: No Neurologic Surgery: No Orthopedic Surgery: No - Reproductive History PID: No - Immunization History Immunization Up to Date: Yes - Suicide/Smoking/Psychosocial Hx Smoking Status: Yes Smoking History: Current every day smoker Have you smoked in the past 12 months: Yes Number of Cigarettes Smoked Daily: 20 Cigars Per Day: 0 'Breaking Loose' booklet given: 11/12/17 Hx Alcohol Use: Yes (drinking since 28 yo,1 pint of idania) Drug/Substance Use Hx: Yes (cocaine since 40 yo,on and off) Substance Use Type: Alcohol, Cocaine Hx Substance Use Treatment: Yes (completed this program in May 2017) <Meredith Murillo - Last Filed: 11/13/17 02:07> - Past Medical History Allergies/Adverse Reactions: Allergies Allergy/AdvReac Type Severity Reaction Status Date / Time No Known Allergies Allergy Verified 10/13/17 16:14 Home Medications: Ambulatory Orders Docusate Sodium [Colace -] 300 mg PO HS capsule 10/16/17 Duloxetine HCl [Cymbalta] 40 mg PO DAILY 10/16/17 Melatonin 5 mg PO HS PRN tab 10/16/17 Potassium Chloride [K-Dur -] 20 meq PO BID tablet.er 10/16/17 Sennosides [Senna -] 2 tab PO HS tablet 10/16/17 Trazodone HCl 200 mg PO HS 10/16/17 metroNIDAZOLE 0.75% VAG. GEL [Metrogel 0.75% Vaginal Gel -] 1 applic VG HS tube 10/16/17 Acamprosate Calcium [Campral -] 666 mg PO TID #90 tablet. 10/29/17 Duloxetine HCl [Cymbalta -] 60 mg PO DAILY #30 capsule. 10/29/17 Gabapentin [Neurontin -] 300 mg PO TID #90 capsule 10/29/17 Mirtazapine [Remeron -] 45 mg PO HS #90 tablet 10/29/17 traZODone HCL [Desyrel -] 150 mg PO HS #90 tablet 10/29/17 Psyllium [Metamucil (Sugar-Free) -] 5.85 gm PO DAILY #10 packet 10/30/17 Sennosides [Senna -] 2 tab PO HS #20 tablet 10/30/17 Review of Systems - Review of Systems Able to Perform ROS?: Yes Comments:: 11/12/17 21:24 GENERAL/CONSTITUTIONAL: (+) Intoxicated. . HEAD, EYES, EARS, NOSE AND THROAT: No change in vision. No ear pain or discharge. No sore throat. CARDIOVASCULAR: No chest pain or shortness of breath. RESPIRATORY: No cough, wheezing, or hemoptysis. GASTROINTESTINAL: No nausea, vomiting, diarrhea or constipation. GENITOURINARY: No dysuria, frequency, or change in urination. MUSCULOSKELETAL: No joint or muscle swelling or pain. No neck or back pain. SKIN: No rash NEUROLOGIC: No headache, vertigo, loss of consciousness, or change in strength/ sensation. ENDOCRINE: No increased thirst. No abnormal weight change. HEMATOLOGIC/LYMPHATIC: No anemia, easy bleeding, or history of blood clots. ALLERGIC/IMMUNOLOGIC: No hives or skin allergy. <Glenis Gutierrez - Last Filed: 11/12/17 21:36> *Physical Exam - Vital Signs Last Vital Signs Temp Pulse Resp BP Pulse Ox 97.4 F L 88 16 102/56 100 11/12/17 18:56 11/12/17 18:56 11/12/17 18:56 11/12/17 18:56 11/12/17 18:56 - Physical Exam Comments: 11/12/17 21:24 GENERAL: Awake, alert, and fully oriented to patient, place and time. Alcohol smell on breath. HEAD: No signs of trauma EYES: PERRLA, EOMI, sclera anicteric, conjunctiva clear ENT: Auricles normal inspection, hearing grossly normal, nares patent, oropharynx clear without exudates. Moist mucosa NECK: Normal ROM, supple, no lymphadenopathy, JVD, or masses LUNGS: Breath sounds equal, clear to auscultation bilaterally. No wheezes, and no crackles HEART: Regular rate and rhythm, normal S1 and S2, no murmurs, rubs or gallops ABDOMEN: Soft, nontender, normoactive bowel sounds. No guarding, no rebound. No masses EXTREMITIES: Normal range of motion, no edema. No clubbing or cyanosis. No cords, erythema, or tenderness NEUROLOGICAL: (+) Slurred speech. Cranial nerves II through XII grossly intact. SKIN: Warm, Dry, normal turgor, no rashes or lesions noted. <Glenis Gutierrez - Last Filed: 11/12/17 21:36> ED Treatment Course - LABORATORY CBC & Chemistry Diagram: 11/12/17 20:00 11/12/17 20:00 - ADDITIONAL ORDERS Additional order review: Laboratory Results 11/12/17 11/12/17 20:00 20:00 Sodium 143 Potassium 3.8 Chloride 111 H Carbon Dioxide 25 Anion Gap 7 L BUN 11 Creatinine 0.6 Creat Clearance w eGFR > 60 Random Glucose 106 Calcium 7.4 L Magnesium 2.2 Total Bilirubin 0.2 D AST 23 ALT 23 Alkaline Phosphatase 74 Total Protein 7.1 Albumin 3.7 Alcohol, Quantitative 299.14 H* 11/12/17 20:00 RBC 4.06 MCV 66.1 L MCHC 30.8 L RDW 21.7 H MPV 6.7 L D Neutrophils % 53.8 D Lymphocytes % 38.4 D Monocytes % 5.4 Eosinophils % 1.0 Basophils % 1.4 <Glenis Gutierrez - Last Filed: 11/12/17 21:36> - LABORATORY CBC & Chemistry Diagram: 11/12/17 20:00 11/12/17 20:00 <Meredith Murillo - Last Filed: 11/13/17 02:07> Medical Decision Making - Medical Decision Making 11/12/17 19:59 a/p: 42yo female sent from [facility] for eval of intoxication and confusion -pt arrives intoxicated, admits to drinking etoh today and "taking something under my tongue" -pt with a hx of smoking cocaine -states she smoked recently -denies injecting drugs -denies somatic complaints - pt states she wants to deal with her problems and get rehab -pt called in by [facility] who stated the patient can follow up as an outpt, was released from detox and rehab 2 weeks ago - does not qualify for detox again 11/12/17 20:01 will check labs, allow patient to metabolize will monitor and reassess smell of etoh on her breath, ambulates with a steady gait 11/12/17 21:26 pt with etoh 299 11/12/17 22:02 case discussed with detox LABORER [facility]AGS who states pt received detox less than 30days ago and does not qualify for detox today. she needs to go to the outpt program 11/13/17 02:06 pt eloped from the ED. <Meredith Murillo - Last Filed: 11/13/17 02:07> *DC/Admit/Observation/Transfer - Attestations Scribe Attestion: 11/12/17 21:24 Documentation prepared by Glenis Gutierrez, acting as nuclear medical tech for Meredith Murillo DO. <Glenis Gutierrez - Last Filed: 11/12/17 21:36> - Discharge Dispostion Admit: No - Attestations Physician Attestion: 11/13/17 02:07 I, Dr. Meredith Murillo, DO, attest that this document has been prepared under my direction and personally reviewed by me in its entirety. I further attest, that it accurately reflects all work, treatment, procedures and medical decision -making performed by me. <Meredith Murillo - Last Filed: 11/13/17 02:07> Diagnosis at time of Disposition: Alcohol intoxication - Discharge Dispostion Disposition: ELOPED Condition at time of disposition: Unchanged/Unknown - Referrals Referrals: Betito Coy MD [Primary Care Provider] -
[2017-11-12 20:14] LABS: BASO % 1.4 % (0-2.0); HEMATOCRIT 26.8 % (32.4-45.2); HEMOGLOBIN 8.3 GM/dL (10.7-15.3); LYMPH % 38.4 % (8-40); MCH 20.4 pg (25.7-33.7); MCHC 30.8 g/dl (32.0-36.0); MEAN CELL VOLUME 66.1 fl (80-96); MEAN PLT VOLUME 6.7 fl (7.5-11.1); MONO % 5.4 % (3.8-10.2); NEUT % 53.8 % (42.8-82.8); PLATELET COUNT 337 K/MM3 (134-434); RBC 4.06 M/mm3 (3.60-5.2); RDW 21.7 % (11.6-15.6); WHITE BLOOD COUNT 8.7 K/mm3 (4.0-10.0)
[2017-11-12 20:39] LABS: ADD RBC MORPHOLOGY YES
[2017-11-12 21:15] LABS: ALBUMIN 3.7 g/dl (3.4-5.0); ALK PHOS 74 U/L (45-117); ANION GAP 7 (8-16); BILIRUBIN,TOTAL 0.2 mg/dL (0.2-1.0); BLOOD UREA NITROGEN 11 mg/dL (7-18); CALCIUM 7.4 mg/dL (8.5-10.1); CHLORIDE 111 mmol/L (98-107); CO2 25 mmol/L (21-32); CREATININE 0.6 mg/dL (0.55-1.02); GLUCOSE,RANDOM 106 mg/dL (74-106); MAGNESIUM 2.2 mg/dL (1.8-2.4); POTASSIUM 3.8 mmol/L (3.5-5.1); SGOT/AST 23 U/L (15-37); SGPT/ALT 23 U/L (12-78); SODIUM 143 mmol/L (136-145); TOT PROT 7.1 g/dl (6.4-8.2)
[2017-11-12 21:29] LABS: ANISOCYTOSIS 2+; MACROCYTOSIS 1+; PLATELET ESTIMATE ADEQUATE
[2017-11-12 22:25] LABS: URINE APPEARANCE SLCLOUDY; URINE BILIRUBIN NEGATIVE (<2.0 mg/dL); URINE BLOOD 1+ (NEGATIVE); URINE COLOR YELLOW; URINE GLUCOSE (UA) NEGATIVE (NEGATIVE); URINE KETONE NEGATIVE (NEGATIVE); URINE LEUK ESTERASE NEGATIVE (NEGATIVE); URINE NITRITE NEGATIVE (NEGATIVE); URINE PROTEIN NEGATIVE (NEGATIVE); URINE UROBILINOGEN NEGATIVE mg/dL (0.2-1.0)
[2017-11-12 22:28] LABS: EPI CELLS RARE /HPF (FEW); URINE MUCUS FEW
== END | disposition left against medical advice (07) ==
LOC: JER 18:40
DX: F10.120 Alcohol abuse with intoxication, uncomplicated (principal); Y90.8 Blood alcohol level of 240 mg/100 ml or more; J45.909 Unspecified asthma, uncomplicated; D64.9 Anemia, unspecified; F31.9 Bipolar disorder, unspecified
CPT/HCPCS: 36415; 80053; 80307; 81003; 81015; 83735; 84702; 85025; 99282-25

== ENCOUNTER 2017-11-18 16:01 | Inpatient (IN) | payer OTHER ==
[2017-11-18] MEDS ORDERED: MENTHOL/PHENOL 1 EACH UD MM PRN (16:48)
[2017-11-18] MEDS ORDERED: IBUPROFEN 400 MG TABLET (FP) PO PRN (16:48)
[2017-11-18] MEDS ORDERED: MAGNESIUM HYDROX 2400MG/30ML ORAL SUSPENSION 30 ML CUP PO PRN (16:48)
[2017-11-18] MEDS ORDERED: P-EPHED 60MG/TRIPROLIDI 2.5MG TABLET PO PRN (16:48)
[2017-11-18] MEDS ORDERED: LOPERAMIDE HCL 2 MG CAPSULE PO PRN (16:48)
[2017-11-18] MEDS ORDERED: ACETAMINOPHEN 325 MG TABLET (FP) PO PRN (16:48)
[2017-11-18] MEDS ORDERED: chlordiazePOXIDE HCL 25 MG CAPSULE PO PRN (16:48)
[2017-11-18] MEDS ORDERED: MAGNESIUM CITRATE 300 ML BOTTLE PO PRN (16:48)
[2017-11-18] MEDS ORDERED: hydrOXYzine PAMOATE 50 MG CAPSULE (FP) PO PRN (16:48)
[2017-11-18] MEDS ORDERED: NICOTINE POLACRILEX 2 MG GUM BC PRN (16:48)
[2017-11-18] MEDS ORDERED: chlordiazePOXIDE HCL 25 MG CAPSULE PO ONE (16:48)
[2017-11-18] MEDS ORDERED: MAG HYDROX/AL HYDROX/SIMETH 30 ML UNIT-DOSE CUP PO PRN (16:48)
[2017-11-18] MEDS ORDERED: guaiFENesin/D-METHORPHAN HB 10 ML UNIT-DOSE CUPS PO PRN (16:48)
[2017-11-18 16:51] VITALS: BP 131/84; PULSE 142; TEMP 99.4; BMI 31.8
--- NOTE | 2017-11-18 17:06 | HP ---
CIWA Score - CIWA Score Nausea/Vomitin-No Nausea/No Vomiting Muscle Tremors: 3 Anxiety: 4-Mod. Anxious/Guarded Agitation: 6 Paroxysmal Sweats: 2 Orientation: 1-Uncertain about Date Tacttile Disturbances: 2-Mild Itch/Numbness/Burn (right hand numbness) Auditory Disturbances: 0-None Visual Disturbances: 0-None Headache: 0-None Present CIWA-Ar Total Score: 18 Admission ROS S - HPI Chief Complaint: "I feel sick, I need to stop selling my body" Allergies/Adverse Reactions: Allergies Allergy/AdvReac Type Severity Reaction Status Date / Time No Known Allergies Allergy Verified 10/13/17 16:14 History of Present Illness: Patient is 42 yo female nicotine and alcohol dependence is here seeking detox. Has multiple admissions to [facility]. Currently smokes 15 cigarettes per day. PMHX: depression, anxiety, insomnia, bipolar d/o, low back pain and constipation. Denies presently suicidal / homicidal ideation or suicide attempts. Reports yesterday she felt like jumping off the bridge but her friend helped her change her thoughts. Patient was evaluated at the [facility] on 11/12/17 for alcohol intoxication. Last detox and rehab at [facility] 10/13/17 - 10/30/17. Longest period of 2.5 weeks. Denies any hx of seizures related to alcohol, reports blackouts when drinking. Exam Limitations: No Limitations - Ebola screening Have you traveled outside of the country in the last 21 days: No Have you had contact with anyone from an Ebola affected area: No Have you been sick,other than usual withdrawal symptoms: No Do you have a fever: No - Review of Systems Constitutional: Chills, Loss of Appetite, Changes in sleep EENT: reports: No Symptoms Reported Respiratory: reports: No Symptoms reported Cardiac: reports: No Symptoms Reported GI: reports: Constipated, Poor Appetite, Poor Fluid Intake : reports: No Symptoms Reported Musculoskeletal: reports: Back Pain Integumentary: reports: No Symptoms Reported Neuro: reports: Numbness (right hand) Endocrine: reports: Increased Thirst Hematology: reports: Anemia Psychiatric: reports: Orientated x3, Agitated, Anxious Other Systems: Reviewed and Negative Patient History - Patient Medical History Hx Anemia: Yes Hx Asthma: No Hx Chronic Obstructive Pulmonary Disease (COPD): No Hx Cancer: No Hx Cardiac Disorders: No Hx Congestive Heart Failure: No Hx Hypertension: No Hx Hypercholesterolemia: No Hx Pacemaker: No HX Cerebrovascular Accident: No Hx Seizures: No Hx Dementia: No Hx Diabetes: No Hx Gastrointestinal Disorders: No Hx Liver Disease: No Hx Genitourinary Disorders: No Hx Sexually Transmitted Disorders: No Hx Renal Disease (ESRD): No Hx Thyroid Disease: No Hx Human Immunodeficiency Virus (HIV): No (reports last tested September 2017) Hx Hepatitis C: No Hx Depression: Yes Hx Suicide Attempt: No Hx Bipolar Disorder: Yes Hx Schizophrenia: No - Patient Surgical History Past Surgical History: Yes Hx Neurologic Surgery: No Hx Cataract Extraction: No Hx Cardiac Surgery: No Hx Lung Surgery: No Hx Breast Surgery: No Hx Breast Biopsy: No Hx Abdominal Surgery: Yes (gastric bypass 2002) Hx Appendectomy: No Hx Cholecystectomy: No Hx Genitourinary Surgery: No Hx Section: No Hx Orthopedic Surgery: No Hx Hysterectomy: No Other Surgical History: Carpal tunnel syndrome both hands Anesthesia Reaction: No - PPD History Previous Implant?: Yes Documented Results: Negative w/proof Implanted On Prior [facility] Admission?: Yes Date: 05/28/17 Results: 0mm PPD to be Administered?: No - Reproductive History Last Menstrual Period: 11/15/17 Patient : No - Smoking Cessation Smoking history: Current every day smoker Have you smoked in the past 12 months: Yes Aproximately how many cigarettes per day: 15 Cigars Per Day: 0 Hx Chewing Tobacco Use: No Initiated information on smoking cessation: Yes 'Breaking Loose' booklet given: 11/18/17 - Substance & Tx. History Hx Alcohol Use: Yes Hx Substance Use: Yes Substance Use Type: Alcohol, Cocaine Hx Substance Use Treatment: Yes ([facility] detox and rehab 10/13/17 -10/30/17) - Substances Abused Alcohol Route: Oral Frequency: Daily Amount used: 1 gallon idania Age of first use: 28 Date of Last Use: 11/18/17 Crack Route: Smoking Frequency: 1-2 times per week Amount used: $200 Age of first use: 40 Date of Last Use: 11/14/17 Family Disease History - Family Disease History Family Disease History: [place]: Father (), Other: Father Admission Physical Exam BHS - Vital Signs Vital Signs: Vital Signs - 24 hr 11/18/17 16:47 Temperature 99.4 F Pulse Rate 142 H Respiratory 20 Rate Blood Pressure 131/84 - Physical General Appearance: Yes: Disheveled, Moderate Distress, Alcohol on Breath, Irritable, Anxious, Other (pacing) HEENTM: Yes: EOMI, Hearing grossly Normal, Normal ENT Inspection, Normocephalic , Normal Voice, NILA, Pharynx Normal, Tm's normal Respiratory: Yes: Chest Non-Tender, Lungs Clear, Normal Breath Sounds, No Respiratory Distress, No Accessory Muscle Use Neck: Yes: Within Normal Limits Breast: Yes: Breast Exam Deferred Cardiology: Yes: Regular Rhythm, S1, S2, Tachycardia Abdominal: Yes: Normal Bowel Sounds, Non Tender, Flat, Soft Genitourinary: Yes: Within Normal Limits Back: Yes: Normal Inspection Musculoskeletal: Yes: full range of Motion, Gait Steady, Pelvis Stable, Back pain Extremities: Yes: Normal Capillary Refill, Normal Inspection, Normal Range of Motion, Non-Tender Neurological: Yes: combine mechanic II-XII NML intact, Fully Oriented, Alert, Motor Strength 5/5, Depressed Affect, Other (paresthesia right hand, restless and anxious) Integumentary: Yes: Normal Color, Warm, Moist Lymphatic: Yes: Within Normal Limits - Diagnostic (1) Anxious appearance Current Visit: Yes Status: Acute (2) Alcohol dependence with uncomplicated withdrawal Current Visit: Yes Status: Acute (3) Constipation Current Visit: Yes Status: Chronic Qualifiers: Constipation type: slow transit constipation Qualified Code(s): K59.01 - Slow transit constipation (4) Chronic low back pain Current Visit: Yes Status: Chronic Qualifiers: Back pain laterality: midline Sciatica presence: unspecified whether sciatica present Qualified Code(s): M54.5 - Low back pain; G89.29 - Other chronic pain; G89.29 - Other chronic pain (5) Cocaine dependence Current Visit: Yes Status: Chronic Qualifiers: Substance use status: uncomplicated Qualified Code(s): F14.20 - Cocaine dependence, uncomplicated (6) Iron deficiency anemia Current Visit: Yes Status: Chronic Qualifiers: Iron deficiency anemia type: unspecified iron deficiency Qualified Code(s) : D50.9 - Iron deficiency anemia, unspecified (7) Lower back pain Current Visit: Yes Status: Chronic Qualifiers: Chronicity: chronic Sciatica presence: with sciatica (8) Mood disorder Current Visit: Yes Status: Suspected (9) Tachycardia with heart rate 141-160 beats per minute Current Visit: Yes Status: Acute Comment: HR 142 Cleared for Admission [facility] - Detox or Rehab [facility] Level of Care: Medically Managed Detox Regimen/Protocol: Librium [facility] Breath Alcohol Content Breath Alcohol Content: 0.282 Urine Pregancy Test - Result Urine Test Results: Negative- NO Line Present Urine Drug Screen - Results Drug Screen Negative: No Urine Drug Screen Results: BZO-Benzodiazepines
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
--- NOTE | 2017-11-18 21:02 | DS ---
[facility] Detox Discharge Summary Admission Date: 11/18/17 Discharge Date: 11/18/17 - History Present History: Alcohol Dependence, Cocaine Dependence Additional Comments: Patient administratively discharge. Patient stable. Patient to follow up with ED or urgent care for worsening symptoms. Pertinent Past History: Vital Signs Temperature 99.4 F 11/18/17 16:47 Pulse Rate 142 H 11/18/17 16:47 Respiratory Rate 20 11/18/17 16:47 Blood Pressure 131/84 11/18/17 16:47 O2 Sat by Pulse Oximetry (%) - Physical Exam Results Vital Signs: Vital Signs Temperature 99.4 F 11/18/17 16:47 Pulse Rate 142 H 11/18/17 16:47 Respiratory Rate 20 11/18/17 16:47 Blood Pressure 131/84 11/18/17 16:47 O2 Sat by Pulse Oximetry (%) - Medication Discharge Medications: Ambulatory Orders Docusate Sodium [Colace -] 300 mg PO HS capsule 10/16/17 Trazodone HCl 200 mg PO HS 10/16/17 Duloxetine HCl [Cymbalta -] 60 mg PO DAILY #30 capsule.dr 10/29/17 Gabapentin [Neurontin -] 300 mg PO TID #90 capsule 10/29/17 Mirtazapine [Remeron -] 45 mg PO HS #90 tablet 10/29/17 traZODone HCL [Desyrel -] 150 mg PO HS #90 tablet 10/29/17 Sennosides [Senna -] 2 tab PO HS #20 tablet 10/30/17 - Diagnosis (1) Anxious appearance Current Visit: Yes Status: Acute (2) Alcohol dependence with uncomplicated withdrawal Current Visit: Yes Status: Acute (3) Constipation Current Visit: Yes Status: Chronic Qualifiers: Constipation type: slow transit constipation Qualified Code(s): K59.01 - Slow transit constipation (4) Chronic low back pain Current Visit: Yes Status: Chronic Qualifiers: Back pain laterality: midline Sciatica presence: unspecified whether sciatica present Qualified Code(s): M54.5 - Low back pain; G89.29 - Other chronic pain; G89.29 - Other chronic pain (5) Cocaine dependence Current Visit: Yes Status: Chronic Qualifiers: Substance use status: uncomplicated Qualified Code(s): F14.20 - Cocaine dependence, uncomplicated (6) Iron deficiency anemia Current Visit: Yes Status: Chronic Qualifiers: Iron deficiency anemia type: unspecified iron deficiency Qualified Code(s) : D50.9 - Iron deficiency anemia, unspecified (7) Lower back pain Current Visit: Yes Status: Chronic Qualifiers: Chronicity: chronic Sciatica presence: with sciatica (8) Mood disorder Current Visit: Yes Status: Suspected (9) Tachycardia with heart rate 141-160 beats per minute Current Visit: Yes Status: Acute - AMA Did Patient Leave Against Medical Advice: No
[2017-11-18] MEDS ORDERED: THIAMINE HCL 100 MG TABLET (FP) PO SCH (22:00)
[2017-11-18] MEDS ORDERED: MELATONIN 5 MG TABLETS PO PRN (22:00)
[2017-11-18] MEDS ORDERED: chlordiazePOXIDE HCL 25 MG CAPSULE PO SCH (23:00)
[2017-11-19] MEDS ORDERED: PRENATAL VITAMINS W/ FOLIC ACID TABLET (FP) PO SCH (10:00)
[2017-11-19] MEDS ORDERED: NICOTINE 14 MG/24 HOURS TOPICAL PATCH TD SCH (10:00)
[2017-11-19] MEDS ORDERED: chlordiazePOXIDE HCL 25 MG CAPSULE PO SCH (23:00)
[2017-11-20] MEDS ORDERED: chlordiazePOXIDE 5 MG CAPSULE PO SCH (23:00)
[2017-11-21] MEDS ORDERED: chlordiazePOXIDE HCL 10 MG CAPSULE PO SCH (23:00)
== END 2017-11-18 17:35 | disposition left against medical advice (07) | DRG 774 ==
LOC: YASAS 16:01 → Y6N 17:06
PROVIDERS: ADMIT Internal Medicine; ATTEND Internal Medicine
DX: F10.230 Alcohol dependence with withdrawal, uncomplicated (principal); F14.20 Cocaine dependence, uncomplicated; F17.210 Nicotine dependence, cigarettes, uncomplicated; F91.8 Other conduct disorders; F41.9 Anxiety disorder, unspecified; F39 Unspecified mood [affective] disorder; K59.01 Slow transit constipation; M54.5 Low back pain; G89.29 Other chronic pain; D50.9 Iron deficiency anemia, unspecified; R00.0 Tachycardia, unspecified; Y04.0XXA Assault by unarmed brawl or fight, initial encounter; Y93.89 Activity, other specified; Y92.239 Unspecified place in hospital as the place of occurrence of the external cause

== ENCOUNTER 2017-12-10 19:24 | Inpatient (IN) | payer OTHER ==
[2017-12-10 20:24] VITALS: BMI 30.7
[2017-12-10] MEDS ORDERED: MELATONIN 5 MG TABLETS PO PRN (22:00)
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
[2017-12-10] MEDS ORDERED: P-EPHED 60MG/TRIPROLIDI 2.5MG TABLET PO PRN (22:34)
[2017-12-10] MEDS ORDERED: ACETAMINOPHEN 325 MG TABLET (FP) PO PRN (22:34)
[2017-12-10] MEDS ORDERED: NICOTINE POLACRILEX 2 MG GUM BC PRN (22:34)
[2017-12-10] MEDS ORDERED: MAGNESIUM CITRATE 300 ML BOTTLE PO PRN (22:34)
[2017-12-10] MEDS ORDERED: LOPERAMIDE HCL 2 MG CAPSULE PO PRN (22:34)
[2017-12-10] MEDS ORDERED: MAG HYDROX/AL HYDROX/SIMETH 30 ML UNIT-DOSE CUP PO PRN (22:34)
[2017-12-10] MEDS ORDERED: IBUPROFEN 400 MG TABLET (FP) PO PRN (22:34)
[2017-12-10] MEDS ORDERED: guaiFENesin/D-METHORPHAN HB 10 ML UNIT-DOSE CUPS PO PRN (22:34)
[2017-12-10] MEDS ORDERED: MENTHOL/PHENOL 1 EACH UD MM PRN (22:34)
[2017-12-10] MEDS ORDERED: traZODone HCL 50 MG TABLET (FP) PO ONE (23:30)
[2017-12-11] MEDS: chlordiazePOXIDE HCL 25 MG CAPSULE PO SCH ×5 (00:47→22:23)
[2017-12-11] MEDS: hydrOXYzine PAMOATE 50 MG CAPSULE (FP) PO PRN ×4 (00:47→19:15)
[2017-12-11] MEDS: chlordiazePOXIDE HCL 25 MG CAPSULE PO PRN ×3 (02:29→12:18)
--- NOTE | 2017-12-11 08:32 | CONSULT ---
[facility] Psychiatric Consult - Data Date of interview: 12/11/17 Admission source: [facility] Identifying data: This is 42 years old female, single, mother of two, homeless, unemployed, on PA, with history of nicotine and alcohol dependence, is here seeking for detox. Reports history of Bipolar Disorder, history of psychiatric hoispitalizations as well. Substance Abuse History: Smoking history: Current every day smoker. Have you smoked in the past 12 months: Yes. Aproximately how many cigarettes per day: 15. Cigars Per Day: 0. Hx Chewing Tobacco Use: No. Initiated information on smoking cessation: Yes. 'Breaking Loose' booklet given: 12/10/17. - Substance & Tx. History. Hx Alcohol Use: Yes. Hx Substance Use: Yes. Substance Use Type : Alcohol. Hx Substance Use Treatment: Yes ([facility]). - Substances Abused. liquor. Route: Oral. Frequency: Daily. Amount used: 3 pints. Age of first use: 28. Date of Last Use: 12/10/17 Medical History: LBP, s/p gastric bypass surgery, s/p carpal tinnel surgery, Anemia hisotry Psychiatric History: Patient carries Bipolar Disorder with the most recent psychiatric admission on 2 weeks ago at [facility] due to hearing voices. Reports currently taking: Abilify 5mg poqd. Trazodone 150mg po qhs. Remeron 45mg po gqs. Cymbalta 60mg poqd. Zyprexa 5mg po qhs. Zoloft 50mg poqd Physical/Sexual Abuse/Trauma History: Denies Additional Comment: Abilify 5mg poqd. Trazodone 150mg po qhs. Remeron 45mg po gqs. Cymbalta 60mg poqd. Zyprexa 5mg po qhs. Zoloft 50mg poqd Mental Status Exam - Mental Status Exam Alert and Oriented to: Person Cognitive Function: Fair Patient Appearance: Unkempt Mood: Sad Affect: Flat Patient Behavior: Sedated Speech Pattern: Delayed Voice Loudness: Mildly Soft/Quiet Thought Process: Goal Oriented Thought Disorder: Being Controlled Hallucinations: Denies Suicidal Ideation: Denies Homicidal Ideation: Denies Insight/Judgement: Fair Sleep: Difficulty falling asleep Appetite: Weight gain Muscle strength/Tone: Mild Hypotonicity Gait/Station: Shuffling Additional Comments: Abilify 5mg poqd. Trazodone 150mg po qhs. Remeron 45mg po gqs. Cymbalta 60mg poqd. Zyprexa 5mg po qhs. Zoloft 50mg poqd Psychiatric Findings - Problem List ([place] 1, 2,3) (1) Alcohol dependence with uncomplicated withdrawal Current Visit: Yes Status: Acute (2) Nicotine dependence Current Visit: Yes Status: Chronic Qualifiers: Nicotine product type: cigarettes Substance use status: uncomplicated Qualified Code(s): F17.210 - Nicotine dependence, cigarettes, uncomplicated (3) Substance induced mood disorder Current Visit: Yes Status: Suspected (4) Alcohol intoxication Current Visit: No Status: Acute (5) Bipolar II disorder Current Visit: No Status: Chronic (6) Cocaine dependence Current Visit: No Status: Chronic Qualifiers: Substance use status: uncomplicated Qualified Code(s): F14.20 - Cocaine dependence, uncomplicated (7) Cocaine dependence Current Visit: No Status: Chronic (8) Mood disorder Current Visit: No Status: Suspected - Initial Treatment Plan Initial Treatment Plan: Abilify 5mg poqd. Trazodone 150mg po qhs. Remeron 45mg po gqs. Cymbalta 60mg poqd. Zyprexa 5mg po qhs. Zoloft 50mg poqd
[2017-12-11] MEDS ORDERED: DULoxetine HCL 60 MG CAPSULE.DR PO ONE (09:15)
[2017-12-11] MEDS ORDERED: hydrOXYzine PAMOATE 50 MG CAPSULE (FP) PO ONE (09:15)
[2017-12-11 10:00] LABS: HEMATOCRIT 26.6 % (32.4-45.2); MCH 20.2 pg (25.7-33.7); MCHC 30.2 g/dl (32.0-36.0); PLATELET COUNT 336 K/MM3 (134-434); RBC 3.97 M/mm3 (3.60-5.2); RDW 22.4 % (11.6-15.6); WHITE BLOOD COUNT 8.1 K/mm3 (4.0-10.0)
[2017-12-11 10:01] LABS: CHLORIDE 107 mmol/L (98-107); POTASSIUM 4.1 mmol/L (3.5-5.1); SODIUM 141 mmol/L (136-145)
--- NOTE | 2017-12-11 10:03 | PN ---
[facility] CIWA - CIWA Score Nausea/Vomitin Muscle Tremors: 3 Anxiety: 3 Agitation: 2 Paroxysmal Sweats: 1-Minimal Palms Moist Orientation: 0-Oriented Tacttile Disturbances: 1-Very Mild Itch/Numbness Auditory Disturbances: 1-Very Mild Visual Disturbances: 0-None Headache: 2-Mild CIWA-Ar Total Score: 16 BHS Progress Note (SOAP) Subjective: ALERT,IRRITABLE,ANXIOUS,INTERRUPTED SLEEP,TREMOR Objective: 12/11/17 10:00 Vital Signs Temperature 98.1 F 12/11/17 09:12 Pulse Rate 91 H 12/11/17 09:12 Respiratory Rate 16 12/11/17 09:12 Blood Pressure 112/67 12/11/17 09:12 O2 Sat by Pulse Oximetry (%) EKG SINUS BRADYCARDIA,53/MIN, QT 596/474 NO CHEST PAIN,NO SOB,NO DIZZINESS LABS PENDING Assessment: 12/11/17 10:01 WITHDRAWAL SYMPTOM Plan: CONTINUE DETOX
[2017-12-11 10:20] LABS: ALK PHOS 69 U/L (45-117); ANION GAP 9 (8-16); BILIRUBIN,TOTAL 0.6 mg/dL (0.2-1.0); BLOOD UREA NITROGEN 10 mg/dL (7-18); CALCIUM 7.9 mg/dL (8.5-10.1); CO2 25 mmol/L (21-32); CREATININE 0.7 mg/dL (0.55-1.02); GLUCOSE,RANDOM 80 mg/dL (74-106); SGOT/AST 22 U/L (15-37); SGPT/ALT 23 U/L (12-78)
[2017-12-11] MEDS: PRENATAL VITAMINS W/ FOLIC ACID TABLET (FP) PO SCH (10:34)
[2017-12-11] MEDS: ARIPiprazole 5 MG TABLET (FP) PO SCH (10:35)
[2017-12-11] MEDS: NICOTINE 21 MG/24 HOURS TOPICAL PATCH TD SCH (10:35)
[2017-12-11] MEDS: SERTRALINE HCL 50 MG TABLET (FP) PO SCH (10:37)
[2017-12-11] MEDS: FERROUS SO4 325 MG TABLET (FP) PO SCH ×2 (12:16→17:01)
[2017-12-11 13:07] LABS: ANISOCYTOSIS 1+
[2017-12-11 14:14] LABS: URINE APPEARANCE CLEAR; URINE BILIRUBIN NEGATIVE (<2.0 mg/dL); URINE COLOR LTYELLOW; URINE GLUCOSE (UA) NEGATIVE (NEGATIVE); URINE KETONE NEGATIVE (NEGATIVE); URINE LEUK ESTERASE NEGATIVE (NEGATIVE); URINE NITRITE NEGATIVE (NEGATIVE); URINE PROTEIN NEGATIVE (NEGATIVE)
--- NOTE | 2017-12-11 16:33 | EKG ---
Test Reason : Blood Pressure : / mmHG Vent. Rate : 096 BPM Atrial Rate : 096 BPM P-R Int : 140 ms QRS Dur : 078 ms QT Int : 384 ms P-R-T Axes : 073 052 048 degrees QTc Int : 485 ms NORMAL SINUS RHYTHM PROLONGED QT ABNORMAL ECG WHEN COMPARED WITH ECG OF 14-OCT-2017 11:09, NO SIGNIFICANT CHANGE WAS FOUND Confirmed by HERMILA SHORE MD ([id number]) on 12/11/2017 4:33:01 PM Referred By: Confirmed By:HERMILA SHORE MD
[2017-12-11] MEDS: MIRTAZAPINE 15 MG TABLET (FP) PO SCH (22:22)
[2017-12-11] MEDS: traZODone HCL 50 MG TABLET (FP) PO SCH (22:23)
[2017-12-11] MEDS: THIAMINE HCL 100 MG TABLET (FP) PO SCH (22:23)
[2017-12-11] MEDS: OLANZapine 5 MG TABLET PO SCH (22:23)
[2017-12-12] MEDS: chlordiazePOXIDE HCL 25 MG CAPSULE PO SCH ×3 (07:27→16:42)
[2017-12-12] MEDS: SERTRALINE HCL 50 MG TABLET (FP) PO SCH (10:57)
[2017-12-12] MEDS: ARIPiprazole 5 MG TABLET (FP) PO SCH (10:57)
[2017-12-12] MEDS: FERROUS SO4 325 MG TABLET (FP) PO SCH ×3 (10:58→16:42)
[2017-12-12] MEDS: PRENATAL VITAMINS W/ FOLIC ACID TABLET (FP) PO SCH (10:58)
[2017-12-12] MEDS: NICOTINE 21 MG/24 HOURS TOPICAL PATCH TD SCH (10:58)
--- NOTE | 2017-12-12 11:11 | PN ---
[facility] CIWA - CIWA Score Nausea/Vomitin-Mild Nausea/No Vomiting Muscle Tremors: 4-Moderate,w/Arms Extend Anxiety: 4-Mod. Anxious/Guarded Agitation: 1-Slight > Activity Paroxysmal Sweats: 1-Minimal Palms Moist Orientation: 0-Oriented Tacttile Disturbances: 1-Very Mild Itch/Numbness Auditory Disturbances: 0-None Visual Disturbances: 0-None Headache: 0-None Present CIWA-Ar Total Score: 12 BHS Progress Note (SOAP) Subjective: sweat tremor trouble sleep at night mild gi distress anxiety restlessness Objective: 12/12/17 11:13 Vital Signs Temperature 96.4 F L 12/12/17 09:47 Pulse Rate 99 H 12/12/17 09:47 Respiratory Rate 16 12/12/17 09:47 Blood Pressure 123/77 12/12/17 09:47 O2 Sat by Pulse Oximetry (%) Laboratory Last Values WBC 8.1 K/mm3 (4.0-10.0) 12/11/17 07:00 RBC 3.97 M/mm3 (3.60-5.2) 12/11/17 07:00 Hgb 8.0 GM/dL (10.7-15.3) L 12/11/17 07:00 Hct 26.6 % (32.4-45.2) L 12/11/17 07:00 MCV 67.0 fl (80-96) L 12/11/17 07:00 MCH 20.2 pg (25.7-33.7) L 12/11/17 07:00 MCHC 30.2 g/dl (32.0-36.0) L 12/11/17 07:00 RDW 22.4 % (11.6-15.6) H 12/11/17 07:00 Plt Count 336 K/MM3 (134-434) 12/11/17 07:00 MPV 7.0 fl (7.5-11.1) L 12/11/17 07:00 Hypochromia 2+ 12/11/17 07:00 Anisocytosis 1+ 12/11/17 07:00 Microcytosis 1+ 12/11/17 07:00 Sodium 141 mmol/L (136-145) 12/11/17 07:00 Potassium 4.1 mmol/L (3.5-5.1) 12/11/17 07:00 Chloride 107 mmol/L (98-107) 12/11/17 07:00 Carbon Dioxide 25 mmol/L (21-32) 12/11/17 07:00 Anion Gap 9 (8-16) 12/11/17 07:00 BUN 10 mg/dL (7-18) 12/11/17 07:00 Creatinine 0.7 mg/dL (0.55-1.02) 12/11/17 07:00 Creat Clearance w eGFR > 60 (>60) 12/11/17 07:00 Random Glucose 80 mg/dL (74-106) 12/11/17 07:00 Calcium 7.9 mg/dL (8.5-10.1) L 12/11/17 07:00 Total Bilirubin 0.6 mg/dL (0.2-1.0) D 12/11/17 07:00 AST 22 U/L (15-37) 12/11/17 07:00 ALT 23 U/L (12-78) 12/11/17 07:00 Alkaline Phosphatase 69 U/L (45-117) 12/11/17 07:00 Total Protein 6.0 g/dl (6.4-8.2) L 12/11/17 07:00 Albumin 3.0 g/dl (3.4-5.0) L 12/11/17 07:00 Urine Color Ltyellow 12/11/17 10:15 Urine Appearance Clear 12/11/17 10:15 Urine pH 7.0 (5.0-8.0) D 12/11/17 10:15 Ur Specific [place] 1.015 (1.001-1.035) 12/11/17 10:15 Urine Protein Negative (NEGATIVE) 12/11/17 10:15 Urine Glucose (UA) Negative (NEGATIVE) 12/11/17 10:15 Urine Ketones Negative (NEGATIVE) 12/11/17 10:15 Urine Blood Negative (NEGATIVE) 12/11/17 10:15 Urine Nitrite Negative (NEGATIVE) 12/11/17 10:15 Urine Bilirubin Negative (<2.0 mg/dL) 12/11/17 10:15 Urine Urobilinogen 2.0 mg/dL (0.2-1.0) H 12/11/17 10:15 Ur Leukocyte Esterase Negative (NEGATIVE) 12/11/17 10:15 RPR Titer Nonreactive (NONREACTIVE) 12/11/17 07:00 HIV 1&2 Antibody Screen Negative 12/11/17 08:00 HIV P24 Antigen Negative 12/11/17 08:00 lab noted Assessment: 12/12/17 11:13 withdrawal sx Plan: continue detox
[2017-12-12] MEDS: hydrOXYzine PAMOATE 50 MG CAPSULE (FP) PO PRN ×2 (12:26→17:43)
[2017-12-12] MEDS: MAGNESIUM HYDROX 2400MG/30ML ORAL SUSPENSION 30 ML CUP PO PRN (16:43)
[2017-12-12] MEDS: OLANZapine 5 MG TABLET PO SCH (22:36)
[2017-12-12] MEDS: THIAMINE HCL 100 MG TABLET (FP) PO SCH (22:36)
[2017-12-12] MEDS: MIRTAZAPINE 15 MG TABLET (FP) PO SCH (22:37)
[2017-12-12] MEDS: traZODone HCL 50 MG TABLET (FP) PO SCH (22:37)
[2017-12-12] MEDS: chlordiazePOXIDE 5 MG CAPSULE PO SCH (22:37)
[2017-12-13] MEDS: chlordiazePOXIDE 5 MG CAPSULE PO SCH ×3 (06:04→17:30)
[2017-12-13] MEDS: FERROUS SO4 325 MG TABLET (FP) PO SCH ×3 (08:00→17:30)
[2017-12-13] MEDS: PRENATAL VITAMINS W/ FOLIC ACID TABLET (FP) PO SCH (10:47)
[2017-12-13] MEDS: ARIPiprazole 5 MG TABLET (FP) PO SCH (10:48)
[2017-12-13] MEDS: SERTRALINE HCL 50 MG TABLET (FP) PO SCH (10:48)
[2017-12-13] MEDS ORDERED: hydrOXYzine PAMOATE 50 MG CAPSULE (FP) PO PRN (11:15)
[2017-12-13] MEDS: NICOTINE 21 MG/24 HOURS TOPICAL PATCH TD SCH (11:56)
[2017-12-13] MEDS: hydrOXYzine PAMOATE 50 MG CAPSULE (FP) PO PRN ×3 (12:28→22:28)
[2017-12-13] MEDS: MAGNESIUM HYDROX 2400MG/30ML ORAL SUSPENSION 30 ML CUP PO PRN (12:30)
--- NOTE | 2017-12-13 14:08 | PN ---
S Progress Note (SOAP) Subjective: ALERT,IRRITABLE,ANXIOUS,INTERRUPTED SLEEP Objective: 12/13/17 14:07 Vital Signs Temperature 97.9 F 12/13/17 09:44 Pulse Rate 92 H 12/13/17 09:44 Respiratory Rate 18 12/13/17 09:44 Blood Pressure 98/56 12/13/17 09:44 O2 Sat by Pulse Oximetry (%) Assessment: 12/13/17 14:08 WITHDRAWAL SYMPTOM Plan: CONTINUE DETOX,DISCHARGE IN AM
[2017-12-13] MEDS: MIRTAZAPINE 15 MG TABLET (FP) PO SCH (22:28)
[2017-12-13] MEDS: THIAMINE HCL 100 MG TABLET (FP) PO SCH (22:28)
[2017-12-13] MEDS: chlordiazePOXIDE HCL 10 MG CAPSULE PO SCH (22:28)
[2017-12-13] MEDS: traZODone HCL 50 MG TABLET (FP) PO SCH (22:28)
[2017-12-13] MEDS: OLANZapine 5 MG TABLET PO SCH (22:29)
[2017-12-14] MEDS: chlordiazePOXIDE HCL 10 MG CAPSULE PO SCH (05:59)
--- NOTE | 2017-12-14 08:47 | PN ---
S Progress Note (SOAP) Subjective: alert,no complaint Objective: 12/14/17 08:44 Vital Signs Temperature 98.2 F 12/14/17 07:44 Pulse Rate 98 H 12/14/17 07:44 Respiratory Rate 19 12/14/17 07:44 Blood Pressure 107/88 12/14/17 07:44 O2 Sat by Pulse Oximetry (%) Assessment: 12/14/17 08:44 detox completed,no withdrawal symptom Plan: detox completed,discharge today,follow up with after care program as arrangement
--- NOTE | 2017-12-14 08:53 | DS ---
[facility] Detox Discharge Summary Admission Date: 12/10/17 Discharge Date: 12/14/17 - History Present History: Alcohol Dependence Additional Comments: follow up with after care program as arrangement Pertinent Past History: nicotine dependence insomnia anemia s/p castric bypass - Physical Exam Results Vital Signs: Vital Signs Temperature 98.2 F 12/14/17 07:44 Pulse Rate 98 H 12/14/17 07:44 Respiratory Rate 19 12/14/17 07:44 Blood Pressure 107/88 12/14/17 07:44 O2 Sat by Pulse Oximetry (%) Pertinent Admission Physical Exam Findings: withdrawal signs and symptom Vital Signs Temperature 98.2 F 12/14/17 07:44 Pulse Rate 98 H 12/14/17 07:44 Respiratory Rate 19 12/14/17 07:44 Blood Pressure 107/88 12/14/17 07:44 O2 Sat by Pulse Oximetry (%) Laboratory Last Values WBC 8.1 K/mm3 (4.0-10.0) 12/11/17 07:00 RBC 3.97 M/mm3 (3.60-5.2) 12/11/17 07:00 Hgb 8.0 GM/dL (10.7-15.3) L 12/11/17 07:00 Hct 26.6 % (32.4-45.2) L 12/11/17 07:00 MCV 67.0 fl (80-96) L 12/11/17 07:00 MCH 20.2 pg (25.7-33.7) L 12/11/17 07:00 MCHC 30.2 g/dl (32.0-36.0) L 12/11/17 07:00 RDW 22.4 % (11.6-15.6) H 12/11/17 07:00 Plt Count 336 K/MM3 (134-434) 12/11/17 07:00 MPV 7.0 fl (7.5-11.1) L 12/11/17 07:00 Hypochromia 2+ 12/11/17 07:00 Anisocytosis 1+ 12/11/17 07:00 Microcytosis 1+ 12/11/17 07:00 Sodium 141 mmol/L (136-145) 12/11/17 07:00 Potassium 4.1 mmol/L (3.5-5.1) 12/11/17 07:00 Chloride 107 mmol/L (98-107) 12/11/17 07:00 Carbon Dioxide 25 mmol/L (21-32) 12/11/17 07:00 Anion Gap 9 (8-16) 12/11/17 07:00 BUN 10 mg/dL (7-18) 12/11/17 07:00 Creatinine 0.7 mg/dL (0.55-1.02) 12/11/17 07:00 Creat Clearance w eGFR > 60 (>60) 12/11/17 07:00 Random Glucose 80 mg/dL (74-106) 12/11/17 07:00 Calcium 7.9 mg/dL (8.5-10.1) L 12/11/17 07:00 Total Bilirubin 0.6 mg/dL (0.2-1.0) D 12/11/17 07:00 AST 22 U/L (15-37) 12/11/17 07:00 ALT 23 U/L (12-78) 12/11/17 07:00 Alkaline Phosphatase 69 U/L (45-117) 12/11/17 07:00 Total Protein 6.0 g/dl (6.4-8.2) L 12/11/17 07:00 Albumin 3.0 g/dl (3.4-5.0) L 12/11/17 07:00 Urine Color Ltyellow 12/11/17 10:15 Urine Appearance Clear 12/11/17 10:15 Urine pH 7.0 (5.0-8.0) D 12/11/17 10:15 Ur Specific [place] 1.015 (1.001-1.035) 12/11/17 10:15 Urine Protein Negative (NEGATIVE) 12/11/17 10:15 Urine Glucose (UA) Negative (NEGATIVE) 12/11/17 10:15 Urine Ketones Negative (NEGATIVE) 12/11/17 10:15 Urine Blood Negative (NEGATIVE) 12/11/17 10:15 Urine Nitrite Negative (NEGATIVE) 12/11/17 10:15 Urine Bilirubin Negative (<2.0 mg/dL) 12/11/17 10:15 Urine Urobilinogen 2.0 mg/dL (0.2-1.0) H 12/11/17 10:15 Ur Leukocyte Esterase Negative (NEGATIVE) 12/11/17 10:15 RPR Titer Nonreactive (NONREACTIVE) 12/11/17 07:00 HIV 1&2 Antibody Screen Negative 12/11/17 08:00 HIV P24 Antigen Negative 12/11/17 08:00 - Treatment Hospital Course: Detox Protocol Followed, Detoxed Safely, Responded well, Discharged Condition Good Patient has Accepted a Rehab Referral to: declined - Medication Discharge Medications: Ambulatory Orders Docusate Sodium [Colace -] 300 mg PO HS capsule 10/16/17 Trazodone HCl 200 mg PO HS 10/16/17 Duloxetine HCl [Cymbalta -] 60 mg PO DAILY #30 capsule. 10/29/17 Gabapentin [Neurontin -] 300 mg PO TID #90 capsule 10/29/17 Mirtazapine [Remeron -] 45 mg PO HS #90 tablet 10/29/17 traZODone HCL [Desyrel -] 150 mg PO HS #90 tablet 10/29/17 Sennosides [Senna -] 2 tab PO HS #20 tablet 10/30/17 - Diagnosis (1) Alcohol dependence with uncomplicated withdrawal Current Visit: Yes Status: Acute (2) Nicotine dependence Current Visit: Yes Status: Chronic Qualifiers: Nicotine product type: cigarettes Substance use status: uncomplicated Qualified Code(s): F17.210 - Nicotine dependence, cigarettes, uncomplicated (3) Insomnia Current Visit: Yes Status: Suspected Qualifiers: Insomnia type: drug-induced Qualified Code(s): F19.982 - Other psychoactive substance use, unspecified with psychoactive substance-induced sleep disorder (4) Substance induced mood disorder Current Visit: Yes Status: Suspected (5) History of anemia Current Visit: Yes Status: Acute (6) S/P gastric bypass Current Visit: No Status: Inactive - AMA Did Patient Leave Against Medical Advice: No
[2017-12-14] MEDS: ARIPiprazole 5 MG TABLET (FP) PO SCH (09:06)
[2017-12-14] MEDS: FERROUS SO4 325 MG TABLET (FP) PO SCH (09:09)
[2017-12-14] MEDS: SERTRALINE HCL 50 MG TABLET (FP) PO SCH (09:11)
[2017-12-14 09:27] VITALS: BP 128/67; PULSE 105; TEMP 97.7
== END 2017-12-14 09:32 | disposition home or self-care (01) | DRG 774 ==
LOC: YASAS 19:24 → Y6N 23:33
PROVIDERS: ADMIT Surgery; ATTEND Surgery
PROC: HZ2ZZZZ Detoxification Services for Substance Abuse Treatment (ICD-10-PCS; principal; 2017-12-10)
DX: F10.230 Alcohol dependence with withdrawal, uncomplicated (principal); F14.20 Cocaine dependence, uncomplicated; F17.210 Nicotine dependence, cigarettes, uncomplicated; F19.24 Other psychoactive substance dependence with psychoactive substance-induced mood disorder; F31.81 Bipolar II disorder; F39 Unspecified mood [affective] disorder; D64.9 Anemia, unspecified; G47.00 Insomnia, unspecified; Z98.84 Bariatric surgery status
CPT/HCPCS: 36415; 80053; 81003; 85027; 86593; 87389; 93005; 93010

== ENCOUNTER 2019-02-23 19:08 | Inpatient (IN) | payer OTHER ==
[2019-02-23 21:11] VITALS: BMI 28.3
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
[2019-02-23] MEDS ORDERED: guaiFENesin 200 MG/10 ML 10 ML UNIT-DOSE CUPS PO PRN (22:00)
[2019-02-23] MEDS ORDERED: MAG HYDROX/AL HYDROX/SIMETH 30 ML UNIT-DOSE CUP PO PRN (22:00)
[2019-02-23] MEDS ORDERED: MAGNESIUM HYDROX 2400MG/30ML ORAL SUSPENSION 30 ML CUP PO PRN (22:00)
[2019-02-23] MEDS ORDERED: MENTHOL/PHENOL 1 EACH UD MM PRN (22:00)
[2019-02-23] MEDS ORDERED: DICYCLOMINE HCL 10 MG CAPSULE PO PRN (22:00)
[2019-02-23] MEDS ORDERED: P-EPHED 60MG/TRIPROLIDI 2.5MG TABLET PO PRN (22:00)
[2019-02-23] MEDS ORDERED: NICOTINE POLACRILEX 2 MG GUM BUC PRN (22:00)
[2019-02-23] MEDS ORDERED: MAGNESIUM CITRATE 300 ML BOTTLE PO PRN (22:00)
[2019-02-23] MEDS ORDERED: BISMUTH SUBSALICYLATE 524 MG/30 ML UD PO PRN (22:00)
[2019-02-23] MEDS ORDERED: IBUPROFEN 400 MG TABLET (FP) PO PRN (22:00)
[2019-02-23] MEDS ORDERED: ONDANSETRON *ODT* 4 MG TABLET SL PRN (22:00)
[2019-02-23] MEDS ORDERED: chlordiazePOXIDE HCL 25 MG CAPSULE PO PRN (22:00)
[2019-02-23] MEDS ORDERED: ACETAMINOPHEN 325 MG TABLET (FP) PO PRN ×2 (22:00)
[2019-02-23] MEDS: chlordiazePOXIDE HCL 25 MG CAPSULE PO SCH (22:54)
[2019-02-23] MEDS: METHOCARBAMOL 500 MG TABLET PO PRN (22:54)
[2019-02-23] MEDS: MELATONIN 5 MG TABLETS PO PRN (22:55)
[2019-02-23] MEDS: THIAMINE HCL 100 MG TABLET (FP) PO SCH (22:55)
[2019-02-24] MEDS: chlordiazePOXIDE HCL 25 MG CAPSULE PO SCH ×4 (05:46→22:47)
[2019-02-24] MEDS: METHOCARBAMOL 500 MG TABLET PO PRN ×3 (05:49→22:48)
[2019-02-24] MEDS ORDERED: PRENATAL VITAMINS W/ FOLIC ACID TABLET (FP) PO SCH (10:00)
[2019-02-24] MEDS ORDERED: NICOTINE 21 MG/24 HOURS TOPICAL PATCH TD SCH (10:00)
[2019-02-24] MEDS: hydrOXYzine PAMOATE 25 MG CAPSULE (FP) PO PRN ×2 (10:48→17:44)
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
[2019-02-24 11:18] LABS: ALBUMIN 3.2 g/dl (3.4-5.0); BLOOD UREA NITROGEN 14.6 mg/dL (7-18); CALCIUM 8.6 mg/dL (8.5-10.1); CREATININE 0.7 mg/dL (0.55-1.3); POTASSIUM 3.9 mmol/L (3.5-5.1); TOT PROT 6.6 g/dl (6.4-8.2)
--- NOTE | 2019-02-24 11:31 | PN ---
S CIWA - CIWA Score Nausea/Vomitin-No Nausea/No Vomiting Muscle Tremors: 3 Anxiety: 3 Agitation: 3 Paroxysmal Sweats: 2 Orientation: 0-Oriented Tacttile Disturbances: 0-None Auditory Disturbances: 0-None Visual Disturbances: 0-None Headache: 1-Very Mild CIWA-Ar Total Score: 12 S Progress Note (SOAP) Subjective: i have a UTI it de souza with i urinate and going frequently sweats shakes interrupted sleep body aches agitation nausea Objective: 02/24/19 11:29 Vital Signs Temperature 97.7 F 02/24/19 10:02 Pulse Rate 91 H 02/24/19 10:02 Respiratory Rate 16 02/24/19 10:02 Blood Pressure 112/72 02/24/19 10:02 O2 Sat by Pulse Oximetry (%) Laboratory Tests 02/24/19 07:00 Sodium 140 Potassium 3.9 Chloride 112 H Carbon Dioxide 20 L Anion Gap 8 BUN 14.6 Creatinine 0.7 Est GFR (CKD-EPI)AfAm 122.99 Est GFR (CKD-EPI)NonAf 106.12 Random Glucose 81 Calcium 8.6 Total Bilirubin 1.0 AST 21 ALT 22 Alkaline Phosphatase 79 Total Protein 6.6 Albumin 3.2 L rest of labs pending aaox3 lying in bed no acute distress Assessment: 02/24/19 11:30 withdrawal sx Plan: continue detox zofran prn microbid 50mg q6hr x 7 days ordered increase fluids
[2019-02-24 11:55] LABS: HEMATOCRIT 35.2 % (32.4-45.2); MCH 24.6 pg (25.7-33.7); MCHC 31.2 g/dl (32.0-36.0); MEAN CELL VOLUME 78.8 fl (80-96); MEAN PLT VOLUME 7.7 fl (7.5-11.1); PLATELET COUNT 288 K/MM3 (134-434); RBC 4.47 M/mm3 (3.60-5.2); RDW 16.8 % (11.6-15.6); WHITE BLOOD COUNT 7.8 K/mm3 (4.0-10.0)
[2019-02-24] MEDS: NITROFURANTOIN MACROCRYSTAL 50 MG CAPSULE (FP) PO SCH ×3 (12:33→23:51)
[2019-02-24] MEDS: THIAMINE HCL 100 MG TABLET (FP) PO SCH (22:47)
[2019-02-24] MEDS: MELATONIN 5 MG TABLETS PO PRN (22:47)
[2019-02-25] MEDS ORDERED: chlordiazePOXIDE HCL 25 MG CAPSULE PO SCH (05:00)
[2019-02-25] MEDS: NITROFURANTOIN MACROCRYSTAL 50 MG CAPSULE (FP) PO SCH (06:07)
[2019-02-25] MEDS: METHOCARBAMOL 500 MG TABLET PO PRN (06:08)
[2019-02-25 08:14] VITALS: TEMP 97.7
[2019-02-25 09:42] VITALS: BP 100/59; PULSE 96
--- NOTE | 2019-02-25 11:27 | PN ---
S Progress Note Note: pt admitted in withdrawals pt c/o of withdrawals s/s and aggressive symptomatic management attempted however pt in spite of extensive motivational counseling regarding the risk of relapse, seizures, DT and or loss, pt chose to sign out AMA.
--- NOTE | 2019-02-25 11:39 | DS ---
[facility] Detox Discharge Summary Admission Date: 02/23/19 - History Present History: Alcohol Dependence - Physical Exam Results Vital Signs: Vital Signs Temperature 97.7 F 02/25/19 09:42 Pulse Rate 96 H 02/25/19 09:42 Respiratory Rate 16 02/25/19 09:42 Blood Pressure 100/59 L 02/25/19 09:42 O2 Sat by Pulse Oximetry (%) Pertinent Admission Physical Exam Findings: pt arrived in withdrawals Laboratory Tests 02/24/19 02/24/19 02/24/19 07:00 07:00 07:00 WBC 7.8 RBC 4.47 Hgb 11.0 Hct 35.2 D MCV 78.8 L MCH 24.6 L D MCHC 31.2 L RDW 16.8 H Plt Count 288 MPV 7.7 Sodium 140 Potassium 3.9 Chloride 112 H Carbon Dioxide 20 L Anion Gap 8 BUN 14.6 Creatinine 0.7 Est GFR (CKD-EPI)AfAm 122.99 Est GFR (CKD-EPI)NonAf 106.12 Random Glucose 81 Calcium 8.6 Total Bilirubin 1.0 AST 21 ALT 22 Alkaline Phosphatase 79 Total Protein 6.6 Albumin 3.2 L RPR Titer Nonreactive today pt chose to sign out ama pt was encouraged to stay and complete since she still showed s/s of withdrawals. pt states she needed to go home to feed her dog. Pt encouraged to do her best to abstain from alcohol - Treatment Patient has Accepted a Rehab Referral to: referral provided - Medication Discharge Medications: Ambulatory Orders Docusate Sodium [Colace -] 300 mg PO HS capsule 10/16/17 traZODone HCL [Trazodone HCl] 200 mg PO HS 10/16/17 Duloxetine HCl [Cymbalta -] 60 mg PO DAILY #30 capsule. 10/29/17 Gabapentin [Neurontin -] 300 mg PO TID #90 capsule 10/29/17 Mirtazapine [Remeron -] 45 mg PO HS #90 tablet 10/29/17 traZODone HCL [Desyrel -] 150 mg PO HS #90 tablet 10/29/17 Sennosides [Senna -] 2 tab PO HS #20 tablet 10/30/17 Ferrous Sulfate [Feosol] 325 mg PO TIDCM #90 ud 12/14/17 - Diagnosis (1) Alcohol dependence with uncomplicated withdrawal Status: Chronic (2) Anxious appearance Status: Acute (3) Depressed affect Status: Acute (4) Bipolar II disorder Status: Chronic (5) Cocaine dependence Status: Chronic Qualifiers: Substance use status: uncomplicated Qualified Code(s): F14.20 - Cocaine dependence, uncomplicated (6) Constipation Status: Chronic Qualifiers: Constipation type: slow transit constipation Qualified Code(s): K59.01 - Slow transit constipation (7) Lower back pain Status: Chronic Qualifiers: Chronicity: chronic Sciatica presence: with sciatica (8) Nicotine dependence Status: Chronic Qualifiers: Nicotine product type: cigarettes Substance use status: uncomplicated Qualified Code(s): F17.210 - Nicotine dependence, cigarettes, uncomplicated (9) Sciatic nerve pain Status: Chronic (10) Insomnia Status: Suspected Qualifiers: Insomnia type: drug-induced Qualified Code(s): F19.982 - Other psychoactive substance use, unspecified with psychoactive substance-induced sleep disorder (11) Substance induced mood disorder Status: Suspected (12) History of carpal tunnel surgery of right wrist Status: Chronic (13) History of gastric bypass Status: Chronic (14) S/P gastric bypass Status: Inactive (15) UTI (urinary tract infection) Status: Acute Qualifiers: Urinary tract infection type: acute cystitis Hematuria presence: without hematuria Qualified Code(s): N30.00 - Acute cystitis without hematuria - AMA Did Patient Leave Against Medical Advice: Yes
[2019-02-26] MEDS ORDERED: chlordiazePOXIDE HCL 10 MG CAPSULE PO PRN
[2019-02-26] MEDS ORDERED: chlordiazePOXIDE HCL 10 MG CAPSULE PO SCH (05:00)
[2019-02-27] MEDS ORDERED: chlordiazePOXIDE HCL 10 MG CAPSULE PO SCH (05:00)
[2019-02-28] MEDS ORDERED: chlordiazePOXIDE HCL 10 MG CAPSULE PO ONE (05:00)
== END 2019-02-25 10:08 | disposition left against medical advice (07) | DRG 894 ==
LOC: YASAS 19:08 → Y6N 21:57
PROVIDERS: ADMIT Surgery; ATTEND Surgery
PROC: HZ2ZZZZ Detoxification Services for Substance Abuse Treatment (ICD-10-PCS; principal; 2019-02-23)
DX: F10.230 Alcohol dependence with withdrawal, uncomplicated (principal); F14.20 Cocaine dependence, uncomplicated; F31.81 Bipolar II disorder; N30.00 Acute cystitis without hematuria; F10.220 Alcohol dependence with intoxication, uncomplicated; F17.210 Nicotine dependence, cigarettes, uncomplicated; F41.9 Anxiety disorder, unspecified; F19.24 Other psychoactive substance dependence with psychoactive substance-induced mood disorder; K59.01 Slow transit constipation; M54.40 Lumbago with sciatica, unspecified side; G47.00 Insomnia, unspecified; J45.909 Unspecified asthma, uncomplicated; R00.0 Tachycardia, unspecified; R63.8 Other symptoms and signs concerning food and fluid intake; Z62.810 Personal history of physical and sexual abuse in childhood; Z98.84 Bariatric surgery status
CPT/HCPCS: 36415; 80053; 81025; 85027; 86593

== ENCOUNTER 2019-03-08 15:07 | Inpatient (IN) | payer OTHER ==
[2019-03-08 17:19] VITALS: BMI 33.8
--- NOTE | 2019-03-08 19:43 | PN ---
Teaching Attending Note Name of Resident: Mary Fernando ATTENDING PHYSICIAN STATEMENT I saw and evaluated the patient. I reviewed the resident's note and discussed the case with the resident. I agree with the resident's findings and plan as documented. SUBJECTIVE: 43yo old with alcohol use disorder, left 10 days ago, says she relapsed. CIWA> 12 OBJECTIVE: Vital Signs - 24 hr 03/08/19 17:15 Temperature 98.1 F Pulse Rate 112 H Respiratory 20 Rate Blood Pressure 114/75 anxious alert and oriented tremulous ASSESSMENT AND PLAN: alcohol use disorder- librium detox
[2019-03-08] MEDS ORDERED: ACETAMINOPHEN 325 MG TABLET (FP) PO PRN ×2 (19:46)
[2019-03-08] MEDS ORDERED: MAGNESIUM CITRATE 300 ML BOTTLE PO PRN (19:46)
[2019-03-08] MEDS ORDERED: NICOTINE POLACRILEX 2 MG GUM BUC PRN (19:46)
[2019-03-08] MEDS ORDERED: MAG HYDROX/AL HYDROX/SIMETH 30 ML UNIT-DOSE CUP PO PRN (19:46)
[2019-03-08] MEDS ORDERED: MAGNESIUM HYDROX 2400MG/30ML ORAL SUSPENSION 30 ML CUP PO PRN (19:46)
[2019-03-08] MEDS ORDERED: MENTHOL/PHENOL 1 EACH UD MM PRN (19:46)
[2019-03-08] MEDS ORDERED: BISMUTH SUBSALICYLATE 524 MG/30 ML UD PO PRN (19:46)
[2019-03-08] MEDS ORDERED: chlordiazePOXIDE HCL 25 MG CAPSULE PO ONE (19:46)
--- NOTE | 2019-03-08 19:50 | HP ---
CIWA Score Nausea/Vomitin-Mild Nausea/No Vomiting Muscle Tremors: 4-Moderate,w/Arms Extend Anxiety: 5 Agitation: 5 Paroxysmal Sweats: 1-Minimal Palms Moist Orientation: 0-Oriented Tacttile Disturbances: 0-None Auditory Disturbances: 0-None Visual Disturbances: 0-None Headache: 0-None Present CIWA-Ar Total Score: 16 - Admission Criteria OASAS Guidelines: Admission for Medically Managed Detox: Requires at least one of the followin. CIWA greater than 12 2. Seizures within the past 24 hours 3. Delirium tremens within the past 24 hours 4. Hallucinations within the past 24 hours 5. Acute intervention needed for co occurring medical disorder 6. Acute intervention needed for co occurring psychiatric disorder 7. Severe withdrawal that cannot be handled at a lower level of care (continued vomiting, continued diarrhea, abnormal vital signs) requiring intravenous medication and/or fluids 8. Admission ROS [facility] Chief Complaint: detox from alcohol Allergies/Adverse Reactions: Allergies Allergy/AdvReac Type Severity Reaction Status Date / Time No Known Allergies Allergy Verified 03/08/19 17:11 History of Present Illness: Ms. Aragon is a 43yo female with alcohol use disorder and depression who presents for detox from alcohol. Her last drink was this morning. She reports drinking 2 pints of idania daily for the last 10 days. She was here on 02/24 and and left AMA. She reports being sober for 10 months prior to this month. She attended NA meetings. Pt reports hx of blackouts. Pt denies seizures. Reports heavy drinking since at 28. Pt reports smoking 1ppd since age 13. Pt reports also using $100 of crack today and was unaware it was laced with opiates. Pt reports anxiety, agitation, and tremors. Pt denies hallucinations, BRAUN, chest pain, SOB, tingling, and dizziness. PMH: alcohol use disorder, depression (not on medication currently) surgical hx: none meds: none NKDA - Ebola screening Have you traveled outside of the country in the last 21 days: No (N) Have you had contact with anyone from an Ebola affected area: No Do you have a fever: No - Review of Systems Constitutional: No Symptoms Reported EENT: reports: No Symptoms Reported Respiratory: denies: Shortness of Breath Cardiac: denies: Chest Pain GI: denies: Diarrhea, Nausea, Vomiting : reports: No Symptoms Reported Musculoskeletal: denies: Back Pain Integumentary: reports: No Symptoms Reported Neuro: denies: Headache, Dizziness Endocrine: reports: No Symptoms Reported Hematology: reports: No Symptoms Reported Psychiatric: reports: Judgement Intact, Anxious Patient History - Patient Medical History Hx Anemia: Yes Hx Asthma: No Hx Chronic Obstructive Pulmonary Disease (COPD): No Hx Cancer: No Hx Cardiac Disorders: No Hx Congestive Heart Failure: No Hx Hypertension: No Hx Hypercholesterolemia: No Hx Pacemaker: No HX Cerebrovascular Accident: No Hx Seizures: No Hx Dementia: No Hx Diabetes: No Hx Gastrointestinal Disorders: No Hx Liver Disease: No Hx Genitourinary Disorders: No Hx Sexually Transmitted Disorders: No Hx Renal Disease (ESRD): No Hx Thyroid Disease: No Hx Human Immunodeficiency Virus (HIV): No Hx Hepatitis C: No Hx Depression: Yes Hx Suicide Attempt: No Hx Bipolar Disorder: Yes Hx Schizophrenia: No - Patient Surgical History Past Surgical History: Yes Hx Neurologic Surgery: No Hx Cataract Extraction: No Hx Cardiac Surgery: No Hx Lung Surgery: No Hx Breast Surgery: No Hx Breast Biopsy: No Hx Abdominal Surgery: Yes (gastric bypass 2002) Hx Appendectomy: No Hx Cholecystectomy: No Hx Genitourinary Surgery: No Hx Section: No Hx Orthopedic Surgery: No Hx Hysterectomy: No Other Surgical History: Carpal tunnel syndrome both hands Anesthesia Reaction: No - PPD History Date: 05/28/17 Results: 0mm - Reproductive History Last Menstrual Period: 11/15/17 - Smoking Cessation Smoking history: Current every day smoker Have you smoked in the past 12 months: Yes Aproximately how many cigarettes per day: 15 Cigars Per Day: 0 Hx Chewing Tobacco Use: No Initiated information on smoking cessation: Yes 'Breaking Loose' booklet given: 03/08/19 - Substances abused Alcohol Substance route: Oral Frequency: Daily Amount used: liquor- 3 pints Age of first use: 43 Date of last use: 03/08/19 Crack Substance route: Inhalation Frequency: 1-3 times last 30 days Amount used: $200 today Age of first use: 40 Date of last use: 03/08/19 Family Disease History - Family Disease History Family Disease History: CA: Father (), Other: Father Admission Physical Exam [facility] - Vital Signs Vital Signs: Vital Signs - 24 hr 03/08/19 17:15 Temperature 98.1 F Pulse Rate 112 H Respiratory 20 Rate Blood Pressure 114/75 - Physical General Appearance: Yes: Alcohol on Breath, Irritable, Anxious HEENTM: Yes: Hearing grossly Normal, Normocephalic, NILA Respiratory: Yes: Lungs Clear, No Respiratory Distress Neck: Yes: Within Normal Limits Cardiology: Yes: Regular Rhythm, Regular Rate Abdominal: Yes: Normal Bowel Sounds, Non Tender Back: Yes: Normal Inspection Musculoskeletal: Yes: full range of Motion Extremities: Yes: Normal Range of Motion 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, Fully Oriented, Alert, Motor Strength 5/5 Integumentary: Yes: Within Normal Limits - Diagnostic (1) Alcohol use disorder Current Visit: Yes Status: Chronic (2) Depression Current Visit: Yes Status: Chronic Qualifiers: Major depression episode severity: unspecified (3) Insomnia Current Visit: Yes Status: Suspected Qualifiers: Insomnia type: drug-induced Qualified Code(s): F19.982 - Other psychoactive substance use, unspecified with psychoactive substance-induced sleep disorder Cleared for Admission [facility] - Detox or Rehab [facility] Level of Care: Medically Managed Breathalyzer - Breathalyzer Breathalyzer: 0.156 Urine Drug Screen - Test Device Lot number: [id number] Expiration date: 12/18/20 - Control Is test valid?: Yes - Results Drug screen NEGATIVE: No Urine drug screen results: ELISA-Cocaine, FEN-Fentanyl, MOP-Opiates, BZO- Benzodiazepines Inpatient Rehab Admission - Rehab Decision to Admit Inpatient rehab admission?: No
[2019-03-08] MEDS: THIAMINE HCL 100 MG TABLET (FP) PO SCH (21:07)
[2019-03-08] MEDS: METHOCARBAMOL 500 MG TABLET PO PRN (21:07)
[2019-03-08] MEDS: NICOTINE 14 MG/24 HOURS TOPICAL PATCH TD SCH (21:08)
[2019-03-08] MEDS: chlordiazePOXIDE HCL 25 MG CAPSULE PO SCH (22:02)
[2019-03-08] MEDS: MELATONIN 5 MG TABLETS PO PRN (22:02)
[2019-03-08] MEDS: hydrOXYzine PAMOATE 25 MG CAPSULE (FP) PO PRN (23:04)
[2019-03-08] MEDS: chlordiazePOXIDE HCL 25 MG CAPSULE PO PRN (23:04)
[2019-03-08] MEDS: IBUPROFEN 400 MG TABLET (FP) PO PRN (23:07)
[2019-03-09] MEDS: chlordiazePOXIDE HCL 25 MG CAPSULE PO SCH ×4 (05:29→22:25)
[2019-03-09] MEDS: METHOCARBAMOL 500 MG TABLET PO PRN ×3 (05:29→22:28)
[2019-03-09] MEDS: hydrOXYzine PAMOATE 25 MG CAPSULE (FP) PO PRN (05:29)
--- NOTE | 2019-03-09 09:46 | PN ---
S CIWA - CIWA Score Nausea/Vomitin-Mild Nausea/No Vomiting Muscle Tremors: 4-Moderate,w/Arms Extend Anxiety: 2 Agitation: 2 Paroxysmal Sweats: 3 Orientation: 0-Oriented Tacttile Disturbances: 1-Very Mild Itch/Numbness Auditory Disturbances: 0-None Visual Disturbances: 0-None Headache: 0-None Present CIWA-Ar Total Score: 13 [facility] Progress Note (SOAP) Subjective: 43 years old female admitted on 03/08/19 for acute alcohol withdrawal sx management doing well with librium detox regimen tremor sweat restlessness denies frequency and burning of urination encourage oral fluid Objective: 03/09/19 09:47 Vital Signs Temperature 97.5 F L 03/09/19 06:42 Pulse Rate 81 03/09/19 06:42 Respiratory Rate 18 03/09/19 06:42 Blood Pressure 120/81 03/09/19 06:42 O2 Sat by Pulse Oximetry (%) Laboratory Last Values POC Urine HCG, Qual Negative 03/08/19 17:42 lab pending Assessment: 03/09/19 09:48 alcohol withdrawal sx alert oriented x 3 03/09/19 09:48 S1S2 Regular no shortness of breath tolerate food and fluid well Plan: continue libirum detox regimen
[2019-03-09] MEDS: NICOTINE 14 MG/24 HOURS TOPICAL PATCH TD SCH (10:54)
[2019-03-09] MEDS: PRENATAL VITAMINS W/ FOLIC ACID TABLET (FP) PO SCH (10:54)
[2019-03-09] MEDS: IBUPROFEN 400 MG TABLET (FP) PO PRN (10:56)
[2019-03-09 11:06] LABS: ALBUMIN 3.1 g/dl (3.4-5.0); BILIRUBIN,TOTAL 0.9 mg/dL (0.2-1); BLOOD UREA NITROGEN 10.6 mg/dL (7-18); CALCIUM 8.5 mg/dL (8.5-10.1); CREATININE 0.6 mg/dL (0.55-1.3); POTASSIUM 3.7 mmol/L (3.5-5.1); TOT PROT 6.1 g/dl (6.4-8.2)
[2019-03-09 11:08] LABS: HEMOGLOBIN 10.6 GM/dL (10.7-15.3); MCHC 31.9 g/dl (32.0-36.0); MEAN CELL VOLUME 78.2 fl (80-96); MEAN PLT VOLUME 7.5 fl (7.5-11.1); PLATELET COUNT 241 K/MM3 (134-434); RBC 4.23 M/mm3 (3.60-5.2); RDW 17.8 % (11.6-15.6); WHITE BLOOD COUNT 5.9 K/mm3 (4.0-10.0)
[2019-03-09] MEDS: chlordiazePOXIDE HCL 25 MG CAPSULE PO PRN (14:24)
[2019-03-09] MEDS: MELATONIN 5 MG TABLETS PO PRN (22:25)
[2019-03-09] MEDS: THIAMINE HCL 100 MG TABLET (FP) PO SCH (22:25)
[2019-03-10] MEDS: chlordiazePOXIDE HCL 25 MG CAPSULE PO SCH ×5 (06:21→22:21)
--- NOTE | 2019-03-10 09:59 | PN ---
[facility] CIWA - CIWA Score Nausea/Vomitin-Mild Nausea/No Vomiting Muscle Tremors: 3 Anxiety: 2 Agitation: 2 Paroxysmal Sweats: 2 Orientation: 0-Oriented Tacttile Disturbances: 0-None Auditory Disturbances: 0-None Visual Disturbances: 0-None Headache: 0-None Present CIWA-Ar Total Score: 10 [facility] Progress Note (SOAP) Subjective: doing well with libirum detox regimen resting on bed comfortably speech clearly tolerate food and fluid well Objective: 03/10/19 09:57 Vital Signs Temperature 97.2 F L 03/10/19 09:34 Pulse Rate 76 03/10/19 09:34 Respiratory Rate 18 03/10/19 09:34 Blood Pressure 95/69 03/10/19 09:34 O2 Sat by Pulse Oximetry (%) Laboratory Last Values WBC 5.9 K/mm3 (4.0-10.0) 03/09/19 07:50 RBC 4.23 M/mm3 (3.60-5.2) 03/09/19 07:50 Hgb 10.6 GM/dL (10.7-15.3) L 03/09/19 07:50 Hct 33.0 % (32.4-45.2) 03/09/19 07:50 MCV 78.2 fl (80-96) L 03/09/19 07:50 MCH 25.0 pg (25.7-33.7) L 03/09/19 07:50 MCHC 31.9 g/dl (32.0-36.0) L 03/09/19 07:50 RDW 17.8 % (11.6-15.6) H 03/09/19 07:50 Plt Count 241 K/MM3 (134-434) 03/09/19 07:50 MPV 7.5 fl (7.5-11.1) 03/09/19 07:50 Sodium 140 mmol/L (136-145) 03/09/19 07:50 Potassium 3.7 mmol/L (3.5-5.1) 03/09/19 07:50 Chloride 105 mmol/L (98-107) 03/09/19 07:50 Carbon Dioxide 27 mmol/L (21-32) 03/09/19 07:50 Anion Gap 8 MMOL/L (8-16) 03/09/19 07:50 BUN 10.6 mg/dL (7-18) 03/09/19 07:50 Creatinine 0.6 mg/dL (0.55-1.3) 03/09/19 07:50 Est GFR (CKD-EPI)AfAm 129.39 03/09/19 07:50 Est GFR (CKD-EPI)NonAf 111.64 03/09/19 07:50 Random Glucose 77 mg/dL (74-106) 03/09/19 07:50 Calcium 8.5 mg/dL (8.5-10.1) 03/09/19 07:50 Total Bilirubin 0.9 mg/dL (0.2-1) 03/09/19 07:50 AST 24 U/L (15-37) 03/09/19 07:50 ALT 15 U/L (13-61) 03/09/19 07:50 Alkaline Phosphatase 82 U/L (45-117) 03/09/19 07:50 Total Protein 6.1 g/dl (6.4-8.2) L 03/09/19 07:50 Albumin 3.1 g/dl (3.4-5.0) L 03/09/19 07:50 POC Urine HCG, Qual Negative 03/08/19 17:42 RPR Titer Nonreactive (NONREACTIVE) 03/09/19 07:50 lab noted Assessment: 03/10/19 09:58 alcohol withdrawal sx alert oriented x 3 steady gait 03/10/19 09:58 S1S2 Regular Plan: continue librium detox
[2019-03-10] MEDS: PRENATAL VITAMINS W/ FOLIC ACID TABLET (FP) PO SCH (10:43)
[2019-03-10] MEDS: NICOTINE 14 MG/24 HOURS TOPICAL PATCH TD SCH (10:44)
[2019-03-10] MEDS: METHOCARBAMOL 500 MG TABLET PO PRN ×2 (13:20→22:23)
[2019-03-10] MEDS: chlordiazePOXIDE HCL 25 MG CAPSULE PO PRN (13:20)
[2019-03-10] MEDS: hydrOXYzine PAMOATE 25 MG CAPSULE (FP) PO PRN (18:05)
[2019-03-10] MEDS: THIAMINE HCL 100 MG TABLET (FP) PO SCH (22:21)
[2019-03-10] MEDS: MELATONIN 5 MG TABLETS PO PRN (22:22)
[2019-03-11] MEDS: chlordiazePOXIDE HCL 10 MG CAPSULE PO SCH ×3 (06:04→16:45)
--- NOTE | 2019-03-11 10:27 | PN ---
[facility] CIWA - CIWA Score Nausea/Vomitin-No Nausea/No Vomiting (diarrhea) Muscle Tremors: 2 Anxiety: 1-Mildly Anxious Agitation: 1-Slight > Activity Paroxysmal Sweats: 2 Orientation: 0-Oriented Tacttile Disturbances: 0-None Auditory Disturbances: 0-None Visual Disturbances: 0-None Headache: 0-None Present CIWA-Ar Total Score: 6 S Progress Note (SOAP) Subjective: doing well with librium detox regimen less tremor mild sweating report loose stool encourage papto [place] and oral fluid Objective: 03/11/19 10:28 Vital Signs Temperature 97.0 F L 03/11/19 09:33 Pulse Rate 73 03/11/19 09:33 Respiratory Rate 18 03/11/19 09:33 Blood Pressure 95/66 03/11/19 09:33 O2 Sat by Pulse Oximetry (%) Laboratory Last Values WBC 5.9 K/mm3 (4.0-10.0) 03/09/19 07:50 RBC 4.23 M/mm3 (3.60-5.2) 03/09/19 07:50 Hgb 10.6 GM/dL (10.7-15.3) L 03/09/19 07:50 Hct 33.0 % (32.4-45.2) 03/09/19 07:50 MCV 78.2 fl (80-96) L 03/09/19 07:50 MCH 25.0 pg (25.7-33.7) L 03/09/19 07:50 MCHC 31.9 g/dl (32.0-36.0) L 03/09/19 07:50 RDW 17.8 % (11.6-15.6) H 03/09/19 07:50 Plt Count 241 K/MM3 (134-434) 03/09/19 07:50 MPV 7.5 fl (7.5-11.1) 03/09/19 07:50 Sodium 140 mmol/L (136-145) 03/09/19 07:50 Potassium 3.7 mmol/L (3.5-5.1) 03/09/19 07:50 Chloride 105 mmol/L (98-107) 03/09/19 07:50 Carbon Dioxide 27 mmol/L (21-32) 03/09/19 07:50 Anion Gap 8 MMOL/L (8-16) 03/09/19 07:50 BUN 10.6 mg/dL (7-18) 03/09/19 07:50 Creatinine 0.6 mg/dL (0.55-1.3) 03/09/19 07:50 Est GFR (CKD-EPI)AfAm 129.39 03/09/19 07:50 Est GFR (CKD-EPI)NonAf 111.64 03/09/19 07:50 Random Glucose 77 mg/dL (74-106) 03/09/19 07:50 Calcium 8.5 mg/dL (8.5-10.1) 03/09/19 07:50 Total Bilirubin 0.9 mg/dL (0.2-1) 03/09/19 07:50 AST 24 U/L (15-37) 03/09/19 07:50 ALT 15 U/L (13-61) 03/09/19 07:50 Alkaline Phosphatase 82 U/L (45-117) 03/09/19 07:50 Total Protein 6.1 g/dl (6.4-8.2) L 03/09/19 07:50 Albumin 3.1 g/dl (3.4-5.0) L 03/09/19 07:50 POC Urine HCG, Qual Negative 03/08/19 17:42 RPR Titer Nonreactive (NONREACTIVE) 03/09/19 07:50 lab noted Assessment: 03/11/19 10:28 alcohol withdrawal sx alert oriented x 3 steady gait good skin turgur denies dizziness Plan: continue librium detox regimen
[2019-03-11] MEDS: PRENATAL VITAMINS W/ FOLIC ACID TABLET (FP) PO SCH (11:00)
[2019-03-11] MEDS: NICOTINE 14 MG/24 HOURS TOPICAL PATCH TD SCH (11:00)
[2019-03-11] MEDS: METHOCARBAMOL 500 MG TABLET PO PRN (12:01)
[2019-03-11] MEDS: hydrOXYzine PAMOATE 25 MG CAPSULE (FP) PO PRN ×2 (12:01→18:21)
[2019-03-11 13:25] LABS: EPI CELLS 2.4 /HPF (0-5/HPF); HYALINE CASTS 2 /lpf (0-8); URINE APPEARANCE CLOUDY; URINE BACTERIA 1556.9 /hpf (NEGATIVE); URINE BILIRUBIN NEGATIVE (NEGATIVE); URINE COLOR YELLOW; URINE GLUCOSE (UA) NEGATIVE (NEGATIVE); URINE KETONE NEGATIVE (NEGATIVE); URINE LEUK ESTERASE 1+ (NEGATIVE); URINE NITRITE POSITIVE (NEGATIVE); URINE PROTEIN NEGATIVE (NEGATIVE); URINE RBC 0 /hpf (0-4); URINE WBC 6 /hpf (0-5)
[2019-03-11 14:28] LABS: URINE CRYSTALS FEW /hpf
[2019-03-11] MEDS: chlordiazePOXIDE HCL 10 MG CAPSULE PO PRN ×2 (14:57→18:22)
[2019-03-11 17:50] VITALS: BP 110/69; PULSE 102; TEMP 97.3
--- NOTE | 2019-03-11 19:20 | DS ---
[facility] Detox Discharge Summary Admission Date: 03/08/19 Discharge Date: 03/11/19 - History Present History: Alcohol Dependence - Physical Exam Results Vital Signs: Vital Signs Temperature 97.3 F L 03/11/19 17:49 Pulse Rate 102 H 03/11/19 17:49 Respiratory Rate 20 03/11/19 17:49 Blood Pressure 110/69 03/11/19 17:49 O2 Sat by Pulse Oximetry (%) - Treatment Hospital Course: Detox Protocol Followed - Medication Discharge Medications: Ambulatory Orders NK [No Known Home Medication] 03/10/19 - AMA Did Patient Leave Against Medical Advice: Yes (pt desires ama departure)
[2019-03-12] MEDS ORDERED: chlordiazePOXIDE HCL 10 MG CAPSULE PO SCH (05:00)
[2019-03-13] MEDS ORDERED: chlordiazePOXIDE HCL 10 MG CAPSULE PO ONE (05:00)
== END 2019-03-11 19:21 | disposition left against medical advice (07) | DRG 894 ==
LOC: YASAS 15:07 → Y3N 19:41
PROVIDERS: ADMIT Surgery; ATTEND Surgery
PROC: HZ2ZZZZ Detoxification Services for Substance Abuse Treatment (ICD-10-PCS; principal; 2019-03-08)
DX: F10.230 Alcohol dependence with withdrawal, uncomplicated (principal); F10.282 Alcohol dependence with alcohol-induced sleep disorder; F17.210 Nicotine dependence, cigarettes, uncomplicated; F32.9 Major depressive disorder, single episode, unspecified; D64.9 Anemia, unspecified; Z98.84 Bariatric surgery status
CPT/HCPCS: 36415; 80053; 81003; 81025; 85027; 86593